=== PATIENT | male | born 1940 | race Caucasian/White ===

== ENCOUNTER → 2017-12-18 13:40 | Outpatient (CLI) | payer MEDICARE, OTHER, SELFPAY ==
[2017-12-18 14:04] LABS: Hematocrit 42.4 % (41-53); Mean Corpuscular HGB Conc 32.9 % (30-36); Mean Corpuscular Hemoglobin 27.9 PG (26-34); Mean Corpuscular Volume 84.9 fL (80-100); Platelet Count 179 X10^3/uL (150-400); Red Cell Distribution Width 17.6 % (11.6-14.8); White Blood Cell Count 7.3 X10^3/uL (4.5-11.0)
[2017-12-18 14:24] LABS: Alanine Aminotransferase 41 IU/L (21-72); Albumin 3.6 g/dL (3.5-5.0); Albumin Globulin Ratio 1.4 (1.0-2.8); Alkaline Phosphatase 75 U/L (38-126); Aspartate Aminotransferase 30 IU/L (17-59); BUN Creatinine Ratio 17.8 (6-22); Blood Urea Nitrogen 16 mg/dL (9-20); Calcium 8.8 mg/dL (8.4-10.2); Carbon Dioxide 29 mmol/L (22-32); Chloride 99 mmol/L (98-107); Estimated Glomerular Filt Rate > 60.0 mL/min (>60); Globulin 2.6 g/dL (1.7-4.1); Glucose 285 mg/dL (80-110); HEMOLYSIS 24 (0-50); Sodium 139 mmol/L (137-145); Total Protein 6.2 g/dL (6.3-8.2)
[2017-12-18 14:25] LABS: Potassium 5.6 mmol/L (3.4-5.1)
[2017-12-18 14:41] LABS: Free T4, Direct Thyroxine 1.11 ng/dL (0.78-2.19)
[2017-12-18 14:54] LABS: Thyroid Stimulating Hormone 0.83 uIU/mL (0.47-4.68)
== END ==
PROVIDERS: Psychiatry & Neurology Psychiatry; PCP Internal Medicine; Visit Provider Internal Medicine
DX: E11.9 Type 2 diabetes mellitus without complications (principal); D64.9 Anemia, unspecified; F33.9 Major depressive disorder, recurrent, unspecified
CPT/HCPCS: 36415; 80053; 83036; 84439; 84443; 85027

== ENCOUNTER → 2018-03-14 15:27 | Outpatient (CLI) | payer MEDICARE, OTHER, SELFPAY ==
[2018-03-14 17:01] LABS: Hemoglobin A1C% w Est Avg Glu 6.1 % (4.0-6.0)
[2018-03-14 17:22] LABS: BUN Creatinine Ratio 17.5 (6-22); Blood Urea Nitrogen 21 mg/dL (9-20); Calcium 8.9 mg/dL (8.4-10.2); Carbon Dioxide 31 mmol/L (22-32); Chloride 102 mmol/L (98-107); Estimated Glomerular Filt Rate 58.6 mL/min (>60); Glucose 161 mg/dL (80-110); HEMOLYSIS < 15 (0-50); Sodium 143 mmol/L (137-145)
== END ==
PROVIDERS: PCP Internal Medicine; Visit Provider Internal Medicine
DX: E11.65 Type 2 diabetes mellitus with hyperglycemia (principal)
CPT/HCPCS: 36415; 80048; 83036

== ENCOUNTER 2018-04-09 20:58 | Emergency (ER) | payer MEDICARE, OTHER, SELFPAY ==
--- NOTE | 2018-04-09 21:09 | ED_ITS ---
HPI - Abdominal Pain General Chief Complaint: Abdominal Pain Stated Complaint: abd pain Time Seen by Provider: 04/09/18 21:09 Source: patient Mode of arrival: ambulatory Limitations: no limitations History of Present Illness HPI narrative: 77-year-old male with a history of coronary artery disease and history of coronary artery bypass graft here for evaluation of epigastric or right upper quadrant abdominal pain. Patient states that it started approximately 30 min after he had ribs and ice cream for dinner. States that he has never had anything like this before. Symptoms been going on since just before arrival. The abdominal pain is associated with nausea and vomiting. No shortness of breath. Patient states that this is ?not heart pain?. Has not tried anything for this prior to arrival Related Data Home Medications Medication Instructions Recorded Confirmed aspirin 81 mg PO QDAY #0 02/27/17 03/12/18 Previous Rx's Medication Instructions Recorded insulin glargine [Lantus Solostar 40 unit SQ HS 90 Days #0 04/28/17 U-100 Insulin] furosemide 20 mg PO QAM #30 tab 05/07/17 Wiggins 5/16 Inch 0 item #100 06/13/17 Syringes: 1cc U-100 Insulin syr #200 06/13/17 Syringe 25g x 1 atorvastatin [Lipitor] 40 mg PO Q DAY #90 tab 06/25/17 fluoxetine 40 mg PO QDAY #180 cap 10/18/17 insulin aspart U-100 100 unit/mL 0 unit SUBCUT QIDACHS #9 box 03/11/18 subcutaneous pen metoprolol succinate [Toprol XL] 25 mg PO QDAY #90 tab 03/11/18 pantoprazole [Protonix] 40 mg PO QDAY #90 tab 03/11/18 Allergies Allergy/AdvReac Type Severity Reaction Status Date / Time amoxicillin [From Augmentin] AdvReac Intermediate DIARRHEA Verified 03/12/18 14: 17 cephalexin AdvReac Intermediate DIARRHEA Verified 03/12/18 14:17 clavulanic acid AdvReac Intermediate DIARRHEA Verified 03/12/18 14:17 [From Augmentin] metformin AdvReac Intermediate HEADACHE Verified 03/12/18 14:17 Review of Systems Constitutional Denies chills, Denies fever(s) and Denies malaise ENT Ears, Nose, Mouth, and Throat: Denies dizziness Cardiovascular Denies chest pain, Denies rapid heart rate, Denies radiating jaw, neck or arm pain, Denies dyspnea and Denies dyspnea on exertion Respiratory Denies dyspnea and Denies dyspnea on exertion Gastrointestinal Gastrointestinal: Reports abdominal pain, Denies change in stool character, Denies coffee ground emesis, Denies nausea and Denies vomiting Genitourinary Denies dysuria Musculoskeletal Denies myalgias and Denies arthralgias Integumentary/Breasts Denies lesions and Denies rash Neurologic Denies confusion and Denies dizziness Psychiatric Denies confusion Hematologic/Lymphatic Denies easy bleeding and Denies easy bruising Allergic/Immunologic Denies urticaria [facility] Medical History Anxiety (Chronic) Malignant neoplasm of head, 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) Anemia (Chronic) Coronary artery disease (Chronic) Diabetes mellitus (Chronic) Hyperlipidemia (Chronic) Skin cancer (Chronic) Surgical History History of radical neck surgery (Resolved ~2011) Status post coronary artery bypass graft (Inactive ~2005) Family History Father Fam hx-ischem heart disease Mother Family history of Alzheimer's disease Social History Smoking Status: Never smoker Exam Initial Vital Signs Initial Vital Signs: Vital Signs Temperature 97.9 F 04/09/18 21:14 Pulse Rate 68 04/09/18 21:14 Respiratory Rate 22 04/09/18 21:14 Blood Pressure 164/105 H 04/09/18 21:14 Pulse Oximetry 100 04/09/18 21:14 Const General: cooperative, healthy appearing, No comfortable (Uncomfortable) and well groomed Orientation: alert, awake and oriented x3 HENMT Head: normal to inspection and normocephalic Resp Effort & Inspection: normal respiratory effort Auscultation: clear to auscultation bilaterally Cardio Rate: regular rate Rhythm: regular rhythm GI Inspection: non-distended Palpation: soft, No firm and tender (Right upper quadrant, epigastric) Skin Lesions: no lesions Rashes: no rashes Neuro General: alert, awake and oriented x3 Extrem General: normal to inspection and capillary refill normal Right upper extremity: normal to inspection Left upper extremity: normal to inspection Right lower extremity: normal to inspection Left lower extremity: normal to inspection Psych Appearance: grossly normal and well kempt Course Orders Ordered: ED Orders 04/09/18 21:11 US abdomen complete Stat 04/09/18 21:15 Complete Blood Count AUTO DIFF Stat Comprehensive Metabolic Panel Stat Lipase Stat 04/09/18 21:31 EKG-12 Lead Stat Discontinued Medications Al Hydrox/Mg Hydrox/Simethicone 20 ml/ Lidocaine HCl 15 ml 0 ml PO NOW ONE Stop: 04/09/18 21:11 Last Admin: 04/10/18 00:19 Dose: Not Given Hydromorphone HCl (Dilaudid) 1 mg IV NOW ONE Stop: 04/09/18 21:32 Sodium Chloride (Normal Saline 0.9%) 1,000 mls @ 1,000 mls/hr IV BOLUS ONE Stop: 04/09/18 22:09 Last Infusion: 04/09/18 22:32 Dose: 0 mls/hr Admin: 04/09/18 21:35 Dose: 1,000 mls/hr Morphine Sulfate (Morphine) 4 mg IV NOW ONE Stop: 04/09/18 21:11 Last Admin: 04/09/18 21:25 Dose: 4 mg Morphine Sulfate (Morphine Sulfate) 4 mg IV NOW ONE Stop: 04/09/18 21:40 Last Admin: 04/09/18 21:40 Dose: 4 mg Ondansetron HCl (Zofran) 4 mg IV NOW ONE Stop: 04/09/18 21:11 Last Admin: 04/09/18 21:25 Dose: 4 mg Ondansetron HCl (Zofran Odt) 4 mg PO NOW ONE Stop: 04/10/18 00:33 Last Admin: 04/10/18 00:36 Dose: 4 mg Vital Signs - 8 hr 04/09/18 21:14 04/09/18 22:47 04/10/18 00:18 Temperature 97.9 F Pulse Rate 68 82 84 Respiratory Rate 22 16 21 Blood Pressure 164/105 H Blood Pressure [Right Arm] 167/68 H 168/64 H Pulse Oximetry 100 95 97 MDM - Abdominal Pain Lab Data Attestation: I reviewed the patient's lab results. Result diagrams: 04/09/18 21:15 04/09/18 21:15 Lab Results 04/09/18 04/09/18 Range/Units 21:15 21:15 WBC 7.9 (4.5-11.0) X10^3/uL RBC 4.99 (4.5-5.9) X10^6/uL Hgb 13.9 (13.5-17.5) g/dL Hct 42.5 (41-53) % MCV 85.1 (80-100) fL MCH 27.9 (26-34) PG MCHC 32.8 (30-36) % RDW 16.2 H (11.6-14.8) % Plt Count 287 (150-400) X10^3/uL Neut % (Auto) 55.6 (50-75) % Lymph % (Auto) 32.2 (25-40) % [place] % (Auto) 7.2 (3-14) % Eos % (Auto) 3.6 (2-4) % Baso % (Auto) 1.4 (0-2) % Neut # (Auto) 4400 (7273-5203) /uL Sodium 144 (137-145) mmol/L Potassium 3.6 (3.4-5.1) mmol/L Chloride 106 (98-107) mmol/L Carbon Dioxide 25 (22-32) mmol/L BUN 17 (9-20) mg/dL Creatinine 1.00 (0.66-1.25) mg/dL Estimated GFR > 60.0 (>60) mL/min BUN/Creatinine Ratio 17.0 (6-22) Glucose 107 (80-110) mg/dL Calcium 9.9 (8.4-10.2) mg/dL Total Bilirubin 0.8 (0.2-1.3) mg/dL AST 60 H (17-59) IU/L ALT 51 (21-72) IU/L Alkaline Phosphatase 78 (38-126) U/L Total Protein 7.4 (6.3-8.2) g/dL Albumin 4.5 (3.5-5.0) g/dL Globulin 2.9 (1.7-4.1) g/dL Albumin/Globulin Ratio 1.6 (1.0-2.8) Lipase 101 (23-300) U/L Imaging Data US - abdomen: Radiologist's impression: Cholelithiasis. No ductal dilation. No medina cholecystic fluid. Patient does demonstrate a positive sonographic Stringer sign. Study limited by bowel gas ECG Data Attestation: I personally reviewed and interpreted this ECG as follows: Prior ECG tracings: not available for review Interpretation: Atrial fibrillation Ventricular rate is 78 Left axis deviation Occasional PVC QRS 141 milliseconds Normal QTC Nonspecific ST T wave changes MDM Narrative Medical decision making narrative: Patient with almost a complete resolution of his abdominal pain after the pain medication here in the ER. Of right upper quadrant ultrasound does not show any signs of cholecystitis. He does have cholelithiasis. Given his history of the pain starting after eating a meal with ribs and ice cream and also with a positive sonographic Stringer sign I do feel that his symptoms today are most likely related to his coli lithiasis. Patient reported a improvement in nausea and vomiting with the IV nausea medicines here in the ER. Right after the patient received his discharge instructions prior to his ride arriving here in the ER patient did vomit on the floor. He reported that afterwards he again felt much better. He was given a oral Zofran. Patient states that his symptoms today were completely different than his prior cardiac pain. EKG shows just nonspecific changes. I do feel that given his history and physical exam that this is most likely gallbladder related pathology and not cardiac or small-bowel obstruction. Despite this he was given return precautions with regard to both of these issues. He was instructed he needed to contact his primary care doctor for follow-up in to discuss the indications for a referral to see General surgery. Patient expressed understanding and agreement with plan. Discharge Plan Departure Patient Disposition: Home Clinical Impression: Cholelithiasis, Nausea & vomiting, Biliary colic Discharge Date/Time: 04/10/18 00:43 Interventions: ED Discharge Assessment Last Done: 04/10/18 00:20 Instructions: Gallstones (Alternative Therapy), Gallstones, DI for Biliary Colic Activity Restrictions/Additional Instructions: Recommend that you avoid foods that contain a high amount of fats or oils. Call your primary care doctor tomorrow to discuss the indications for referral to see General surgery. Return to the emergency department for any new or worsening symptoms Prescriptions: No Action aspirin 81 MG tablet,delayed release (DR/EC) 81 mg PO QDAY Qty: 0 RF: 0 insulin glargine [Lantus Solostar U-100 Insulin] 100 UNIT/1 ML insulin pen 40 unit SQ HS 90 Days Qty: 0 RF: 3 furosemide 20 MG tablet 20 mg PO QAM Qty: 30 RF: 11 Wiggins 5/16 Inch Qty: 100 RF: PRN Syringes: 1cc U-100 Insulin Syringe 25g x 1 Qty: 200 RF: PRN atorvastatin [Lipitor] 40 MG tablet 40 mg PO Q DAY Qty: 90 RF: 3 fluoxetine 20 MG capsule 40 mg PO QDAY Qty: 180 RF: 2 pantoprazole [Protonix] 40 mg tablet,delayed release (DR/EC) 40 mg PO QDAY Qty: 90 RF: 3 metoprolol succinate [Toprol XL] 25 mg tablet extended release 24 hr 25 mg PO QDAY Qty: 90 RF: 3 insulin aspart U-100 [Novolog Flexpen U-100 Insulin] 100 unit/mL insulin pen SUBCUT QIDACHS Qty: 9 RF: 3
--- NOTE | 2018-04-09 21:11 | DI.US.S_ITS ---
PROCEDURE: US ABDOMEN COMPLETE INDICATIONS: RUQ pain TECHNIQUE: Real-time scanning was performed of the abdominal and retroperitoneal organs, with image documentation. COMPARISON: [facility], US, ABDOMEN COMPLETE, 12/16/2006, 10:32. FINDINGS: Liver: Liver is normal in size and homogeneous in echotexture. Gallbladder: 17 mm gallstone present which is not visualized with the patient in a left lateral decubitus so mobility of the stone is indeterminate. No gallbladder wall thickening Biliary ducts: Intrahepatic bile ducts are non-dilated. Extrahepatic bile duct caliber measures 5.1 mm. Normal is 6-7 mm or less in diameter, or 10 mm or less post-cholecystectomy. Pancreas: Not well-visualized. Spleen: Spleen is normal in size and homogeneous in echotexture. Kidneys: Kidneys are normal in size and echotexture. No hydronephrosis or nephrolithiasis. No solid masses. Aorta: Not well-seen. Iliacs: Not well-seen. IVC: Not well-seen. Miscellaneous: No free abdominal fluid. IMPRESSION: 17 mm gallstone present near the gallbladder neck which is not visible on the left lateral decubitus images and mobility of the stone is indeterminate. Recommend clinical correlation. Increased hepatic echogenicity noted possibly related to hepatic steatosis but other sources of hepatocellular disease cannot be excluded. Recommend clinical correlation. Dictated by: Delfino ZHAO Interpreted: Diego Elaine MD on 04/10/2018 at 8:06 Approved by: Diego Elaine M.D. on 04/10/2018 at 15:20
[2018-04-09 21:14] VITALS: BP 164/105; PULSE 68; RESP 22; TEMP 36.6; O2SAT 100; BMI 28.7
[2018-04-09 21:24] LABS: Add Manual Diff / Slide Review NO; Basophils Percent Auto 1.4 % (0-2); Eosinophils Percent Auto 3.6 % (2-4); Hematocrit 42.5 % (41-53); Hemoglobin 13.9 g/dL (13.5-17.5); Lymphocytes Percent Auto 32.2 % (25-40); Mean Corpuscular HGB Conc 32.8 % (30-36); Mean Corpuscular Hemoglobin 27.9 PG (26-34); Mean Corpuscular Volume 85.1 fL (80-100); Monocytes Percent Auto 7.2 % (3-14); Neutrophils Absolute Auto 4400 /uL (3000-5900); Neutrophils Percent Auto 55.6 % (50-75); Platelet Count 287 X10^3/uL (150-400); Red Blood Cell Count 4.99 X10^6/uL (4.5-5.9); Red Cell Distribution Width 16.2 % (11.6-14.8); White Blood Cell Count 7.9 X10^3/uL (4.5-11.0)
[2018-04-09] MEDS: MORPHINE 4 MG/ML INJ IV (21:25)
[2018-04-09] MEDS: ONDANSETRON 4 MG/2 ML INJ IV (21:25)
[2018-04-09] MEDS: SODIUM CHLORIDE 0.9% 1,000 ML 1000 ML IV (21:35)
[2018-04-09 21:36] LABS: Alanine Aminotransferase 51 IU/L (21-72); Albumin 4.5 g/dL (3.5-5.0); Albumin Globulin Ratio 1.6 (1.0-2.8); Alkaline Phosphatase 78 U/L (38-126); Aspartate Aminotransferase 60 IU/L (17-59); Bilirubin Total 0.8 mg/dL (0.2-1.3); Blood Urea Nitrogen 17 mg/dL (9-20); Calcium 9.9 mg/dL (8.4-10.2); Carbon Dioxide 25 mmol/L (22-32); Chloride 106 mmol/L (98-107); Estimated Glomerular Filt Rate > 60.0 mL/min (>60); Globulin 2.9 g/dL (1.7-4.1); Glucose 107 mg/dL (80-110); HEMOLYSIS < 15 (0-50); Lipase 101 U/L (23-300); Potassium 3.6 mmol/L (3.4-5.1); Sodium 144 mmol/L (137-145); Total Protein 7.4 g/dL (6.3-8.2)
[2018-04-09] MEDS: MORPHINE 5 MG/ML INJ 4 MG IV (21:40)
[2018-04-09 22:47] VITALS: BP 167/68; PULSE 82; RESP 16; O2SAT 95
[2018-04-10 00:18] VITALS: BP 168/64; PULSE 84; RESP 21; O2SAT 97
[2018-04-10] MEDS: ONDANSETRON 4 MG ODT PO (00:36)
--- NOTE | 2018-04-10 00:41 | PC.NURSE ---
He vomited once while waiting for his ride home.DR Hodges notified and he was give a zofran odt.He stated he felt better after,no pain and no nausea.He left ambulatory with a steady gait with Monique.He was instructed rto return with any new or worsening symptoms.
== END 2018-04-10 00:43 | disposition home or self-care (01) ==
PROVIDERS: Emergency Provider Emergency Medicine; Family Provider Internal Medicine; PCP Internal Medicine
DX: K80.20 Calculus of gallbladder without cholecystitis without obstruction (principal); R11.2 Nausea with vomiting, unspecified; K80.50 Calculus of bile duct without cholangitis or cholecystitis without obstruction
CPT/HCPCS: 76700; 80053; 83690; 85025; 93005; 96361; 96374; 96375; 99283; 99285; J2270; J2405

== ENCOUNTER → 2018-05-01 09:26 | Outpatient (CLI) | payer MEDICARE, OTHER, SELFPAY ==
--- NOTE | 2018-05-01 09:27 | DI.NM.S_ITS ---
PROCEDURE: NM HIDA WITH CCK PHARMACEUTICAL: 4.7 mCi Tc-99m mebrofenin IV; 1.6 mcg CCK IV. INDICATIONS: gallstones, biliary colic TECHNIQUE: Following intravenous administration of Tc-99m mebrofenin, sequential anterior abdominal images were obtained. To evaluate the contractile response of the gallbladder in response to Cholecystokinin (CCK), sincalide (0.02 ?g/kg) was administered by slow intravenous infusion approximately 60 minutes after the administration of the radiopharmaceutical. Sequential imaging was continued for 30 minutes after the start of CCK infusion. Gallbladder ejection fraction was calculated. COMPARISON: [facility], US ABDOMEN COMPLETE, 04/09/2018, 21:35. FINDINGS: Biliary scan: There is normal tracer uptake and excretion by the liver. There is normal visualization of the intrahepatic ducts, common bile duct, and gallbladder. There is normal tracer transit into the duodenum. CCK stimulation: There is normal contractile response of the gallbladder to CCK infusion. The calculated gallbladder ejection fraction is 92%; normal values are above 35%. It has been shown that any patient abdominal pain after CCK administration is related to the rate of CCK injection, rather than to any underlying gallbladder disease (Clinical Nuclear Medicine 2012; 37: 63-70. Journal of Nuclear Medicine 2014; 55: 1-9). IMPRESSION: Normal examination without evidence of cholecystitis. Dictated by: Angelique Nguyen MD, PhD on 05/01/2018 at 12:02 Approved by: Angelique Nguyen MD, PhD on 05/01/2018 at 12:07
== END ==
PROVIDERS: PCP Internal Medicine; Visit Provider Internal Medicine
DX: K80.20 Calculus of gallbladder without cholecystitis without obstruction (principal); K80.50 Calculus of bile duct without cholangitis or cholecystitis without obstruction
CPT/HCPCS: 78227; A9537; J2805

== ENCOUNTER → 2018-09-19 10:58 | Outpatient (CLI) | payer MEDICARE, OTHER, SELFPAY ==
[2018-09-19 12:50] LABS: Alanine Aminotransferase 27 IU/L (21-72); Albumin 4.2 g/dL (3.5-5.0); Albumin Globulin Ratio 1.4 (1.0-2.8); Alkaline Phosphatase 73 U/L (38-126); Aspartate Aminotransferase 29 IU/L (17-59); BUN Creatinine Ratio 24.4 (6-22); Bilirubin Total 0.6 mg/dL (0.2-1.3); Blood Urea Nitrogen 22 mg/dL (9-20); Carbon Dioxide 28 mmol/L (22-32); Chloride 103 mmol/L (98-107); Estimated Glomerular Filt Rate > 60.0 mL/min (>60); Globulin 2.9 g/dL (1.7-4.1); Glucose 68 mg/dL (80-110); HEMOLYSIS < 15 (0-50); Sodium 141 mmol/L (137-145); Total Protein 7.1 g/dL (6.3-8.2)
== END ==
PROVIDERS: PCP Internal Medicine; Visit Provider Internal Medicine
DX: E11.9 Type 2 diabetes mellitus without complications (principal); I10 Essential (primary) hypertension
CPT/HCPCS: 36415; 80053; 83036

== ENCOUNTER → 2019-03-05 13:52 | Outpatient (CLI) | payer MEDICARE, OTHER, SELFPAY ==
[2019-03-05 14:24] LABS: Hemoglobin A1C% w Est Avg Glu 6.3 % (4.0-6.0)
[2019-03-05 14:33] LABS: Alanine Aminotransferase 23 IU/L (21-72); Albumin 3.9 g/dL (3.5-5.0); Albumin Globulin Ratio 1.6 (1.0-2.8); Alkaline Phosphatase 52 U/L (38-126); Aspartate Aminotransferase 24 IU/L (17-59); BUN Creatinine Ratio 24.5 (6-22); Bilirubin Total 0.7 mg/dL (0.2-1.3); Blood Urea Nitrogen 27 mg/dL (9-20); Calcium 9.3 mg/dL (8.4-10.2); Carbon Dioxide 30 mmol/L (22-32); Chloride 99 mmol/L (98-107); Cholesterol 105 mg/dL (140-199); Estimated Glomerular Filt Rate > 60.0 mL/min (>60); Globulin 2.4 g/dL (1.7-4.1); Glucose 212 mg/dL (80-110); HDL Cholesterol 27 mg/dL (40-60); HEMOLYSIS < 15 (0-50); LDL Cholesterol Calculated 46 mg/dL (<100); Potassium 4.2 mmol/L (3.4-5.1); Sodium 140 mmol/L (137-145); Total Protein 6.3 g/dL (6.3-8.2); Triglycerides 160 mg/dL (35-150)
== END ==
PROVIDERS: PCP Internal Medicine; Visit Provider Internal Medicine
DX: E11.9 Type 2 diabetes mellitus without complications (principal); E78.5 Hyperlipidemia, unspecified; I10 Essential (primary) hypertension
CPT/HCPCS: 36415; 80053; 80061; 83036

== ENCOUNTER → 2019-09-04 15:58 | Outpatient (CLI) | payer MEDICARE, OTHER, SELFPAY ==
[2019-09-04 17:06] LABS: Add Manual Diff / Slide Review NO; Basophils Absolute Auto 100 /uL (0-100); Basophils Percent Auto 1.3 % (0-2); Eosinophils Absolute Auto 200 /uL (0-450); Eosinophils Percent Auto 3.6 % (2-4); Hematocrit 39.5 % (41-53); Hemoglobin 12.9 g/dL (13.5-17.5); Lymphocytes Absolute Auto 800 /uL (1100-4500); Mean Corpuscular HGB Conc 32.8 % (30-36); Mean Corpuscular Hemoglobin 29.1 PG (26-34); Mean Corpuscular Volume 88.9 fL (80-100); Monocytes Absolute Auto 400 /uL (0-900); Monocytes Percent Auto 7.6 % (3-14); Neutrophils Absolute Auto 4300 /uL (1500-7000); Neutrophils Percent Auto 73.5 % (50-75); Platelet Count 157 X10^3/uL (150-400); Red Blood Cell Count 4.45 X10^6/uL (4.5-5.9); Red Cell Distribution Width 15.1 % (11.6-14.8); White Blood Cell Count 5.8 X10^3/uL (4.5-11.0)
[2019-09-04 18:02] LABS: Alanine Aminotransferase 20 IU/L (<50); Albumin 3.4 g/dL (3.5-5.0); Albumin Globulin Ratio 1.5 (1.0-2.8); Alkaline Phosphatase 61 U/L (38-126); Aspartate Aminotransferase 24 IU/L (17-59); BUN Creatinine Ratio 13.6 (6-22); Blood Urea Nitrogen 15 mg/dL (9-20); Calcium 9.1 mg/dL (8.4-10.2); Carbon Dioxide 31 mmol/L (22-32); Chloride 100 mmol/L (98-107); Estimated Glomerular Filt Rate > 60.0 mL/min (>60); Globulin 2.3 g/dL (1.7-4.1); Glucose 356 mg/dL (80-110); HEMOLYSIS < 15 (0-50); Sodium 136 mmol/L (137-145); Total Protein 5.7 g/dL (6.3-8.2)
[2019-09-04 18:11] LABS: HEMOLYSIS < 15 (0-50); Iron 49 ug/dL (49-181)
[2019-09-04 18:13] LABS: Potassium 5.4 mmol/L (3.4-5.1)
[2019-09-04 18:18] LABS: Hemoglobin A1C% w Est Avg Glu 8.4 % (4.0-6.0)
[2019-09-04 18:23] LABS: Percent Iron Saturation 17 % (20-50); Total Iron Binding Capacity 288 ug/dL (261-462); Transferrin 220 mg/dL (206-381)
== END ==
PROVIDERS: PCP Internal Medicine; Referring Provider Internal Medicine; Visit Provider Internal Medicine
DX: D64.9 Anemia, unspecified (principal); E11.9 Type 2 diabetes mellitus without complications; I10 Essential (primary) hypertension
CPT/HCPCS: 36415; 80053; 83036; 83540; 83550; 85025

== ENCOUNTER → 2019-12-02 12:14 | Outpatient (CLI) | payer MEDICARE, OTHER, SELFPAY ==
[2019-12-02 13:40] LABS: Hemoglobin A1C% w Est Avg Glu 6.5 % (4.0-6.0)
[2019-12-02 13:48] LABS: BUN Creatinine Ratio 15.9 (6-22); Blood Urea Nitrogen 17 mg/dL (9-20); Calcium 8.9 mg/dL (8.4-10.2); Carbon Dioxide 28 mmol/L (22-32); Chloride 103 mmol/L (98-107); Estimated Glomerular Filt Rate > 60.0 mL/min (>60); Glucose 62 mg/dL (80-110); HEMOLYSIS < 15 (0-50); Potassium 3.8 mmol/L (3.4-5.1); Sodium 140 mmol/L (137-145)
== END ==
PROVIDERS: PCP Internal Medicine; Referring Provider Internal Medicine; Visit Provider Internal Medicine
DX: E11.65 Type 2 diabetes mellitus with hyperglycemia (principal); I10 Essential (primary) hypertension
CPT/HCPCS: 36415; 80048; 83036

== ENCOUNTER → 2020-06-03 09:21 | Outpatient (CLI) | payer MEDICARE, OTHER, SELFPAY ==
[2020-06-03 11:09] LABS: Hemoglobin A1C% w Est Avg Glu 6.8 % (4.0-6.0)
[2020-06-03 11:21] LABS: Blood Urea Nitrogen 16 mg/dL (9-20); Estimated Glomerular Filt Rate 56.6 mL/min (>60)
== END ==
PROVIDERS: PCP Internal Medicine; Referring Provider Internal Medicine; Visit Provider Internal Medicine
DX: E11.65 Type 2 diabetes mellitus with hyperglycemia (principal); I10 Essential (primary) hypertension; Z79.4 Long term (current) use of insulin
CPT/HCPCS: 36415; 82565; 83036; 84520

== ENCOUNTER → 2020-10-05 14:33 | Outpatient (CLI) | payer MEDICARE, OTHER, SELFPAY ==
[2020-10-05] MEDS: COVID-19 VACC #1, MRNA(MOD) 100 MCG/0.5 ML VIAL IM (14:42)
[2020-10-18 15:48] LABS: Alanine Aminotransferase 25 IU/L (<50); Albumin 3.9 g/dL (3.5-5.0); Albumin Globulin Ratio 1.1 (1.0-2.8); Alkaline Phosphatase 102 U/L (38-126); Aspartate Aminotransferase 111 IU/L (17-59); BUN Creatinine Ratio 21.3 (6-22); Bilirubin Total 0.9 mg/dL (0.2-1.3); Blood Urea Nitrogen 19 mg/dL (9-20); Calcium 9.3 mg/dL (8.4-10.2); Carbon Dioxide 31 mmol/L (22-32); Chloride 102 mmol/L (98-107); Cholesterol 92 mg/dL (140-199); Estimated Glomerular Filt Rate > 60.0 mL/min (>60); Globulin 3.4 g/dL (1.7-4.1); Glucose 98 mg/dL (80-110); HDL Cholesterol 24 mg/dL (40-60); HEMOLYSIS 24 (0-50); LDL Cholesterol Calculated 59 mg/dL (<100); Potassium 3.8 mmol/L (3.4-5.1); Sodium 140 mmol/L (137-145); Total Protein 7.3 g/dL (6.3-8.2); Triglycerides 43 mg/dL (35-150)
== END ==
PROVIDERS: PCP Internal Medicine; Visit Provider Internal Medicine
DX: Z23 Encounter for immunization (principal); E78.5 Hyperlipidemia, unspecified
CPT/HCPCS: 0011A; 36415; 80053; 80061; 91301

== ENCOUNTER → 2020-11-02 14:38 | Outpatient (CLI) | payer MEDICARE, OTHER, SELFPAY ==
[2020-11-02] MEDS: COVID-19 VACC #2, MRNA(MOD) 100 MCG/0.5 ML VIAL IM (14:50)
== END ==
PROVIDERS: PCP Internal Medicine; Visit Provider Internal Medicine
DX: Z23 Encounter for immunization (principal)
CPT/HCPCS: 0012A; 91301

== ENCOUNTER → 2020-12-08 12:32 | Outpatient (CLI) | payer MEDICARE, OTHER, SELFPAY ==
[2020-12-08 15:18] LABS: Hemoglobin A1C% w Est Avg Glu 6.8 % (4.0-6.0)
[2020-12-08 15:21] LABS: Alanine Aminotransferase 39 IU/L (<50); Albumin 3.6 g/dL (3.5-5.0); Albumin Globulin Ratio 1.4 (1.0-2.8); Alkaline Phosphatase 86 U/L (38-126); Aspartate Aminotransferase 42 IU/L (17-59); BUN Creatinine Ratio 19.7 (6-22); Bilirubin Total 0.4 mg/dL (0.2-1.3); Blood Urea Nitrogen 24 mg/dL (9-20); Calcium 8.8 mg/dL (8.4-10.2); Carbon Dioxide 29 mmol/L (22-32); Chloride 103 mmol/L (98-107); Globulin 2.5 g/dL (1.7-4.1); Glucose 220 mg/dL (80-110); HEMOLYSIS < 15 (0-50); Potassium 4.5 mmol/L (3.4-5.1); Sodium 139 mmol/L (137-145); Total Protein 6.1 g/dL (6.3-8.2)
== END ==
PROVIDERS: PCP Internal Medicine; Referring Provider Internal Medicine; Visit Provider Internal Medicine
DX: E11.9 Type 2 diabetes mellitus without complications (principal); I10 Essential (primary) hypertension; Z79.4 Long term (current) use of insulin
CPT/HCPCS: 36415; 80053; 83036

== ENCOUNTER → 2021-06-07 11:25 | Outpatient (CLI) | payer MEDICARE, OTHER, SELFPAY ==
[2021-06-07 12:59] LABS: Hemoglobin A1C% w Est Avg Glu 6.5 % (4.0-6.0)
[2021-06-07 13:14] LABS: Alanine Aminotransferase 21 IU/L (<50); Albumin 3.4 g/dL (3.5-5.0); Albumin Globulin Ratio 1.6 (1.0-2.8); Alkaline Phosphatase 50 U/L (38-126); Aspartate Aminotransferase 24 IU/L (17-59); Bilirubin Total 0.6 mg/dL (0.2-1.3); Blood Urea Nitrogen 24 mg/dL (9-20); Carbon Dioxide 29 mmol/L (22-32); Chloride 104 mmol/L (98-107); Estimated Glomerular Filt Rate > 60.0 mL/min (>60); Globulin 2.1 g/dL (1.7-4.1); Glucose 147 mg/dL (80-110); HEMOLYSIS < 15 (0-50); Potassium 4.5 mmol/L (3.4-5.1); Sodium 139 mmol/L (137-145); Total Protein 5.5 g/dL (6.3-8.2)
== END ==
PROVIDERS: PCP Internal Medicine; Referring Provider Internal Medicine; Visit Provider Internal Medicine
DX: E11.9 Type 2 diabetes mellitus without complications (principal); Z79.4 Long term (current) use of insulin; I10 Essential (primary) hypertension
CPT/HCPCS: 36415; 80053; 83036

== ENCOUNTER → 2021-06-27 15:46 | Outpatient (CLI) | payer MEDICARE, OTHER, SELFPAY ==
[2021-06-27 16:45] LABS: COVID19 -Nasal RAPID Negative (Negative)
== END ==
PROVIDERS: PCP Internal Medicine; Visit Provider Nurse Practitioner Family
DX: Z20.822 Contact with and (suspected) exposure to COVID-19 (principal)
CPT/HCPCS: 87635

== ENCOUNTER → 2021-12-12 09:04 | Outpatient (CLI) | payer MEDICARE, OTHER, SELFPAY ==
[2021-12-12 10:48] LABS: Alanine Aminotransferase 32 IU/L (<50); Albumin 3.2 g/dL (3.5-5.0); Albumin Globulin Ratio 1.5 (1.0-2.8); Alkaline Phosphatase 70 U/L (38-126); Aspartate Aminotransferase 32 IU/L (17-59); BUN Creatinine Ratio 18.3 (6-22); Bilirubin Total 0.4 mg/dL (0.2-1.3); Blood Urea Nitrogen 20 mg/dL (9-20); Calcium 8.2 mg/dL (8.4-10.2); Carbon Dioxide 29 mmol/L (22-32); Chloride 105 mmol/L (98-107); Cholesterol 115 mg/dL (140-199); Estimated Glomerular Filt Rate > 60 mL/min (>60); Globulin 2.2 g/dL (1.7-4.1); Glucose 99 mg/dL (80-110); HDL Cholesterol 32 mg/dL (40-60); HEMOLYSIS < 15 (0-50); LDL Cholesterol Calculated 63 mg/dL (<100); Sodium 140 mmol/L (137-145); Total Protein 5.4 g/dL (6.3-8.2); Triglycerides 100 mg/dL (35-150)
== END ==
PROVIDERS: PCP Internal Medicine; Referring Provider Internal Medicine; Visit Provider Internal Medicine
DX: E11.9 Type 2 diabetes mellitus without complications (principal); I10 Essential (primary) hypertension; E78.5 Hyperlipidemia, unspecified; I25.10 Atherosclerotic heart disease of native coronary artery without angina pectoris; Z79.4 Long term (current) use of insulin
CPT/HCPCS: 36415; 80053; 80061; 83036

== ENCOUNTER → 2022-06-11 11:14 | Outpatient (CLI) | payer MEDICARE, OTHER, SELFPAY ==
[2022-06-11 13:33] LABS: Alanine Aminotransferase 26 IU/L (<50); Albumin 3.4 g/dL (3.5-5.0); Albumin Globulin Ratio 1.4 (1.0-2.8); Alkaline Phosphatase 69 U/L (38-126); Aspartate Aminotransferase 26 IU/L (17-59); BUN Creatinine Ratio 15.5 (6-22); Bilirubin Total 0.4 mg/dL (0.2-1.3); Blood Urea Nitrogen 16 mg/dL (9-20); Calcium 8.3 mg/dL (8.4-10.2); Carbon Dioxide 27 mmol/L (22-32); Chloride 104 mmol/L (98-107); Cholesterol 116 mg/dL (140-199); Estimated Glomerular Filt Rate > 60 mL/min (>60); Globulin 2.5 g/dL (1.7-4.1); Glucose 131 mg/dL (80-110); HDL Cholesterol 32 mg/dL (40-60); HEMOLYSIS < 15 (0-50); LDL Cholesterol Calculated 69 mg/dL (<100); Potassium 3.7 mmol/L (3.4-5.1); Sodium 140 mmol/L (137-145); Total Protein 5.9 g/dL (6.3-8.2); Triglycerides 74 mg/dL (35-150)
[2022-06-12 15:44] LABS: Hemoglobin A1C% w Est Avg Glu 5.6 % (4.0-6.0)
== END ==
PROVIDERS: PCP Internal Medicine; Referring Provider Internal Medicine; Visit Provider Internal Medicine
DX: E11.9 Type 2 diabetes mellitus without complications (principal); I10 Essential (primary) hypertension; I25.10 Atherosclerotic heart disease of native coronary artery without angina pectoris
CPT/HCPCS: 36415; 80053; 80061; 83036

== ENCOUNTER 2022-10-18 15:50 | Inpatient (IN) | payer MEDICARE, SELFPAY ==
[2022-10-18] VITALS (15 sets, daily range): BP systolic 165–221; BP diastolic 63–99; PULSE 52–89; RESP 10–19; TEMP 36.4–36.9; O2SAT 97–99; BMI 15.1
--- NOTE | 2022-10-18 16:05 | DI.CT.S_ITS ---
PROCEDURE: CT STROKE INDICATIONS: stroke TECHNIQUE: Noncontrast 4.5 mm thick angled axial sections acquired from the foramen magnum to the vertex, with coronal reformats. For radiation dose reduction, the following was used: automated exposure control, adjustment of mA and/or kV according to patient size. COMPARISON: [facility], CT, HEAD WITHOUT CONTRAST, 08/16/2011, 15:45. FINDINGS: Image quality: Excellent. CSF spaces: Basal cisterns are patent. No extra-axial fluid collections. The ventricles are symmetric in size and shape. Brain: No intracranial bleeds or masses. There is cerebral volume loss for age, with resultant ventricular and sulcal prominence. There are periventricular and deep white matter chronic small vessel ischemic changes. There is intracranial internal carotid artery atherosclerosis. Skull and face: Calvarium and visualized facial bones appear intact, without suspicious lesions. Sinuses: There is mucosal thickening and air-fluid level in the right maxillary sinus. The mastoids are clear. IMPRESSION: 1. No acute intracranial abnormalities. 2. Cerebral volume loss and chronic microvascular ischemic changes. 3. Right maxillary sinusitis. The result was discussed with ER nurse Sarah prior to dictation. This study fulfills neurological imaging criteria for inclusion or exclusion of acute stroke therapies based on available published neurological guidelines. Dictated by: Liz Knowles M.D. on 10/18/2022 at 16:20 Approved by: Liz Knowles M.D. on 10/18/2022 at 16:25
--- NOTE | 2022-10-18 16:06 | ED_ITS ---
HPI - Neuro Symptoms/Deficit General Chief Complaint: Neuro Symptoms/Deficit Stated Complaint: It's like I can't think, Trouble concentrating Time Seen by Provider: 10/18/22 16:05 History of Present Illness HPI Narrative: 82-year-old male nonsmoker with history of hypertension and diabetes presents under his own care with a chief complaint of 30 minutes of confusion, difficulty finding words and trouble walking straight line. He states that he was in his normal state of health prior to this and denies any trauma or fever. He denies blurred vision. He denies any numbness, tingling or weakness of his extremities. He has no chest pain, shortness of breath or palpitations. He denies any abdominal pain, nausea, vomiting or diarrhea. He is had no recent trauma or injury. He is activated as a code stroke soon after arrival Related Data Home Medications Medication Instructions Recorded Confirmed cholecalciferol (vitamin D3) 50 50 mcg PO DAILY 12/01/21 07/25/22 mcg (2,000 unit) capsule ferrous sulfate 325 mg (65 mg 650 mg PO DAILY 12/01/21 07/25/22 iron) tablet (Feosol) Previous Rx's Medication Instructions Recorded [place] 5/16 Inch 0 item ##100 06/13/17 Syringes: 1cc U-100 Insulin syr ##200 06/13/17 Syringe 25g x 1 blood sugar diagnostic (Blood #250 ea 03/08/20 Glucose Test strips) atorvastatin 40 mg tablet (Lipitor) 40 mg PO Q DAY #90 tabs 09/28/21 metoprolol succinate 25 mg 25 mg PO DAILY #90 tabs 09/28/21 tablet,extended release 24 hr pantoprazole 40 mg tablet,delayed 40 mg PO QDAY #90 tabs 09/28/21 release (Protonix) fluoxetine 20 mg capsule 20 mg PO QDAY #90 caps 03/16/22 insulin aspart U-100 100 unit/mL 1 - 12 unit (0.01 - 0.12 mL) 06/15/22 (3 mL) subcutaneous pen (Novolog SUBCUT QACHS PRN hyperglycemia #30 FlexPen U-100 Insulin aspart) mL insulin glargine 100 unit/mL (3 45 unit (0.45 mL) SUBCUT DAILY #75 06/15/22 mL) subcutaneous pen (Lantus mL Solostar U-100 Insulin) Allergies Allergy/AdvReac Type Severity Reaction Status Date / Time amoxicillin [From Augmentin] AdvReac Intermediate DIARRHEA Verified 07/25/22 18:59 cephalexin AdvReac Intermediate DIARRHEA Verified 07/25/22 18:59 clavulanic acid AdvReac Intermediate DIARRHEA Verified 07/25/22 18:59 [From Augmentin] metformin AdvReac Intermediate HEADACHE Verified 07/25/22 18:59 Review of Systems Review of Systems Narrative: GENERAL: Denies chills, fatigue, malaise, fever, sweats. HEENT: Denies sinus pain, ear pain, sore throat, difficulty swallowing, dizziness. RESPIRATORY: Denies dyspnea, cough, wheezing, hemoptysis, sputum. CARDIOVASCULAR: Denies chest pain, palpitations, orthopnea, edema, GASTROINTESTINAL: Denies nausea, vomiting, abdominal pain, diarrhea, constipation, melena. : Denies dysuria, frequency, incontinence, hematuria, urinary retention. MUSCULOSKELETAL: denies weakness, joint pain, or bony pain SKIN: Denies rash, skin lesions, or other NEUROLOGIC: See HPI PSYCHIATRIC: No concerning psychosocial issues. 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) Mixed hyperlipidemia (09/22/15) Persistent depressive disorder Recurrent major depressive disorder, in partial remission Skin cancer Type 2 diabetes mellitus with hyperglycemia (09/22/15) Type 2 diabetes mellitus without complication Surgical History History of radical neck surgery (~2011) Status post coronary artery bypass graft (~2005) Family History Father Fam hx-ischem heart disease Mother Family history of Alzheimer's disease Social History marital status: number of children: 1 household members: none lives independently: Yes caregiver/support person: No housing: apartment pets and animals: No education level: college occupational status: other current occupational exposures/hazards: No 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 Well-developed patient, in mild distress. GCS 14 (confused) HEAD: Atraumatic. Normocephalic. EYES: Pupils equal round and reactive. Extraocular motions intact. No scleral icterus. No injection or drainage. ENT: Nose without bleeding, purulent drainage. Throat without erythema, tonsillar hypertrophy or exudate. Airway patent. NECK: Trachea midline. Non tender CARDIOVASCULAR: Regular rate and rhythm without murmurs, gallops, or rubs. RESPIRATORY: Clear to auscultation. Breath sounds equal bilaterally. No wheezes, rales, or rhonchi. GASTROINTESTINAL: Abdomen soft, non-tender, nondistended. EXTREMITIES: No edema or joint tenderness. BACK: Nontender without deformity or crepitance. No flank tenderness. NEURO: AOx3. SKIN: No rash or erythema of visible areas Initial Vital Signs Initial Vital Signs: Vital Signs Temperature 98.4 F 10/18/22 16:15 Pulse Rate 89 10/18/22 16:15 Respiratory Rate 18 10/18/22 16:15 Blood Pressure 186/93 H 10/18/22 16:15 Pulse Oximetry 97 10/18/22 16:15 Oxygen Delivery Method Room Air 10/18/22 16:15 Scores NIH Stroke Scale Level of Conciousness: Alert, keenly responsive Ask month/age: Answers both questions correctly. Open/close eyes, close hand: Performs both tasks correctly Best gaze horizontal: Normal Visual jack: No visual loss Facial palsy: Partial paralysis, total or near total paralysis of lower face (Patient states this is normal for him due to prior surgery) Left arm drift: No drift for full 10 sec Right arm drift: No drift for full 10 sec Left leg drift: No drift for full 5 sec Right leg drift: No drift for full 5 sec Limb ataxia: Absent Sensory on face/arms/legs: Normal, no sensory loss Best language: No aphasia, normal Dysarthria: Mild to mod,some slurring Extinction or inattention: No abnormality Total NIH Stroke scale score: 3 Course Orders Ordered: ED Orders 10/18/22 14:05 COVID19 -Nasal RAPID Stat 10/18/22 16:05 CT Stroke Stat Urinalysis and Microscopic Stat Urine Drug Screen, Rapid Stat EKG-12 Lead Stat 10/18/22 16:06 CT angio head and neck Stat 10/18/22 16:10 Complete Blood Count AUTO DIFF Stat Comprehensive Metabolic Panel Stat Ethanol (ETOH) Stat PTT Partial Thromboplastin Julian Stat Prothrombin Time INR Stat Troponin & CK Cardiac Panel Stat Reevaluation(s) Reevaluation #1: Patient has significant improvement in his NIH stroke scale upon return from imaging. He is now articulating at what he states is his baseline. He has no measurable weakness or ataxia. He states he had a surgery years ago in the left side of his face and typically his son as the only person that can understand him as a consequence of the slurring of words associated with this Time: 16:37 Vital Signs Vital signs: Vital Signs - 8 hr 10/18/22 16:15 10/18/22 16:22 10/18/22 16:25 Temperature 98.4 F Pulse Rate 89 63 56 L Respiratory Rate 18 13 Blood Pressure 186/93 H Pulse Oximetry 97 97 98 Oxygen Delivery Method Room Air 10/18/22 16:25 10/18/22 16:30 10/18/22 17:00 Temperature Pulse Rate 53 L 59 L Respiratory Rate 12 11 L Blood Pressure 221/99 H Pulse Oximetry 97 99 Oxygen Delivery Method 10/18/22 17:01 10/18/22 17:01 Temperature Pulse Rate 52 L Respiratory Rate 12 Blood Pressure 180/79 H Pulse Oximetry 98 Oxygen Delivery Method MDM - Neuro Symptoms/Deficit Lab Data 10/18/22 16:10 10/18/22 16:10 Labs: Lab Results 10/18/22 10/18/22 10/18/22 Range/Units 14:05 16:10 16:10 WBC 7.1 (4.5-11.0) X10^3/uL RBC 5.17 (4.5-5.9) X10^6/uL Hgb 12.3 L (13.5-17.5) g/dL Hct 39.1 L (41-53) % MCV 75.6 L (80-100) fL MCH 23.9 L (26-34) PG MCHC 31.5 (30-36) % RDW 15.3 H (11.6-14.8) % Plt Count 294 (150-400) X10^3/uL Neut % (Auto) 71.1 (50-75) % Lymph % (Auto) 14.8 L (25-40) % [place] % (Auto) 8.8 (3-14) % Eos % (Auto) 4.0 (2-4) % Baso % (Auto) 1.3 (0-2) % Neut # (Auto) 5000 (8828-5508) /uL Lymph # (Auto) 1100 (6483-4021) /uL [place] # (Auto) 600 (0-900) /uL Eos # (Auto) 300 (0-450) /uL Baso # (Auto) 100 (0-100) /uL PT 12.3 (10.1-12.7) SECONDS INR 1.1 (0.9-1.3) APTT 32 (26-36) SECONDS Sodium (137-145) mmol/L Potassium (3.4-5.1) mmol/L Chloride (98-107) mmol/L Carbon Dioxide (22-32) mmol/L BUN (9-20) mg/dL Creatinine (0.66-1.25) mg/dL Estimated GFR (>60) mL/min BUN/Creatinine Ratio (6-22) Glucose (80-110) mg/dL Calcium (8.4-10.2) mg/dL Total Bilirubin (0.2-1.3) mg/dL AST (17-59) IU/L ALT (<50) IU/L Alkaline Phosphatase (38-126) U/L Total Creatine Kinase (55-170) U/L CK-MB (CK-2) CK-MB (CK-2) Rel Index Troponin I (0.01-0.034) ng/mL Total Protein (6.3-8.2) g/dL Albumin (3.5-5.0) g/dL Globulin (1.7-4.1) g/dL Albumin/Globulin Ratio (1.0-2.8) Ethyl Alcohol ( - 10) mg/dL SARS-CoV-2 (PCR) Negative (Negative) 10/18/22 Range/Units 16:10 WBC (4.5-11.0) X10^3/uL RBC (4.5-5.9) X10^6/uL Hgb (13.5-17.5) g/dL Hct (41-53) % MCV (80-100) fL MCH (26-34) PG MCHC (30-36) % RDW (11.6-14.8) % Plt Count (150-400) X10^3/uL Neut % (Auto) (50-75) % Lymph % (Auto) (25-40) % [place] % (Auto) (3-14) % Eos % (Auto) (2-4) % Baso % (Auto) (0-2) % Neut # (Auto) (6593-3139) /uL Lymph # (Auto) (0219-2765) /uL [place] # (Auto) (0-900) /uL Eos # (Auto) (0-450) /uL Baso # (Auto) (0-100) /uL PT (10.1-12.7) SECONDS INR (0.9-1.3) APTT (26-36) SECONDS Sodium 139 (137-145) mmol/L Potassium 4.3 (3.4-5.1) mmol/L Chloride 100 (98-107) mmol/L Carbon Dioxide 33 H (22-32) mmol/L BUN 16 (9-20) mg/dL Creatinine 0.96 (0.66-1.25) mg/dL Estimated GFR > 60 (>60) mL/min BUN/Creatinine Ratio 16.7 (6-22) Glucose 166 H (80-110) mg/dL Calcium 8.7 (8.4-10.2) mg/dL Total Bilirubin 0.7 (0.2-1.3) mg/dL AST 33 (17-59) IU/L ALT 20 (<50) IU/L Alkaline Phosphatase 90 (38-126) U/L Total Creatine Kinase 57 (55-170) U/L CK-MB (CK-2) TNP CK-MB (CK-2) Rel Index TNP Troponin I 0.015 (0.01-0.034) ng/mL Total Protein 6.8 (6.3-8.2) g/dL Albumin 3.6 (3.5-5.0) g/dL Globulin 3.2 (1.7-4.1) g/dL Albumin/Globulin Ratio 1.1 (1.0-2.8) Ethyl Alcohol < 10 ( - 10) mg/dL SARS-CoV-2 (PCR) (Negative) MDM Narrative Medical decision making narrative: 82-year-old male presents with relatively sudden onset of confusion, difficulty finding words, increased left-sided facial weakness (he had surgery many years ago to the left side of his face which affects his speech but states today his symptoms were much worse) and difficulty walking a straight line, his symptoms lasted less than 1 hour and had returned to baseline soon after obtaining imaging. He does not meet tPA criteria as his symptoms improved. He will require hospitalization for further workup and evaluation Dr. Coelho happy to accept on his service Discharge Plan Departure Patient Disposition: Admitted as Observation Clinical Impression: Transient cerebral ischemia Admit Date/Time: 10/18/22 17:35 Admit Provider: Jadon Coelho
--- NOTE | 2022-10-18 16:06 | DI.CT.S_ITS ---
PROCEDURE: CT ANGIO HEAD AND NECK INDICATIONS: stroke TECHNIQUE: After the administration of intravenous contrast, 1 mm thick sections acquired from the aortic arch through the [place]. Post-contrast 4.5 mm thick sections then re-acquired from the foramen magnum to the vertex. 3-dimensional imzfwok-zqnpowckw-rlhlsknceg (MIP) and/or volume rendering reformats were acquired of the central intracranial vasculature and neck separately. For radiation dose reduction, the following was used: automated exposure control, adjustment of mA and/or kV according to patient size. COMPARISON: [facility], CT, CT STROKE, 10/18/2022, 16:09. FINDINGS: Image quality: Excellent. BRAIN: CSF spaces: Ventricles are normal in size and shape. Basal cisterns are patent. No extra-axial fluid collections. Brain: No midline shift. No intracranial bleeds or masses. [place]-white matter interface appears intact. No suspicious enhancement. Skull and face: Calvarium and facial bones appear intact, without suspicious lesions. Orbits appear normal. Sinuses: Mucosal thickening in the right maxillary sinus. Other sinuses and mastoids are normally aerated. HEAD CT ANGIOGRAPHY: Anterior circulation: Intracranial internal carotid arteries are normal in size and flow. The flow within the paired anterior cerebral arteries is normal and symmetric. The flow within the middle cerebral arteries is normal and symmetric. The anterior communicating artery is seen. No aneurysms are seen. Posterior circulation: Visualized portions of the vertebral arteries demonstrate normal caliber, and join to form a normal appearing basilar artery. Flow within the posterior cerebral arteries is normal and symmetric. No aneurysms are seen. NECK CT ANGIOGRAPHY: Carotid system: The great vessels demonstrate a conventional anatomy as they arise from the aortic arch. The origins of the common carotid arteries appear patent. The common carotid arteries demonstrate normal caliber and courses. The bifurcation regions demonstrate moderate to heavy right and moderate left carotid bulb calcification. The internal carotid arteries demonstrate normal calibers and courses. Posterior circulation: The origins of the vertebral arteries both appear widely patent. The more superior extracranial portions of both vertebral arteries also demonstrate normal courses and calibers. They join to form a normal appearing basilar artery. Soft tissues: Dependently layering moderate right pleural effusion. Partially imaged heavy coronary artery calcification. Mild calcification of the aortic arch. Heterogeneous thyroid gland. There are surgical changes of left hemiglossectomy and left neck dissection. No suspicious soft tissue masses. Bones: Several sclerotic vertebral bodies from C2 through C5 with degenerative endplate changes. No fractures. IMPRESSION: 1. No CT evidence of suspicious enhancing process postcontrast. 2. No acute intracranial arterial occlusion seen. 3. Moderate to heavy bilateral carotid bulb calcification, right worse than left. 4. Incidental note of right pleural effusion and left neck surgical changes. Correlate with status of prior malignancy to determine clinical significance. Any quantitative measurements of stenosis were performed using NASCET criteria. Dictated by: Elissa Yates M.D. on 10/18/2022 at 17:06 Approved by: Elissa Yates M.D. on 10/18/2022 at 17:22
[2022-10-18 16:18] LABS: Add Manual Diff / Slide Review NO; Basophils Absolute Auto 100 /uL (0-100); Basophils Percent Auto 1.3 % (0-2); Eosinophils Absolute Auto 300 /uL (0-450); Hematocrit 39.1 % (41-53); Hemoglobin 12.3 g/dL (13.5-17.5); Lymphocytes Absolute Auto 1100 /uL (1100-4500); Lymphocytes Percent Auto 14.8 % (25-40); Mean Corpuscular HGB Conc 31.5 % (30-36); Mean Corpuscular Hemoglobin 23.9 PG (26-34); Mean Corpuscular Volume 75.6 fL (80-100); Monocytes Absolute Auto 600 /uL (0-900); Monocytes Percent Auto 8.8 % (3-14); Neutrophils Absolute Auto 5000 /uL (1500-7000); Neutrophils Percent Auto 71.1 % (50-75); Platelet Count 294 X10^3/uL (150-400); Red Blood Cell Count 5.17 X10^6/uL (4.5-5.9); Red Cell Distribution Width 15.3 % (11.6-14.8); White Blood Cell Count 7.1 X10^3/uL (4.5-11.0)
[2022-10-18 16:26] LABS: INR 1.1 (0.9-1.3); Prothrombin Time 12.3 SECONDS (10.1-12.7)
[2022-10-18 16:29] LABS: PTT Partial Thromboplastin Tim 32 SECONDS (26-36)
[2022-10-18 16:35] LABS: Alanine Aminotransferase 20 IU/L (<50); Albumin 3.6 g/dL (3.5-5.0); Albumin Globulin Ratio 1.1 (1.0-2.8); Alkaline Phosphatase 90 U/L (38-126); Aspartate Aminotransferase 33 IU/L (17-59); BUN Creatinine Ratio 16.7 (6-22); Bilirubin Total 0.7 mg/dL (0.2-1.3); Blood Urea Nitrogen 16 mg/dL (9-20); Calcium 8.7 mg/dL (8.4-10.2); Carbon Dioxide 33 mmol/L (22-32); Chloride 100 mmol/L (98-107); Creatine Kinase 57 U/L (55-170); Estimated Glomerular Filt Rate > 60 mL/min (>60); Ethanol (ETOH) < 10 mg/dL; Globulin 3.2 g/dL (1.7-4.1); Glucose 166 mg/dL (80-110); HEMOLYSIS < 15 (0-50); Potassium 4.3 mmol/L (3.4-5.1); Sodium 139 mmol/L (137-145); Total Protein 6.8 g/dL (6.3-8.2)
[2022-10-18 16:47] LABS: Troponin I 0.015 ng/mL (0.01-0.034)
[2022-10-18 16:48] LABS: COVID19 -Nasal RAPID Negative (Negative)
--- NOTE | 2022-10-18 17:33 | DI.MRI.S_ITS ---
PROCEDURE: MR HEAD/BRAIN WO CON INDICATIONS: stroke TECHNIQUE: Non-contrast axial T1 spin echo, axial T2 fast spin echo, sagittal and axial FLAIR, coronal T2 fast spin echo, axial gradient echo, axial diffusion and ADC through the brain. COMPARISON: [facility], CT, CT ANGIO HEAD AND NECK, 10/18/2022, 16:09. FINDINGS: Image quality: Excellent. CSF spaces: Ventricles appear symmetric in size and shape. Basal cisterns are patent. No extra-axial fluid collections. Brain: No intracranial bleeds or mass effects. There is cerebral volume loss for age. There are mild periventricular and deep white matter chronic small vessel ischemic changes. Brainstem appears normal. Diffusion-weighted images show a ribbon of acute infarct involving the left post central gyrus and superior parietal lobule, extending to involve deep white matter as well, with very subtle cytotoxic edema noted on the FLAIR images. On the diffusion-weighted sequence, image 67/11, the area of infarcted brain measures approximately 3.9 x 1.4 cm. No additional foci of acute infarct. No chronic ischemic insults. Normal intravascular flow voids are present. Skull and face: Calvarial bone marrow is normal in signal. Orbits are normal. Sinuses: Sinuses and mastoids are clear. IMPRESSION: 1. 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 Dictated by: Clifton Enrique M.D. on 10/19/2022 at 10:52 Approved by: Clifton Enrique M.D. on 10/19/2022 at 11:02
--- NOTE | 2022-10-18 19:08 | PC.NURSE ---
Pt arrives from ED at 1845, settled into room. SBP elevated 195/83, he reports he hasn't taken medications today. He states at home he has difficulty swallowing things he tries and has to spit in the sink. He usually uses applesauce to swallow medications. He refuses to take aspirin upon arriving to unit. He is able to perform neuro assessment with some ataxia. At baseline facial assymetry to L side of face due to surgery. He is oriented to room, call light in reach, telemetry placed on patient (afib rhythm) and he expresses agreement to wait for nursing staff before getting out of bed.
[2022-10-18 20:55] LABS: Appearance Urine UA CLEAR; Bilirubin Urine UA NEGATIVE (NEGATIVE); Color Urine UA YELLOW; Glucose Urine UA NEGATIVE (Negative); Ketones Urine UA NEGATIVE (NEGATIVE); Leukocyte Esterase Urine UA NEGATIVE (NEGATIVE); Nitrite Urine UA NEGATIVE (Negative); Occult Blood Urine UA NEGATIVE (Negative); Protein Urine UA 1+ (Negative); Urobilinogen Urine UA 0.2 E.U./dL (0.2)
[2022-10-18 20:57] LABS: UR Morphine/Opiate cutoff 300 Negative (Negative); Ur Creatinine Normal (Normal); Ur Specific Gravity Normal (Normal); Urine Amphetamines Negative (Negative); Urine Barbiturates Negative (Negative); Urine Benzodiazepines Negative (Negative); Urine Cocaine Negative (Negative); Urine MDMA Negative (Negative); Urine Methadone Negative (Negative); Urine Methamphetamines Negative (Negative); Urine Oxycodone Negative (Negative); Urine Phencyclidine Negative (Negative); Urine Tetrahydrocannabinol Negative (Negative); Urine Tricyclic Antidepressant Negative (Negative); Urine pH Normal (Normal)
[2022-10-18 21:05] LABS: Bacteria Urine None Seen; Culture Indicated Urine Cult Not Indicated; RBC Urine None Seen (0-5/HPF); WBC Urine None Seen (0-5/HPF)
[2022-10-18] MEDS: HYDRALAZINE 20 MG/ML VIAL 5 MG IV (21:18)
[2022-10-19 05:19] VITALS: BP 142/68; PULSE 78; RESP 16; TEMP 36.6; O2SAT 98
[2022-10-19 08:00] VITALS: BP 153/65; PULSE 79; RESP 16; TEMP 38.1; O2SAT 98
[2022-10-19 08:30] VITALS: TEMP 36.5
--- NOTE | 2022-10-19 08:30 | DI.US.S_ITS ---
PROCEDURE: US CAROTID DOPPLER BI INDICATIONS: TIA/CVA TECHNIQUE: Color and pulse Doppler interrogation was performed of both carotid systems, with image documentation and velocity measurements. COMPARISON: None. FINDINGS: Stenosis calculations are based on SRU (Society of Radiologists in Ultrasound) criteria. Right side: Brachial blood pressure: 139/62 mm Hg. Common carotid artery peak systolic velocity: 111.1 cm/sec. Internal carotid artery peak systolic velocity: 101.8 cm/sec. Internal carotid artery end diastolic velocity: 23.7 cm/sec. External carotid artery peak systolic velocity: 158.4 cm/sec. ICA/CCA peak systolic ratio: 0.9 . [place] scale imaging description: Mild atheromatous plaque is present at the carotid bifurcation. Percent internal carotid artery stenosis: Less than 50% stenosis. Vertebral artery: Flow direction is antegrade. Left side: Brachial blood pressure: 150/66 mm Hg. Common carotid artery peak systolic velocity: 78.2 cm/sec. Internal carotid artery peak systolic velocity: 93.0 cm/sec. Internal carotid artery end diastolic velocity: 21.3 cm/sec. External carotid artery peak systolic velocity: Occluded ICA/CCA peak systolic ratio: 1.2 . [place] scale imaging description: Atheromatous plaque is present at the carotid bifurcation. Percent internal carotid artery stenosis: Less than 50% stenosis. Vertebral artery: Flow direction is antegrade. IMPRESSION: 1. Less than 50% stenosis of the bilateral internal carotid arteries. 2. Occluded left ECA. Dictated by: Magnolia Rodríguez M.D. on 10/19/2022 at 10:09 Approved by: Magnolia Rodrígeuz M.D. on 10/19/2022 at 10:19
--- NOTE | 2022-10-19 09:43 | DI.ECHO.S_ITS ---
[facility] +---------+ [facility] +---------+ : : [address] : : : : [id number] : : : : Phone: [phone] Echocardiogram Report + + :Name: ESTEBAN HARDEN Study Date: 10/20/2022 Height: 70.5 in: :[facility] ReadingLocation: Weight: 170 lb : : Gender: Male BSA: 2.0 m2 : :: 1940 Age: 82 yrs BP: 168/68 mmHg: :Reason For Study: CEREBROVASCULAR ACCIDENT : :Ordering Physician: ANAND, : :DAVID Performed By: JOJO LARIOS : :Referring: DAVID MICHEL : + + Interpretation Summary 1) Normal left ventricular size and thickness with mildly reduced systolic function (EF 45-50%). 2) Basal to mid inferolateral wall and basal inferior wall are akinetic. Basal to mid anterolateral are hypokinetic. 3) Normal right venricular size and function. 4) Injection of contrast documented no interatrial shunt. 5) No prior Echo available for comparison. Procedure: A two-dimensional transthoracic echocardiogram with color flow and Doppler was performed. The study quality was technically adequate. There is no prior echocardiogram noted for this patient. A saline contrast injection was performed to assess for cardiac shunting. The patient was in a bradycardic rhythm during the exam. The heart rate ranged between 34-61 bpm during the study. Left Ventricle: The left ventricle is normal in size. There is normal left ventricular wall thickness. Left ventricular systolic function is mildly reduced. The ejection fraction is estimated to be 45-50%. Basal to mid inferolateral wall and basal inferior wall are akinetic. Basal to mid anterolateral are hypokinetic. Right Ventricle: The right ventricle is normal in size and function. Atria: The left atrium is moderately dilated. The right atrium is mildly dilated. Injection of contrast documented no interatrial shunt. Mitral Valve: The mitral valve leaflets appear mildly thickened, but open well. There is mild mitral annular calcification. There is mild mitral regurgitation. Aortic Valve: The aortic valve is trileaflet. The aortic valve is moderately calcified. There is no aortic valve stenosis. No aortic regurgitation is present. Tricuspid Valve: The tricuspid valve is normal in structure and function. There is mild tricuspid regurgitation. The right ventricular systolic pressure is estimated to be at least 30 mmHg based on an estimated right atrial pressure of 3 mm Hg. Pulmonic Valve: The pulmonic valve leaflets are thin and pliable; valve motion is normal. There is no pulmonic valvular regurgitation. Great Vessels: The aortic root is normal size. The ascending aorta is normal in size. The IVC is of normal diameter and collapses greater than 50% with a sniff. This suggests a low right atrial pressure of 3 mm Hg. MMode/2D Measurements & Calculations LVIDd: 5.3 cm LVOT diam: 2.0 cm LVIDs: 4.4 cm Ao root diam: 3.4 cm FS: 17.4 % asc Aorta Diam: 2.7 cm IVSd: 1.0 cm LVPWd: 0.91 cm LV del castillo. diameter/BSA (cm/m^2): 2.7 LV sys. diameter/BSA (cm/m^2): 2.2 LA A2 area: 19.5 cm2 RA long axis: 5.9 cm LA A4 area: 23.8 cm2 RA area: 19.1 cm2 LA length (vol): 6.0 cm RA vol: 52.9 ml LA vol: 65.3 ml RA : 27.0 ml/m2 LA vol index: 33.4 ml/m2 TAPSE: 1.3 cm Doppler Measurements & Calculations Ao V2 max: 168.4 cm/sec LVOT Max Michel: 73.8 cm/sec Ao V2 mean: 115.9 cm/sec LV V1 max P.2 mmHg Ao max P.3 mmHg LV V1 VTI: 18.1 cm Ao mean P.8 mmHg TOSHA(I,D): 1.3 cm2 Ao V2 VTI: 42.8 cm TOSHA(V,D): 1.3 cm2 sev ratio: 0.42 TOSHA indexed to BSA (cm^2/m^2): 0.66 MV E max michel: 124.9 cm/sec TR max michel: 258.6 cm/sec MV A max michel: 67.9 cm/sec TR max P.8 mmHg MV E/A: 1.8 PA V2 max: 91.5 cm/sec Med Peak E' Michel: 5.4 cm/sec PA V2 mean: 60.2 cm/sec E/E' med: 23.3 PA mean P.6 mmHg Lat Peak E' Michel: 8.5 cm/sec PA pr(Accel): 22.5 mmHg E/E' lat: 14.7 E/e' average: 19.0 MV dec time: 0.16 sec SV(LVOT): 55.0 ml Reading Physician:04:48 PM
--- NOTE | 2022-10-19 09:43 | P.HP_ITS ---
History of Present Illness History of Present Illness Date Patient Seen: 10/19/22 Chief complaint: It's like I can't think, Trouble concentrating Narrative: Pt is an 82yo man with depression, HTN, CAD, Type 2 DM, anemia, and hx of oral cancer who presented with confusion, upper extremity weakness, and difficulty speaking. The pt reports that yesterday around 4pm he was at [employer] attempting to purchase some lottery tickets, and had a difficult time communicating his desires. He also felt more confused than usual. He couldn't find his words, and was slurring them. He then went to drive home, and it took him much longer to buckle his seatbelt than usual due to weakness in his hands. He then came to the ED for evaluation. The ED physician reports near resolution of his symp toms, however the pt this morning states that he normally speaks much more clearly than he is, and does not have this hard a time finding words. It is indeed quite challenging to communicate with the patient. He states that the arm weakness has resolved. He denies any associated chest pain, SOB, LE weakness, or facial droop. His facial asymmetry is baseline after removal of a tumor more than 10 years ago. [facility] Medical History (Updated 10/18/22 @ 17:14 by Lemuel Nava DO) Anemia Anxiety Cholelithiasis Coronary artery disease Essential hypertension Hyperlipidemia Malignant neoplasm of head, 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) Mixed hyperlipidemia (09/22/15) Persistent depressive disorder Recurrent major depressive disorder, in partial remission Skin cancer Type 2 diabetes mellitus with hyperglycemia (09/22/15) Type 2 diabetes mellitus without complication Surgical History History of radical neck surgery (~2011) Status post coronary artery bypass graft (~2005) Family History Father Fam hx-ischem heart disease Mother Family history of Alzheimer's disease Social History marital status: number of children: 1 household members: none lives independently: Yes caregiver/support person: No housing: apartment pets and animals: No education level: college occupational status: other current occupational exposures/hazards: No 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: [employer] travel history: over 6 months ago leisure activities: reading and other Smoking Status: Never smoker Tobacco: How many years used: 0 quit status: quit date established second hand exposure: Yes alcohol intake: current substance use type: does not use Meds Home Medications and Allergies Home Medications Medication Instructions Recorded Confirmed Type [place] 5/16 Inch 0 item ##100 06/13/17 07/25/22 Rx Syringes: 1cc U-100 Insulin syr ##200 06/13/17 07/25/22 Rx Syringe 25g x 1 blood sugar diagnostic (Blood #250 ea 03/08/20 07/25/22 Rx Glucose Test strips) atorvastatin 40 mg tablet (Lipitor) 40 mg PO Q DAY #90 tabs 09/28/21 07/25/22 Rx metoprolol succinate 25 mg 25 mg PO DAILY #90 tabs 09/28/21 07/25/22 Rx tablet,extended release 24 hr pantoprazole 40 mg tablet,delayed 40 mg PO QDAY #90 tabs 09/28/21 07/25/22 Rx release (Protonix) cholecalciferol (vitamin D3) 50 50 mcg PO DAILY 12/01/21 07/25/22 History mcg (2,000 unit) capsule ferrous sulfate 325 mg (65 mg 650 mg PO DAILY 12/01/21 07/25/22 History iron) tablet (Feosol) fluoxetine 20 mg capsule 20 mg PO QDAY #90 caps 03/16/22 07/25/22 Rx insulin aspart U-100 100 unit/mL 1 - 12 unit (0.01 - 0.12 mL) 06/15/22 07/25/22 Rx (3 mL) subcutaneous pen (Novolog SUBCUT QACHS PRN hyperglycemia #30 FlexPen U-100 Insulin aspart) mL insulin glargine 100 unit/mL (3 45 unit (0.45 mL) SUBCUT DAILY #75 06/15/22 07/25/22 Rx mL) subcutaneous pen (Lantus mL Solostar U-100 Insulin) Allergies Allergy/AdvReac Type Severity Reaction Status Date / Time amoxicillin [From Augmentin] AdvReac Intermediate DIARRHEA Verified 07/25/22 18:59 cephalexin AdvReac Intermediate DIARRHEA Verified 07/25/22 18:59 clavulanic acid AdvReac Intermediate DIARRHEA Verified 07/25/22 18:59 [From Augmentin] metformin AdvReac Intermediate HEADACHE Verified 07/25/22 18:59 Exam Vital Signs (past 8 hours): - 10/19/22 05:19 10/19/22 08:00 Temperature 97.9 F 100.6 F H Pulse Rate 78 79 Respiratory Rate 16 16 Blood Pressure 142/68 H 153/65 H Pulse Oximetry 98 98 Oxygen Flow Rate 0 Oxygen Delivery Method Room Air Oxygen Flow Rate 0 Narrative Exam Narrative: GEN - alert, cooperative and no distress HEENT - normocephalic and atraumatic, sclera white, moist mucus membranes NECK - FROM, no adenopathy, no JVD HEART - RRR, S1, S2 normal, no S3 or S4, grade 3/6 systolic murmur LUNGS - symmetric chest rise, no accessory muscles, clear to auscultation bilaterally ABD - flat, nondistended, normal bowel sounds, soft, nontender and no hepatomegaly, splenomegaly or masses EXT - no cyanosis, clubbing or edema SKIN - no rashes or suspicious lesions NEURO - alert and and oriented to person, place and situation, Muscle strength is 5/5 UE and LE, sensation intact UE and LE, CN II-XII intact, difficulty with understanding a majority of speech with slurring of words and significant word finding, did not understand all directions Objective Labs 10/18/22 16:10 10/18/22 16:10 Labs: Laboratory Results - last 24 hr 10/18/22 10/18/22 10/18/22 14:05 16:10 16:10 WBC 7.1 RBC 5.17 Hgb 12.3 L Hct 39.1 L MCV 75.6 L MCH 23.9 L MCHC 31.5 RDW 15.3 H Plt Count 294 Neut % (Auto) 71.1 Lymph % (Auto) 14.8 L Dukes % (Auto) 8.8 Eos % (Auto) 4.0 Baso % (Auto) 1.3 Neut # (Auto) 5000 Lymph # (Auto) 1100 Dukes # (Auto) 600 Eos # (Auto) 300 Baso # (Auto) 100 PT 12.3 INR 1.1 APTT 32 Sodium Potassium Chloride Carbon Dioxide BUN Creatinine Estimated GFR BUN/Creatinine Ratio Glucose Calcium Total Bilirubin AST ALT Alkaline Phosphatase Total Creatine Kinase CK-MB (CK-2) CK-MB (CK-2) Rel Index Troponin I Total Protein Albumin Globulin Albumin/Globulin Ratio Urine Color Urine Appearance Urine pH Ur Specific [place] Urine Protein Urine Glucose (UA) Urine Ketones Urine Occult Blood Urine Nitrate Urine Bilirubin Urine Urobilinogen Ur Leukocyte Esterase Urine RBC Urine WBC Urine Bacteria Ur Culture Indicated? U Opiates 300ng/mL cut Ur Oxycodone Screen Urine Methadone Screen Ur Barbiturates Screen U Tricyclic Antidepress Ur Phencyclidine Scrn Ur Amphetamines Screen U Methamphetamines Scrn Ur MDMA Scrn (Ecstasy) U Benzodiazepines Scrn Urine Cocaine Screen U Marijuana (THC) Screen Ethyl Alcohol SARS-CoV-2 (PCR) Negative 10/18/22 10/18/22 10/18/22 16:10 20:20 20:20 WBC RBC Hgb Hct MCV MCH MCHC RDW Plt Count Neut % (Auto) Lymph % (Auto) Dukes % (Auto) Eos % (Auto) Baso % (Auto) Neut # (Auto) Lymph # (Auto) Dukes # (Auto) Eos # (Auto) Baso # (Auto) PT INR APTT Sodium 139 Potassium 4.3 Chloride 100 Carbon Dioxide 33 H BUN 16 Creatinine 0.96 Estimated GFR > 60 BUN/Creatinine Ratio 16.7 Glucose 166 H Calcium 8.7 Total Bilirubin 0.7 AST 33 ALT 20 Alkaline Phosphatase 90 Total Creatine Kinase 57 CK-MB (CK-2) TNP CK-MB (CK-2) Rel Index TNP Troponin I 0.015 Total Protein 6.8 Albumin 3.6 Globulin 3.2 Albumin/Globulin Ratio 1.1 Urine Color Yellow Urine Appearance Clear Urine pH 6.0 Ur Specific [place] 1.010 Urine Protein 1+ H Urine Glucose (UA) Negative Urine Ketones Negative Urine Occult Blood Negative Urine Nitrate Negative Urine Bilirubin Negative Urine Urobilinogen 0.2 Ur Leukocyte Esterase Negative Urine RBC None seen Urine WBC None seen Urine Bacteria None seen Ur Culture Indicated? Cult not indicated U Opiates 300ng/mL cut Negative Ur Oxycodone Screen Negative Urine Methadone Screen Negative Ur Barbiturates Screen Negative U Tricyclic Antidepress Negative Ur Phencyclidine Scrn Negative Ur Amphetamines Screen Negative U Methamphetamines Scrn Negative Ur MDMA Scrn (Ecstasy) Negative U Benzodiazepines Scrn Negative Urine Cocaine Screen Negative U Marijuana (THC) Screen Negative Ethyl Alcohol < 10 SARS-CoV-2 (PCR) Assessment & Plan Assessment & Plan narrative: Pt is an 82yo man with depression, HTN, CAD, Type 2 DM, anemia, and hx of oral cancer who presented with confusion, upper extremity weakness, and difficulty speaking. Pt with significant receptive and expressive aphasia that is persistent, most consistent with CVA. 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 - MRI brain today - Echo ordered - Carotid dopplers ordered due to narrowing noted on CT - Speech therapy consulted. Pt NPO until evaluation. - Start full dose Aspirin - On statin - PT/OT consulted 2) DM Type 2: Normally with excellent control. Last A1C - Hold Lantus until on diet, then can restart at 45 units daily - Sliding scale coverage 3) Chronic anemia: Stable - Continue daily iron supplement 4) HTN and CAD: BP in acceptable range. Allow for permissive hypertension. - Continue home Metoprolol, Statin 5) Malnutrition: Significant drop in weight recently with BMI 15 - Nutrition consulted 6) Depression: - Continue home Fluoxetine FEN: NPO until speech eval DVT ppx: Lovenox Code: Full for now as pt was unable to communicate this well, and no DPOA assigned Dispo: Pending above work-up, stability. Pt would likely benefit from SNF rehab, however unlikely to be agreeable to this. Will continue to work with him on d/c options.
--- NOTE | 2022-10-19 10:54 | CM.DANOTE ---
Addendum entered by ALIVIA Zapata 10/19/22 13:06: ADD: Per Portable Track Line Marker, ST spent about an hour with pt and very concerned with his swallow and recommending pureed and NPO for meds and recommend barium swallow. Pt's BMI higher than initially thought but still some malnutrition. Pt wanting to d/c and MD trying to determine if Barium Swallow could happen outpt quickly or if pt should remain at the hospital for ongoing workup. BF Original Note: Patient is an 82 yo male who was admitted on 10/18/22 for CVA vs TIA r/o. Pt has [facility] for insurance and his PCP is Dr. Ryan Rodriguez. EMR was reviewed. Per MD, pt to have MRI and ST eval and automotive center manager towards determining any medical needs and r/o CVA. Pt with hx of facial surgery for cancer which typically affects his speech at baseline. ST ordered and pending. SW met bedside with pt and explained role and pt confirms he lives in [place] alone in the apartments across from the hospital and pt drives and is independent with ADL's at baseline. Pt denies any formal DPOA and states he has no local family and not really any local close friends. Pt difficult to understand at times and pt frustrated when he cannot communicate how he wants, but pleasant and cooperative. Pt does not anticipate any needs at d/c and preference is home when stable. Pt's vehicle is in the parking lot. Plan: SW to follow for automotive center manager and ST eval and recommendations towards determining if pt safe for home and r/o HH and any further identified discharge planning needs pending MRI results. ALIVIA Zapata Discharge Planning/Care Management CM Discharge Assessment Start: 10/19/22 10:52 Freq: Status: Active Protocol: Document 10/19/22 10:53 BF (Rec: 10/19/22 10:54 [id number]) Discharge Planning Assessment Assigned Operating Room Coordinator ALIVIA Parekh DPOA/Assigned Designee Name none Advance Directives? No Advance Directives on File No History Provided By Patient,Medical Record Has Patient been admitted in last 30 No days? Prior Living Arrangements Apartment/Condo Household Members none Type of transporation used prior to Drives own vehicle admit Independent with ADL's Yes Is patient alert and oriented? Yes Caregiver for Another No DME Already Rented / Owned Cane Comment Pending ST conyal and recommendations, r/o HH Barriers to Discharge No Discharge Plan Home with Home Health Transportation Arrangement Pt has own vehicle in the parking lot Additional Comment Pending ST ramila and recommendations Whiteboard Updated in Patient Room with Yes name and ext. # of Operating Room Coordinator Review Status In Process Please Provide Date Initial DC 10/19/22 Assessment Was Performed Next Review Type Continued Stay Review
[2022-10-19] MEDS: FERROUS SULFATE 325 MG TABLET 650 MG PO (11:35)
[2022-10-19] MEDS: FLUoxetine 20 MG CAPSULE PO (11:35)
[2022-10-19] MEDS: METOPROLOL ER 25 MG TABLET PO (11:36)
[2022-10-19] MEDS: PANTOPRAZOLE DR 40 MG TABLET PO (11:36)
[2022-10-19] MEDS: ENOXAPARIN 40 MG/0.4 ML SYRINGE SUBCUT (11:37)
[2022-10-19] MEDS: ATORVASTATIN 20 MG TABLET 40 MG PO (11:38)
[2022-10-19] MEDS: INSULIN GLARGINE 100 UNIT/ML 3ML PEN 45 UNIT SUBCUT (11:40)
[2022-10-19 12:15] VITALS: BP 154/76; PULSE 83; RESP 16; TEMP 37.3; O2SAT 100
[2022-10-19 12:17] VITALS: BMI 22.6
--- NOTE | 2022-10-19 13:04 | ST.IPIE ---
Visit Care Team Role Provider Type Lemuel Nava DO Emergency Provider Physician Referring Provider Specialty: Emergency Medicine Address: [address] [place] [address], [id number] Email: [email or web address] Ryan Rodriguez MD Attending Provider Physician Primary Care Provider Specialty: Internal Medicine Address: [address] [place] [address], [address], [place], [address] Email: 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) Mixed hyperlipidemia (Medical 09/22/15) Persistent depressive disorder (Medical) Recurrent major depressive disorder, in partial remission (Medical) Skin cancer (Medical) Squamous neck, S/P radical neck dissection Type 2 diabetes mellitus with hyperglycemia (Medical 09/22/15) Type 2 diabetes mellitus without complication (Medical) ST IP Initial Evaluation Report [employer] Adult Cognitive Linguistic Eval Start: 10/19/22 12:44 Freq: Status: Active Protocol: Document 10/19/22 12:44 CG (Rec: 10/19/22 12:49 CG [id number]) Adult Cognitive Linguistic Evaluation Session Time Visit Start Time 01:03 Visit Stop Time 12:15 Total Visit Minutes [address] Coelho Reason for Referral dysphagia, aphasia Setting Assessment Location Acute Care Visit Type Note Type Initial evaluation Patient Information Identification Type Name Patient History Per ER documentation: 82-year -old male nonsmoker with history of hypertension and diabetes presents under his own care with a chief complaint of 30 minutes of confusion, difficulty finding words and trouble walking straight line. He states that he was in his normal state of health prior to this and denies any trauma or fever. He denies blurred vision. He denies any numbness, tingling or weakness of his extremities . He has no chest pain, shortness of breath or palpitations. He denies any abdominal pain, nausea, vomiting or diarrhea. He is had no recent trauma or injury . He is activated as a code stroke soon after arrival. Since admission, his symptoms have mostly resolved. 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 Pt stated to nurse that he usually uses applesauce to take his medications. He has a history of difficulty with swallowing foods and says he sometimes has to spit them out in the sink. 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 MRI shows left MCA infarct. Hearing Hearing Level Impaired Auditory History Unknown Previous Therapy Previous Speech-Language Therapy No: Pt states previous dysphagia therapy History of Therapy Pt states he was previously evaluated by [employer] for dysphagia . Unable to obtain detailed history due to severe expressive aphasia. Assessment Oral Motor Examination Completed Yes Results Severe motor planning deficits on DDK task. Lingual weakness bilaterally, predominantly L sided. Informal Assessment Receptive Language Normal No Receptive Language Impairment(s) Comprehension of simple yes/no questions,Comprehension of complex yes/no questions, Following 1-step commands, Following 2-step commands, Following 3-step commands, Comprehension of conversation Expressive Language Normal No Expressive Language Impairment(s) Imitation,Confrontation naming ,Expression of basic wants/ needs,Expression of complex thoughts/ideas Pragmatic Language Normal Yes Speech Normal No Speech Impairment(s) Imprecise articulation Cognition Normal No: Unclear due to linguistic deficits Cognitive Impairment(s) Orientation,Problem solving, Reasoning Findings/Results Language Function Moderately-severely impaired Cognitive Function Moderately impaired Findings Pt presents with severe expressive aphasia characterized by phonemic paraphasias and neologisms. Receptive language also appears impaired, with pt understanding one-step directions in approximately 50 % of opportunities and answering yes/no questions appropriately in approximately 70% of opportunities. Language abilities are improved by offering binary choices and closed questions. Cognitive Communication Deficits Self-awareness of Cognitive- Situational awareness ( Communication Deficits recognition of problem in context;in real time) Impact on Functioning Activity Limits/Particip.Rest. Mod: General Tasks and Demands Household Tasks Sev: Interpersonal Interactions Education Employment Community Safety Risks Sev: Being Left Alone at Home Reacting to Emergency Managing Medication Traveling Alone in Community Prognosis Prognosis Guarded Based on Cognitive status,Duration of symptoms/severity Plan of Care Speech-Language Treatment Yes Patient/Caregiver Education Described results of evaluation,Patient requires further education/training Short Term Goals Pt will answer yes/no questions with 90% accuracy in order to communicate basic wants and needs. Pt will utilize communication board in order to communicate needs in the hospital setting. Prison Goals Pt will communicate simple and complex wants/needs/thoughts/ ideas with minimal to no impairment. Discharge Recommendations intermediate facility [employer] Clinical Swallow Evaluation Start: 10/19/22 10:49 Freq: Status: Active Protocol: Document 10/19/22 12:44 CG (Rec: 10/19/22 12:49 CG [id number]) Clinical Swallow Evaluation Session Time Visit Start Time 01:03 Visit Stop Time 12:15 Total Visit Minutes [address] Coelho Reason for Referral dysphagia, aphasia Setting Assessment Location Acute Care Visit Type Note Type Initial evaluation Next Note Type Next Note Type Treatment Note Patient Information Identification Type Name History Per ER documentation: 82-year -old male nonsmoker with history of hypertension and diabetes presents under his own care with a chief complaint of 30 minutes of confusion, difficulty finding words and trouble walking straight line. He states that he was in his normal state of health prior to this and denies any trauma or fever. He denies blurred vision. He denies any numbness, tingling or weakness of his extremities . He has no chest pain, shortness of breath or palpitations. He denies any abdominal pain, nausea, vomiting or diarrhea. He is had no recent trauma or injury . He is activated as a code stroke soon after arrival. Since admission, his symptoms have mostly resolved. 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 Pt stated to nurse that he usually uses applesauce to take his medications. He has a history of difficulty with swallowing foods and says he sometimes has to spit them out in the sink. 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 MRI shows left MCA infarct. Subjective Observations Pt was seated partially reclined in bed upon ST entry to the room. He presented with severe expressive and moderate receptive aphasia throughout conversation, characterized by frequent neologisms. Aphasia currently has a severe impact on his ability to be understood and a moderate impact on his ability to understand language . Reported by Patient Other Symptoms Choking,Coughing,Difficulty swallowing liquids,Difficulty swallowing pills,Difficulty swallowing solids,Weight loss Comment Pt has recently experienced severe weight loss. He reports that he frequently chews his food but then has to spit it into the sink. He stated that he usually eats whatever he feels like eating even though he has trouble swallowing, but usually ends up spitting most of it out. Additionally, he endorses frequent choking on liquids, particularly boluses larger than a teaspoon. However, he reports no recent history of pneumonia. Current Diet Nothing by mouth Baseline Feeding Method Independent in self-feeding Patient Questionnaire No Objective Assessment Mental Status Alert,Responsive,Confused Oral Integrity Thrush Dentition Missing teeth Lip Function Moderate impairment Pucker Reduced range of motion, Reduced strength Tongue Function Moderate impairment Observations of Tongue at Rest Deviates to the right Tongue Protrusion Within normal limits Tongue Lateralization Reduced range of motion, Reduced strength Observations of Jaw at Rest Reduced range of motion Jaw Opening Reduced range of motion Food and Liquid Trials Position During Assessment Slightly reclined Liquids Trialed Ice chips,Thin,Spicer,Honey Solids Trialed Puree Administration Type Tea spoon Oral Impairment Moderately impaired Oral Phase Comments Trials ice chip: Trials ice chip resulted in prolongued mastication time and difficulty with A-P transit. Suspect some premature spillage to the vallecula and/ or pyriforms due to poor lingual coordination. Lip pucker WFL for receiving bolus from teaspooon. Trials thin, nectar, and honey via teaspoon: Suspect some premature spillage to the vallecula and/or pyriforms due to poor lingual coordination. Limited lingual motion. Lip pucker WFL for receiving bolus from teaspooon. Trials puree (applesauce): Prolongued A-P transit. Pharyngeal Impairment Severely impaired Pharyngeal Phase Comments Trials ice chip: Suspect premature spillage. Delayed throat clear after trial. Trials thin via teaspoon: Suspect premature spillage. Immediate throat clear and delayed cough. Wet vocal quality. Highly suspect aspiration/penetration . Trials nectar and honey via teaspoon: Suspect premature spillage. Immediate throat clear and delayed cough. Wet/ gurgly vocal quality. Highly suspect aspiration/penetration . Hiccupping/esophageal sounds following trials. Trials puree (applesauce): Wet /gurgly vocal quality. Hiccuping/esophageal sounds following trials. Suspect pharyngeal residue, though no overt s/sx aspiration. Fatigue/Endurance Endurance WNL Comment Recommend MBS. Strategies Attempted Chin tuck,Head rotation Response/Comments No difference in symptoms with head turn L or head turn R. [place] Swallow Protocol No Findings Swallowing Function Dysphagia unspecified Swallowing Function Comments Severe. Severity of Swallow Impairment Severely impaired Contributing Factors to Swallow Difficulty following Impairment directions,Impaired oral- pharyngeal transport,Delayed swallow initiation,Impaired airway protection,Excessive pharyngeal residue Prognosis Guarded Based on Cognitive status,Duration of symptoms/severity Comment Pt demonstrates limited insights into functional deficits. He states that he wants to go home today, despite [employer] education that he is unsafe to go home independently due to communication deficits and swallowing deficits. Impact on Safety and Functioning Risk for aspiration,Risk for inadequate nutrition/hydration Comments Already has experienced severe weight loss. Recommendations Instrumental Assessment Yes Swallowing Treatment Yes Recommended Solids Puree Recommended Liquids Ice Chips Only Other Recommendations [employer] recommends pt not take medications by mouth, and IV meds were recommended for safety. Pt stated he did not want IV medications and he wanted to go home. [employer] provided education that PO medications are unsafe and put the pt at high risk of choking/aspiration. Pt expressed understanding but stated that he still wanted to take his pills by mouth with applesauce the way he does at home. Discussed recommendations with MD and explained pt refusal of IV medications. Safety Precautions/Swallowing Supervision needed for all Recommendations meals,1 to 1 close supervision ,Feed only when alert,Remain upright (90 degrees) during all oral intake,Upright position at least 30 minutes after meals,Small bites and sips when eating,Check for pocketing Medication Recommendations Not Recommended by Mouth Discharge Recommendations intermediate facility Referrals Recommended Referrals Occupational Therapy,Physical Therapy Education Patient/Caregiver Education Described results of evaluation,Patient requires further education/training Goals Short-term Goals Pt will complete MBSS for objective assessment of swallow function. Diet will be progressed as tolerated based on safety with intake. Long-term Goals Pt will consume least restrictive diet in order to meet nutrition and hydration needs.
--- NOTE | 2022-10-19 13:30 | DIET.CONS ---
Addendum entered by Miguelina Price 10/19/22 14:47: RD agrees with mba intern note below. Original Note: Dietary Consultation Note Admission Date: 10/19/2022 11:00 Assessment: 82 y/o M with history of hypertension and diabetes presents with a chief complaint of confusion, difficulty finding words and trouble walking straight line. RD consulted for weight loss and malnutrition screening.? Reweighed pt using scale. Pt currently weighs 71.4 kg, making his BMI 22.6 (low for age).? Per 07/25/22 EMR weight, pt has 10% of weight in 3 months.? Per notes, pt has difficulty swallowing and has had a moderate decrease in PO intake.? Ht: 177.8 cm Wt: 71.4 kg BMI: 22.6 Last BM: 10/17/22 (10/18/22 18:04) MNA: 8 Aleksandr Score: 19 Diet: 10/19/22 09:43 NPO Diet Diet Modifications: NPO Type: Strict 10/19/22 Dinner Carbohydrate Consistent Diet Diet Modifications: NO LIQUIDS, ICE CHIPS ONLY Carbohydrate level: Medium (3 CHO) Reflex DM orders: No Dysphagia Diet Diet Modifications: ICE CHIPS ONLY. (order will not let me list this) Liquid consistency: Pudding Consistency Food texture: Dysphagia Pureed Labs: RBC 5.17 X10^6/uL (4.5-5.9) 10/18/22 16:10 Hgb 12.3 g/dL (13.5-17.5) L 10/18/22 16:10 Hct 39.1 % (41-53) L 10/18/22 16:10 Creatinine 0.96 mg/dL (0.66-1.25) 10/18/22 16:10 Nutrition Diagnosis: acute severe protein calorie malnutrition r/t difficulty swallowing aeb 10% wt loss in 3 months, BMI 22.6 (low for age), MNA 8 (malnourished) and a moderate decrease in PO intake.? Interventions: awaiting further assessment from speech therapy. EER: 90-110 g protein (1.3-1.5 g/kg per PCM), 2607-6462 kcal (25-30 kcal/kg per BMI) Electronically Signed by: Shanta Churchill 10/19/22 13:30 Clinical Dietitian [address] [place] [address]
[2022-10-19] MEDS: ASPIRIN EC 325 MG TABLET PO (13:49)
--- NOTE | 2022-10-19 14:38 | PT.IIE ---
Surgical History (Last Reviewed 10/18/22 @ 16:08 by Lemuel Nava DO) History of radical neck surgery (~2011) Status post coronary artery bypass graft (~2005) Medical History (Last Reviewed 10/18/22 @ 16:08 by Lemuel Nava DO) Anemia Anxiety Cholelithiasis Coronary artery disease Essential hypertension Hyperlipidemia Malignant neoplasm of head, 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) Mixed hyperlipidemia (09/22/15) Persistent depressive disorder Recurrent major depressive disorder, in partial remission Skin cancer Type 2 diabetes mellitus with hyperglycemia (09/22/15) Type 2 diabetes mellitus without complication Physical Therapy Inpatient Evaluation/Re-Eval M1 PT/OT-IP Prior Functional Status Start: 10/19/22 14:18 Freq: NEEDED Status: Active Protocol: Document 10/19/22 14:15 DCW (Rec: 10/19/22 14:59 DC [id number]) Medical Review Prior Functional Status Medical History Reviewed Yes Communication Communication PLOF appears to have been WNL, pt difficult historian due to receptive/ expressive aphasia Social History Household Members none Living Arrangements Apartment/Condo Number of Stairs To Enter/Railing? Pt reports yes that there are stairs to enter, unable to provide more information that this. Additional Social History Comment Does not appear to have been using any assistive device previously M2 PT-IP Current Condition Start: 10/19/22 14:18 Freq: NEEDED Status: Active Protocol: Document 10/19/22 14:15 DCW (Rec: 10/19/22 14:59 DCW [id number]) Physical Therapy Current Condition Current Condition Evaluation Date 10/19/22 Treatment Diagnosis CVA Onset Date 10/19/22 M3 PT-IP Subjective Start: 10/19/22 14:18 Freq: NEEDED Status: Active Protocol: Document 10/19/22 14:15 DCW (Rec: 10/19/22 14:59 DCW [id number]) Subjective Physical Therapy Visit Type Visit Start Time 14:15 Visit Stop Time 14:38 Total Visit Minutes 23 Notes Pt sitting in recliner eating lunch when PT entered room, just finished up with Occupational Therapy evaluation. After getting pt to understand therapist wanted to get him up and walk, pt was very agreeable to therapy. Number of [employer]ELOPER Visits 0 Physical Therapy Visit Comments Patient Comments Pt both hard of hearing and has receptive/expressive aphasia. Difficult to get more than occasional yes/no answers to questions. Therapy Pain Assessment Pain Present Pain Present Denied Pain M4 PT-IP Mobility and Gait Start: 10/19/22 14:18 Freq: NEEDED Status: Active Protocol: Document 10/19/22 14:15 DCW (Rec: 10/19/22 14:59 DCW [id number]) PT-Transfer Assessment Sit to and From Stand Sit to and from Stand Independent Equipment Transfer Assistive Device Gait Belt Comments Mobility Comments Pt able to stand from recliner , pull up gown, attempted to tighten belt on his pants, as it had come undone. Poor R UE coordination cause pt to require assistance to tighten belt, but was able to maintain static balance throughout ordeal without an assistive device Gait Assessment Gait Gait Assistance Required: Contact Guard Assist Distance (Feet) 180 Assistive Devices Assistive Device Gait Belt Factors Limiting Gait Function Factors Limiting Gait Function Difficulty Following Directions,Poor Balance,Poor Safety Awareness Comments Gait Comments Pt able to ambulate 180' without an assistive device SBA, however decreased to CGA when pt attempts to turn his head or gets distracted by people talking, significant path deviation, lateral LOB Stair Climbing Assessment Evaluation Level of Assist On Stairs Contact Guard Assistance, Minimal Assistance Devices Stair Climbing Assistive Devices Left Railing,Right Railing Technique/Endurance Stair Climbing Direction Ascend and Descend Stair Climbing Technique Step to Step Number of Steps Climbed 3 Query Text: Comments Stair Climbing Comments Pt initially reached for R railing with UE, but completely missed railing with R UE and suffered LOB laterally to the right, required Min Ax1 to maintain balance. After recalibrating how close he was to railing and slowing down movement, pt able to grab B railing and ascended/descended stairs step -to. PT-Balance Assessment Standing Balance and Reactions Static Standing Balance Ability Good Dynamic Standing Balance Ability Fair Device Used None M5 PT-IP Objective Assessments Start: 10/19/22 14:18 Freq: NEEDED Status: Active Protocol: Document 10/19/22 14:15 DCW (Rec: 10/19/22 14:59 DCW [id number]) Orientation Orientation/Cognition Level of Alertness Alert Language Function Ability Expressive Aphasia,Receptive Aphasia Safety Awareness Decreased Safety Awareness Gross Range of Motion Lower Extremity ROM Assessment Within Functional Limits Strength Lower Extremity Strength Assessment Within Functional Limits M7 PT-IP Assessment and Plan Start: 10/19/22 14:18 Freq: NEEDED Status: Active Protocol: Document 10/19/22 14:15 DCW (Rec: 10/19/22 14:59 DCW [id number]) PT Summary Assessment and Plan Potential Rehabilitation Potential Good Status of Condition at Evaluation Unstable Summary Impairments Balance,Coordination,Cognition ,Gait Assessment Summary Pt is fairly independent with straight-forward functional mobility, however more complex tasks almost immediately cause decreased stability and LOB. Pt demonstrates difficulty understanding safety concerns. PLOF difficult to determine due to receptive/expressive aphasia, but pt appears to be relatively impulsive with most activities, LOB when ambulating with head turns or when distracted, also stumbled when reaching for rail with R UE. Unlikely to be safe with AD, or even receptive to use of one due to prior independence and impulsiveness . Pt lives along, and would be unlikely to be safe with return home, would likely greatly benefit from discharge to rehab. Goals Gait Goal Standby Assistance Gait Distance 300 Other Goals No loss of balance with head turns Days to Meet Goals 3 Frequency of Treatment Frequency Of Treatment Once a Day Treatment Plan Physical Therapy Treatment Plan Balance Retraining,Discharge Planning,Neuromuscular Re-ed, Coordination Retraining Recommendations To Nursing Amount of Assist Needed Standby Assistance Discharge Recommendations PT Discharge Recommendations Acute Rehab Transportation Needs at Discharge Private Vehicle
[2022-10-19] MEDS: SODIUM CHLORIDE 0.9% 1,000 ML 75 ML IV (16:00)
--- NOTE | 2022-10-19 16:02 | SLP.IPNOTE ---
Attempted MBS with patient at 15:00 today. Pt was unable to follow directions to safely participate in MBS at this time. Recommend waiting until Saturday to re-attempt MBS to allow time for expressive/receptive aphasia, confusion, and swallowing to improve.
[2022-10-19 17:46] VITALS: BP 127/58; PULSE 79; RESP 16; TEMP 36.6; O2SAT 97
[2022-10-19 22:26] VITALS: BP 137/53; PULSE 61; RESP 15; TEMP 37.2; O2SAT 100
[2022-10-20] VITALS (7 sets, daily range): BP systolic 146–187; BP diastolic 53–69; PULSE 56–69; RESP 15–18; TEMP 35.9–36.9; O2SAT 93–100
[2022-10-20] MEDS: DEXTROSE 50 % IN WATER 25 GM/50 ML SYRINGE IV ×2 (00:56→05:25)
--- NOTE | 2022-10-20 02:16 | PC.NURSE ---
Addendum entered by Reid Marroquin R.N. 10/20/22 05:38: 0500 BG 66, administered D5 per SEP and hung D5 NS at 75 mls/hr per MD. orders. will recheck at one hour. Addendum entered by Reid Marroquin R.N. 10/20/22 03:22: 0300 BG 122, RN notified ribbon cleaner MD Dr Gene Damon of Pt's BG. Dr gave verbal orders for D5 NS @ 75mls/hr if BG below 80 at 0400 BG check, and to continue Q1HR BG checks, if BG >200 to stop IV D5 NS. Original Note: NightShift Pt was upset at start of shift, Pt was very frustrated with the difficulty of speech and communication. Pt was able to communicate with RN that he was scared and angry with his recent medical situation and difficulty with speech. Pt does not believe the doctor came to visit him 10/19/2022 and stated that he wants the Dr to introduce themselves tomorrow 10/20/2022 and take the time to talk with him so he can voice his opinions on his care plan. RN asked if Pt could share information to communicate to the Dr. But Pt refused (paraphrase) no, they need to come talk to me and see me. Pt calmed down and became very cooperative and calm after voicing his frustrations. RN noted the at the 1999 BG check 88 and gave honey for correction BG was rechecked 15 minutes later and BG141. Rechecked again 1 hour later and BG 99 another oral 6 packets of honey was given and tolerated very well by Pt. Pt communicated that he was happy to be able to swallow and taste the honey. BG was checked at 0035 and was found to be 77, RN administered D5 per SEP and rechecked BG 15 minutes after 199 BG. and 1 hour after 198. RN will continue to recheck Q1hour BG starting at 0300. Pt denied any N/V or lightheadedness or feelings of hunger or anxiousness. FIT MODEL notified RN that Pt's HR has been upper 40's low 60's while sleeping.
[2022-10-20] MEDS: DEXTROSE 5%-0.9% NS 1,000 ML 75 ML IV ×2 (05:20→19:46)
--- NOTE | 2022-10-20 09:20 | PT.IPTN ---
Current Diagnoses Cerebral infarction, unspecified (10/19/22) Physical Therapy Treatment Note M2 PT-IP Current Condition Start: 10/19/22 14:18 Freq: NEEDED Status: Active Protocol: Document 10/19/22 14:15 DCW (Rec: 10/19/22 14:59 DCW [id number]) Physical Therapy Current Condition Current Condition Evaluation Date 10/19/22 Treatment Diagnosis CVA Onset Date 10/19/22 M3 PT-IP Subjective Start: 10/19/22 14:18 Freq: NEEDED Status: Active Protocol: Document 10/20/22 09:38 TS (Rec: 10/20/22 09:57 TS [id number]) Subjective Physical Therapy Visit Type Type Treatment Note Visit Start Time 09:20 Visit Stop Time 09:36 Total Visit Minutes 16 Physical Therapy Visit Comments Patient Comments Pt found resting in bed, reports needing to use toilet, agreeable to PT session. M4 PT-IP Mobility and Gait Start: 10/19/22 14:18 Freq: NEEDED Status: Active Protocol: Document 10/20/22 09:38 TS (Rec: 10/20/22 09:57 TS [id number]) PT-Bed Mobility Assessment Supine to Sit Supine to Sit Independent Scooting Scooting to Edge of Bed Independent PT-Transfer Assessment Sit to and From Stand Sit to and from Stand Independent Equipment Transfer Assistive Device Gait Belt Comments Mobility Comments Supine to Ind with use of BUE for uprighting trunk. Sit to stand Ind with no AD, some swaying in stadning. Pt ambulated to toilet SBA ~10' with no AD. He ambulated in hallway ~350' CGA with IV pole , step thru gait with narrow DUNIA, pt requires occasional wall support for balance. Pt performed stairs x6 SBA with BUE handrail assist, no signs of buckling or LOB. Pt was left in bed with call light nearby, bed alarm on. Gait Assessment Gait Gait Assistance Required: Contact Guard Assist Distance (Feet) 350 Assistive Devices Assistive Device Gait Belt Factors Limiting Gait Function Factors Limiting Gait Function Difficulty Following Directions,Poor Balance,Poor Safety Awareness Comments Gait Comments Pt ambulated in hallway ~350' with no AD CGA step thru gait with narrow DUNIA. He requires occasional wall support for balance furniture surfing. Stair Climbing Assessment Evaluation Level of Assist On Stairs Standby Assistance Devices Stair Climbing Assistive Devices Left Railing,Right Railing Technique/Endurance Stair Climbing Direction Ascend and Descend Stair Climbing Technique Step Over Step Number of Steps Climbed 6 Comments Stair Climbing Comments Pt peformed stairs x6 SBA with BUE handrail assist step over step, no LOB. PT-Balance Assessment Sitting Balance and Reactions Static Sitting Balance Ability Normal Dynamic Sitting Balance Ability Good Standing Balance and Reactions Static Standing Balance Ability Good Dynamic Standing Balance Ability Fair Device Used None Comments Other Balance Tests/Deviations/Treatment Pt required occasional wall : assist for balance in hallway. M5 PT-IP Objective Assessments Start: 10/19/22 14:18 Freq: NEEDED Status: Active Protocol: Document 10/19/22 14:15 DCW (Rec: 10/19/22 14:59 DCW [id number]) Orientation Orientation/Cognition Level of Alertness Alert Language Function Ability Expressive Aphasia,Receptive Aphasia Safety Awareness Decreased Safety Awareness Gross Range of Motion Lower Extremity ROM Assessment Within Functional Limits Strength Lower Extremity Strength Assessment Within Functional Limits M7 PT-IP Assessment and Plan Start: 10/19/22 14:18 Freq: NEEDED Status: Active Protocol: Document 10/20/22 09:38 TS (Rec: 10/20/22 09:57 TS [id number]) PT Summary Assessment and Plan Potential Rehabilitation Potential Good Status of Condition at Evaluation Evolving Summary Impairments Balance,Coordination,Cognition ,Gait Assessment Summary Pt continues demonstrate difficulty understanding safety concerns, is slightly impulsive to move when therapist is not ready but does follow single step instructions ~90% of the time. Pt performed bed mobility Ind and sit to stands Ind with no AD. He ambulated to toilet with no AD SBA, washed hands in sink no AD SBA. He ambulated in hallway ~350' CGA with no AD, pt requires occasional wall support with UEs for balance, no LOB. He performed stairs x6 SBA with BUE handrail assist, again no noted buckling or LOB. Pt does live alone and would be unsafe on own at this time. PT would recommend acute rehab for balance and gait training. Therapist spoke with pt about this and stated he would like to return home and does not want rehab. Goals Gait Goal Standby Assistance Gait Distance 300 Other Goals No loss of balance with head turns Days to Meet Goals 3 Frequency of Treatment Frequency Of Treatment Once a Day Treatment Plan Physical Therapy Treatment Plan Balance Retraining,Discharge Planning,Neuromuscular Re-ed, Coordination Retraining Recommendations To Nursing Amount of Assist Needed 1 Person Assist Discharge Recommendations PT Discharge Recommendations Acute Rehab Transportation Needs at Discharge Private Vehicle
[2022-10-20] MEDS: ATORVASTATIN 20 MG TABLET 40 MG PO (09:26)
[2022-10-20] MEDS: FERROUS SULFATE 325 MG TABLET 650 MG PO (09:26)
[2022-10-20] MEDS: FLUoxetine 20 MG CAPSULE PO (09:26)
[2022-10-20] MEDS: PANTOPRAZOLE DR 40 MG TABLET PO (09:30)
[2022-10-20] MEDS: ENOXAPARIN 40 MG/0.4 ML SYRINGE SUBCUT (09:32)
[2022-10-20] MEDS: ASPIRIN EC 325 MG TABLET PO (09:32)
--- NOTE | 2022-10-20 11:22 | ST.IPTN ---
Visit Care Team Role Provider Type Lemuel Nava DO Emergency Provider Physician Referring Provider Address: [address] [place] [address], [id number] Ryan Rodriguez MD Attending Provider Physician Primary Care Provider Address: [address] [place] [address], [address], [place], [address] Jadon Coelho MD Admit Provider Physician Other Providers Address: [address], [place], [address] CONTRACT CLERK Treatment Note CONTRACT CLERK Treatment Note Start: 10/20/22 11:12 Freq: Status: Active Protocol: Document 10/20/22 11:13 MG (Rec: 10/20/22 11:21 MG [id number]) Speech Pathology Treatment Note Session Time Visit Start Time 10:00 Visit Stop Time 10:45 Total Visit Minutes 45 Setting Treatment Setting Acute Care Visit Type Note Type Treatment Note General Information Patient History Per ER documentation: 82-year -old male nonsmoker with history of hypertension and diabetes presents under his own care with a chief complaint of 30 minutes of confusion, difficulty finding words and trouble walking straight line. He states that he was in his normal state of health prior to this and denies any trauma or fever. He denies blurred vision. He denies any numbness, tingling or weakness of his extremities . He has no chest pain, shortness of breath or palpitations. He denies any abdominal pain, nausea, vomiting or diarrhea. He is had no recent trauma or injury . He is activated as a code stroke soon after arrival. Since admission, his symptoms have mostly resolved. 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 Pt stated to nurse that he usually uses applesauce to take his medications. He has a history of difficulty with swallowing foods and says he sometimes has to spit them out in the sink. 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 MRI shows left MCA infarct. Subjective Observations/Patient Presentation Pt found resting in bed. Agreeable for ST to enter and provide therapy. Pt was snacking on applesauce. No overt s/sx of aspiration noted during self-feeding. Of note, the pt adamantly reported he wanted to go home today and wanted to speak with the doctor. While pt did participate in treatment, he reported he would not continue to work if he had to stay inpatient. Objective Short Term Goals Pt will answer yes/no questions with 90% accuracy in order to communicate basic wants and needs. Pt will utilize communication board in order to communicate needs in the hospital setting. Counseling Services Director Goals Pt will communicate simple and complex wants/needs/thoughts/ ideas with minimal to no impairment. Treatment Activities Pt participated in oral motor exercises to increase lip strength and range of motion as well as expressive word finding strategies, communication board use. Confrontation naming 9/10 correct. Yes/No questions 10/ 10 correct. During yes/no activity, the words were presented to the pt and he reported it helped him verbalize them. Pt required ample wait time to communicate and utilizes strategies such as resting and rewording his sentence in order to get his point across to the listener. Per EXPERIMENTAL ROCKETSLED MECHANIC, the pt completed breakfast and did not appear to have difficulties with it. Assessment Patient Response to Treatment Good Rehab Potential Good Impairments Identified Expressive language,Receptive language,Cognitive communication,Speech,Swallow Progress Towards Goals Good Progress Assessment of Overall Progress Improving Assessment of Improvement Pt is very insistent on leaving and perseverated on needing to go home. Would not specify why the clayton to get home and reported, my private life is my private life and yours is yours. Pt reported to this CONTRACT CLERK that he believes staff do not have his best interest in mind. Pt reported he knew he may hurt himself again by going home too soon, but he doesn't care. Pt appears to want to participate in treatment, is motivated to do so, and has shown some progress in skills, but only if he is allowed to leave the hospital. Reviewed with Patient Goals,Progress Being Made,Home Exercise Program Patient/Caregiver Understanding Fair Plan Therapy Recommendations Continue with Current Program
[2022-10-20 12:20] LABS: Add Manual Diff / Slide Review NO; Basophils Absolute Auto 100 /uL (0-100); Basophils Percent Auto 1.4 % (0-2); Eosinophils Absolute Auto 200 /uL (0-450); Eosinophils Percent Auto 3.4 % (2-4); Hematocrit 35.2 % (41-53); Hemoglobin 11.3 g/dL (13.5-17.5); Lymphocytes Absolute Auto 1100 /uL (1100-4500); Lymphocytes Percent Auto 18.4 % (25-40); Mean Corpuscular HGB Conc 32.1 % (30-36); Mean Corpuscular Hemoglobin 24.2 PG (26-34); Mean Corpuscular Volume 75.2 fL (80-100); Monocytes Absolute Auto 600 /uL (0-900); Monocytes Percent Auto 10.6 % (3-14); Neutrophils Absolute Auto 3900 /uL (1500-7000); Neutrophils Percent Auto 66.2 % (50-75); Platelet Count 221 X10^3/uL (150-400); Red Blood Cell Count 4.68 X10^6/uL (4.5-5.9); Red Cell Distribution Width 15.3 % (11.6-14.8); White Blood Cell Count 5.9 X10^3/uL (4.5-11.0)
--- NOTE | 2022-10-20 12:27 | CM.DPC ---
Addendum entered by ALIVIA Zapata 10/20/22 12:57: ADD: ROOSEVELT spoke to MD who feels pt not yet medically stable to discharge today but aware pt is strongly wanting to d/c home and may leave this evening AMA. MD aware pt refusing SNF or Acute Rehab but agreeable to HH. MD recommending pt not safe to drive himself home and his vehicle is in the parking lot and may need taxi home across the street. ROOSEVELT made [facility] referral based on Vendor Calendar and faxed clinicals to review and faxed F2F and HH orders and they will confirm they can accept [employer] insurance and [facility] did confirm they have ST for [facility]. BF Original Note: DCP Cont: Per ST, worked with pt again and he was willing to do some swallow exercises and strengthening but still recommending modified barium swallow which cannot happen this weekend but on Mon and pt currently refusing to stay until Mon. Per PT, feel pt could benefit from Acute Inpt Rehab. SW met bedside with pt and explained role again and discussed recommendation of Acute Inpt Rehab and discussed the benefits and services and shorter length of stay. Pt adamantly refusing anything other than discharge home. SW discussed HH and pt very agreeable to HH RN/PT/ST and reviewed HH Choice list and no preference. Pt stating he plans to discharge back to his apartment across the street by this evening. MD to round on pt soon to discuss pt's medical status and recommendations. Plan: SW to make HH referral for pt's adamant plan of d/c to home with HH and declining any SNF or Acute Inpt Rehab. ALIVIA Zapata
[2022-10-20 12:30] LABS: BUN Creatinine Ratio 16.3 (6-22); Blood Urea Nitrogen 15 mg/dL (9-20); Carbon Dioxide 30 mmol/L (22-32); Chloride 103 mmol/L (98-107); Estimated Glomerular Filt Rate > 60 mL/min (>60); Glucose 150 mg/dL (80-110); HEMOLYSIS < 15 (0-50); Potassium 3.9 mmol/L (3.4-5.1); Sodium 138 mmol/L (137-145)
--- NOTE | 2022-10-20 12:47 | P.PN_ITS ---
Subjective Subjective Date Patient Seen: 10/20/22 Time Patient Seen: 12:00 Interval history: This is a new patient to me and is seen in cross cover for Dr. Rodriguez who is patient's primary care provider. Reviewed clinic chart notes as well as ER evaluation and H and P from yesterday. Patient had a left MCA, ischemic he had a CT CTA that was fairly normal without acute abnormalities an MRI showed an acute left middle cerebral artery infarct. Echo is pending as well as a barium swallow modified which is not able to be done until Saturday. To my knowledge echo has not been done yet. Patient is insistent on going home today. He was not open to hearing my concer ns for his health and that I did not feel that he was safe for discharge. He has had multiple conversations with every provider who is entered his room stating that he will go home today regardless. He is however open to home health. He lives across the street from the hospital. He has no emergency contacts and he has no DPOA but states that he does have people who look in after him but was not willing to share that information with me nor have me discuss his condition with them. Patient is doing markedly better today he did walk with physical therapy and did have some difficulty having to touch the side of the wall at times but overall really did well without significant deficits. Speech therapy has seen an improvement. And Dr. Sanchez felt that she could interpret about 20% of what he says and I was able to interpret 90% of what he said. He does have some word- finding difficulties. 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 He continues to have a left-sided droop but again unsure if this is related to previous surgery. Patient had difficulty with his sugars overnight he was given his regular Lantus but had had poor p.o. intake yesterday and had low blood sugars and was started on D5. Blood sugars have been stable since then. Patient also had bradycardia into the 30s overnight and therefore his metoprolol was held. Otherwise 12 point review of systems is negative. Patient is eating and swallowing without aspiration. Or choking. Patient is having normal urination and normal p.o. intake. He denies any abdominal pain or chest pain or shortness of breath or PND orthopnea Exam Vital Signs (past 8 hours): - 10/20/22 08:00 10/20/22 11:15 Temperature 97.5 F L Pulse Rate 66 Respiratory Rate 16 Blood Pressure 166/68 H Pulse Oximetry 93 Oxygen Delivery Method Room Air Oxygen Delivery Method Room Air Oxygen Flow Rate 0 Narrative Exam Narrative: Patient is alert and oriented x3. He is lying in the hospital bed and has a left facial droop with as well as previous surgical intervention Eyes pupils equal round and reactive to light, extraocular movements intact, no deviation of the tongue. Normal gag Neck: Supple without adenopathy or thyromegaly no bruits Chest: Clear to auscultation without wheezes rhonchi or crackles Cor: Regular rate and rhythm with distant S1-S2. Telemetry shows no evidence of arrhythmia. Abdomen: Positive bowel sounds, soft, nontender, no hepatosplenomegaly Extremities: No edema, pulses intact Neurologic exam shows bilateral upper and lower extremities neurovascularly intact. I did not check for Romberg. Patient has a left facial droop has some word-finding difficulty otherwise cranial nerves 2-12 intact Objective Labs 10/20/22 12:10 10/20/22 12:10 Labs: Laboratory Results - last 24 hr 10/20/22 10/20/22 12:10 12:10 WBC 5.9 RBC 4.68 Hgb 11.3 L Hct 35.2 L MCV 75.2 L MCH 24.2 L MCHC 32.1 RDW 15.3 H Plt Count 221 Neut % (Auto) 66.2 Lymph % (Auto) 18.4 L [place] % (Auto) 10.6 Eos % (Auto) 3.4 Baso % (Auto) 1.4 Neut # (Auto) 3900 Lymph # (Auto) 1100 [place] # (Auto) 600 Eos # (Auto) 200 Baso # (Auto) 100 Sodium 138 Potassium 3.9 Chloride 103 Carbon Dioxide 30 BUN 15 Creatinine 0.92 Estimated GFR > 60 BUN/Creatinine Ratio 16.3 Glucose 150 H Calcium 8.0 L [facility] Medical History (Updated 10/18/22 @ 17:14 by Lemuel Nava DO) Anemia Anxiety Cholelithiasis Coronary artery disease Essential hypertension Hyperlipidemia Malignant neoplasm of head, 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) Mixed hyperlipidemia (09/22/15) Persistent depressive disorder Recurrent major depressive disorder, in partial remission Skin cancer Type 2 diabetes mellitus with hyperglycemia (09/22/15) Type 2 diabetes mellitus without complication Surgical History History of radical neck surgery (~2011) Status post coronary artery bypass graft (~2005) Family History Father Fam hx-ischem heart disease Mother Family history of Alzheimer's disease Social History marital status: number of children: 1 household members: none lives independently: Yes caregiver/support person: No housing: apartment pets and animals: No education level: college occupational status: other current occupational exposures/hazards: No Previous occupational history: [employer] in [place] carlene/judaism: [facility] travel history: over 6 months ago leisure activities: reading and other Smoking Status: Never smoker Tobacco: How many years used: 0 quit status: quit date established second hand exposure: Yes alcohol intake: current substance use type: does not use Assessment & Plan Assessment & Plan narrative: 82-year-old male who is under the primary care of Dr. Rodriguez with a history of a oropharyngeal cancer which has caused asymmetry of the mouth and baseline difficult speech, hypertension, type 2 diabetes on insulin alone and history of depression with personality disorder as well who has now undergone a left MCA ischemic CVA. Patient has had marked improvement from reading of the notes and discussing with physical therapy today. Assessment 1. CVA Plan: Patient is insistent and perseverating on leaving today. He is alert and oriented and capable of making this decision on his own. He did not want to hear my concerns about his health and risk when we have CVA the potential etiology which we have not found and the possibility having another CVA as well as concerns about his swallowing ability and his risk for aspiration and progression which could lead to . I did discuss this with him but he is adamant that he would like to leave today. He understands that this would be ag ainst my medical advice as well as against the advice of nursing, physical therapy, speech therapy. I feel that he is mentally at his baseline and that we can not hold him here against his wishes. We will attempt to encourage him to stay and if he insists on leaving he will need to sign out against medical advice and we will arrange for home health as well as for transportation home. He lives 1 [address] from the hospital. His echo is not done yet. His telemetry did not show any arrhythmia. He has refused any blood thinner but I did encourage that he stay on the full aspirin that he was placed on yesterday. He will continue on his metoprolol but at half the dose due to bradycardia overnight and we will continue on the statin which he is on as an outpatient. Will continue speech therapy, physical therapy and both recommend as I do skilled care facility. Carotid Doppler was performed that showed no significant stenosis in the internal carotid arteries in the left external carotid artery is excluded. Patient will continue on his statin Assessment 2. Type 2 diabetes on insulin with poor p.o. intake yesterday and then hypoglycemia. Unclear if he was symptomatic. He has received D5 and blood sugars have come up and Lantus will be held today. Discussed the risk of hypoglycemia and hyperglycemia and potential problems associated with this and that I encouraged him to continue with inpatient hospitalization so we could continue to monitor and stabilize his diabetes. Assessment 3. Hyperlipidemia Plan: Continue on outpatient medication Assessment 4. Depression with no acute exacerbation Plan: Continue on his outpatient fluoxetine Assessment 5. History of chronic anemia stable Plan: Workup as outpatient Assessment 6. Malnutrition Plan: Dietary consulted Assessment 7. 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
--- NOTE | 2022-10-20 15:30 | PC.NURSE ---
Pt reporting he is going to leave the facility, even if it means leaving AMA. When asked why pt reported he wanted to use his own nail clippers, which were given to him, and he needed tonic water for muscle cramps. Asked if there was something else he could take or offered to call for meds. Pt reported he doesn't like to use medications and tonic water is natural and effective for his leg cramps. Obtained tonic water for patient and he agreed to stay, until Saturday, since he had some now. MD called and she will allow him to have his tonic water unthickened per his request. Cont with poc.
[2022-10-20] MEDS: INSULIN LISPRO 100 UNIT/ML 3ML VIAL SUBCUT (17:07)
[2022-10-21 03:13] VITALS: BP 160/66; PULSE 15; RESP 15; TEMP 36; O2SAT 100
--- NOTE | 2022-10-21 05:24 | PC.NURSE ---
Patient sleeping most of shift, ER at bedside to start ultrasound IV in rt. forearm. IV fluids of D5NS infusing. heart rate varying, but no episodes of hypotension or hypoglycemia.
[2022-10-21 06:43] LABS: Add Manual Diff / Slide Review NO; Basophils Absolute Auto 100 /uL (0-100); Basophils Percent Auto 1.1 % (0-2); Eosinophils Absolute Auto 200 /uL (0-450); Eosinophils Percent Auto 4.3 % (2-4); Hematocrit 33.9 % (41-53); Lymphocytes Absolute Auto 800 /uL (1100-4500); Lymphocytes Percent Auto 18.7 % (25-40); Mean Corpuscular HGB Conc 32.4 % (30-36); Mean Corpuscular Hemoglobin 24.1 PG (26-34); Mean Corpuscular Volume 74.4 fL (80-100); Monocytes Absolute Auto 400 /uL (0-900); Monocytes Percent Auto 8.8 % (3-14); Neutrophils Absolute Auto 3100 /uL (1500-7000); Neutrophils Percent Auto 67.1 % (50-75); Platelet Count 203 X10^3/uL (150-400); Red Blood Cell Count 4.55 X10^6/uL (4.5-5.9); Red Cell Distribution Width 15.2 % (11.6-14.8); White Blood Cell Count 4.6 X10^3/uL (4.5-11.0)
[2022-10-21 06:55] LABS: Alanine Aminotransferase 16 IU/L (<50); Albumin 2.7 g/dL (3.5-5.0); Alkaline Phosphatase 70 U/L (38-126); Aspartate Aminotransferase 22 IU/L (17-59); BUN Creatinine Ratio 13.6 (6-22); Bilirubin Total 0.3 mg/dL (0.2-1.3); Blood Urea Nitrogen 11 mg/dL (9-20); Calcium 7.8 mg/dL (8.4-10.2); Carbon Dioxide 30 mmol/L (22-32); Chloride 106 mmol/L (98-107); Estimated Glomerular Filt Rate > 60 mL/min (>60); Globulin 2.7 g/dL (1.7-4.1); Glucose 160 mg/dL (80-110); HEMOLYSIS < 15 (0-50); Potassium 3.8 mmol/L (3.4-5.1); Sodium 138 mmol/L (137-145); Total Protein 5.4 g/dL (6.3-8.2)
[2022-10-21] MEDS: ATORVASTATIN 20 MG TABLET 40 MG PO (08:21)
[2022-10-21] MEDS: ENOXAPARIN 40 MG/0.4 ML SYRINGE SUBCUT (08:21)
[2022-10-21] MEDS: FLUoxetine 20 MG CAPSULE PO (08:22)
[2022-10-21] MEDS: FERROUS SULFATE 325 MG TABLET 650 MG PO (08:22)
[2022-10-21] MEDS: ASPIRIN EC 325 MG TABLET PO (08:22)
[2022-10-21] MEDS: PANTOPRAZOLE DR 40 MG TABLET PO (08:22)
--- NOTE | 2022-10-21 09:55 | PT-IP ANOTE ---
Attempted to see pt at 9:45 AM, pt adamantly refused, requesting to continue sleeping. RN present during visit.
--- NOTE | 2022-10-21 10:53 | PT-IP ANOTE ---
Attempted to see pt again at 10:45, pt remains adamant to not participate w/ PT. Pt choking while talking, states that he throws up daily due to choking on non-pureed food. States he will be walking home w/o AD as he lives across the street. Refuses FWW and other safer transport options, such as suggested ride from a friend or taxi. Per previous notes, pt does have balance deficits therefore walking home is not recommended due to high fall risk. Pt states there is a friend/neighbor who could walk with him but does not offer name or contact information. Yells at this LAMP CLEANER to leave and never come back. Discussed w/ nurse and case management team and they are aware of this conversation.
[2022-10-21] MEDS: METOPROLOL ER 25 MG TABLET 12.5 MG PO (10:56)
[2022-10-21 11:31] VITALS: BP 155/63; PULSE 80; RESP 18; TEMP 36.6; O2SAT 99
--- NOTE | 2022-10-21 11:32 | CM.DPNOTE ---
DCP Continued: CM met with patient at the chair side. Patient was A&O x4 . CM started talking with Patient about DC planning and who could help patient get home? patient was very upset and stated that he will walk himself across the street and doesn't need any help. CM explained that he is still weak from his CVA and it would be safer if he had someone to help him get home or maybe a FWW to stabilize himself when going to his apartment even if it is just across the street. Patient became angry and said he is fine and will get himself home and does not want a FWW then told CM to leave his room. Saima East RNbaker second
--- NOTE | 2022-10-21 11:53 | PM.PN.1 ---
Subjective Subjective Date Patient Seen: 10/21/22 Time Patient Seen: 11:53 Interval history: Patient was given tonic water at his request to help with his leg cramps and therefore he agreed to stay in the hospital until Saturday when he would have the barium swallow completed. Patient continues to improve he still has some word-finding difficulty and still some aphasia. However this is much improved from yesterday and per charting appears that much improved from the day before. Nursing staff who is here on Saturday feels that he is able to follow commands much better and will be able to follow the barium swallow if he is agreeable to having it done. Patient had hypoglycemia on the 1st night of admission likely due to no p.o. intake and previous Lantus which is what is used to treat his diabetes. He has been on D5W and this was discontinued this morning. Patient denies any pain. Denies any shortness of breath PND or orthopnea. He denies any abdominal pain. He denies any headaches. Twelve point review of systems is negative other than subjective. Exam Vital Signs (past 8 hours): - 10/21/22 11:31 Temperature 97.8 F Pulse Rate 80 Respiratory Rate 18 Blood Pressure 155/63 H Pulse Oximetry 99 Oxygen Flow Rate 0 Oxygen Delivery Method Room Air Oxygen Flow Rate 0 Narrative Exam Narrative: Blood sugars have been in the 150s to 160s. Patient did not receive insulin yesterday and was on low dose D5. Blood pressures have been 140s to 160s. Metoprolol was held and then decreased from 25-12.5 due to bradycardia. Heart rate has come up. Patient is alert and oriented x3 and is more agreeable to talking. When I entered the room he was standing up brushing his teeth at bedside. HEENT: Patient with left lower lip facial droop. This has continued during hospitalization in his new this hospitalization related to his left MCA CVA. Patient has no deviation of the tongue. No other neurologic defect face and neck. Neck: Supple Chest: Patient with rhonchi right upper and lower lobe but no wheezing or crackles and O2 sats continued to be normal on room air in the upper 90s Cor: Regular rate and rhythm with distant S1-S2 Abdomen: Positive bowel sounds, soft, nontender, nondistended Extremities: No edema pulses intact Neurologic exam: Strength is 5/5 in all large muscle groups of the bilateral upper and lower extremities patient is still with balance problems. Patient refused to work with physical therapy this morning. Speech therapy has not seen him yet today. Objective Labs 10/21/22 06:00 10/21/22 06:00 Labs: Laboratory Results - last 24 hr 10/20/22 10/20/22 10/21/22 12:10 12:10 06:00 WBC 5.9 4.6 RBC 4.68 4.55 Hgb 11.3 L 11.0 L Hct 35.2 L 33.9 L MCV 75.2 L 74.4 L MCH 24.2 L 24.1 L MCHC 32.1 32.4 RDW 15.3 H 15.2 H Plt Count 221 203 Neut % (Auto) 66.2 67.1 Lymph % (Auto) 18.[address] [place] % (Auto) 10.6 8.8 Eos % (Auto) 3.4 4.3 H Baso % (Auto) 1.4 1.1 Neut # (Auto) 3900 3100 Lymph # (Auto) [address] [place] # (Auto) 600 400 Eos # (Auto) 200 200 Baso # (Auto) 100 100 Sodium 138 Potassium 3.9 Chloride 103 Carbon Dioxide 30 BUN 15 Creatinine 0.92 Estimated GFR > 60 BUN/Creatinine Ratio 16.3 Glucose 150 H Calcium 8.0 L Total Bilirubin AST ALT Alkaline Phosphatase Total Protein Albumin Globulin Albumin/Globulin Ratio 10/21/22 06:00 WBC RBC Hgb Hct MCV MCH MCHC RDW Plt Count Neut % (Auto) Lymph % (Auto) [place] % (Auto) Eos % (Auto) Baso % (Auto) Neut # (Auto) Lymph # (Auto) 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, in partial remission Skin cancer Type 2 diabetes mellitus with hyperglycemia (09/22/15) Type 2 diabetes mellitus without complication Surgical History History of radical neck surgery (~2011) Status post coronary artery bypass graft (~2005) Family History Father Fam hx-ischem heart disease Mother Family history of Alzheimer's disease Social History marital status: number of children: 1 household members: none lives independently: Yes caregiver/support person: No housing: apartment pets and animals: No education level: college occupational status: other current occupational exposures/hazards: No 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 Patient has had marked improvement from reading of the notes and discussing with physical therapy today. Assessment 1.? CVA Plan:? Patient continues to improve. I encouraged him to work with physical therapy and speech therapy. He agrees to hospitalization tomorrow until he has the barium swallow. There is concern for aspiration but at this point I am seeing no evidence of aspiration pneumonia but we will continue to monitor. Echo has been done but has not been red or documentation of this is not available. His telemetry did not show any arrhythmia.? Patient has not shown any arrhythmia. There was some evidence of possible nonsustained ventricular tachycardia but this was felt to be related to him moving and adjusting the telemetry pads and trying to go home. Telemetry is discontinued today. Will continue speech therapy, physical therapy and both recommend as I do skilled care facility. But patient is not agreeable this but he is agreeable to home health. I encouraged patient to do physical therapy and occupational therapy today. He refused to do physical therapy. We discussed the rationale. Carotid Doppler was performed that showed no significant stenosis in the internal carotid arteries in the left external carotid artery is excluded.? Patient will continue on his statin and will continue on metoprolol at 12.5 mg daily. Will also continue with aspirin daily. Patient was not on aspirin prior to CVA. Assessment 2.? Type 2 diabetes on insulin with poor p.o. intake yesterday and then hypoglycemia.? Unclear if he was symptomatic.? He has received D5 and blood sugars have come up and Lantus will be held today and D5 will be discontinued, we will work to get his blood sugars under better control. Assessment 3. Hyperlipidemia Plan: Continue on outpatient medication Assessment 4. Depression with no acute exacerbation Plan: Continue on his outpatient fluoxetine Assessment 5. History of chronic anemia stable, microcytic, slightly worsened likely dilutional due to IV fluids Plan: Will guaiac stools. This has been a chronic condition will need workup as outpatient Assessment 6.? Malnutrition Plan: Dietary consulted Assessment 7. 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 He would like a DNR code status. 65 minutes spent with patient in reviewing chart meeting with patient formulating a plan limitation
[2022-10-21] MEDS: INSULIN LISPRO 100 UNIT/ML 3ML VIAL SUBCUT ×2 (12:18→16:57)
[2022-10-21 16:00] VITALS: BP 142/59; PULSE 47; RESP 47; TEMP 36.2; O2SAT 98
[2022-10-21 19:45] VITALS: BP 152/41; PULSE 55; RESP 14; TEMP 36.7; O2SAT 100
[2022-10-22] VITALS: BP 198/78; PULSE 70; RESP 17; TEMP 36.4; O2SAT 98
[2022-10-22 03:40] VITALS: BP 196/66; PULSE 73; RESP 14; TEMP 36.3; O2SAT 97
[2022-10-22 05:55] LABS: Add Manual Diff / Slide Review NO; Basophils Absolute Auto 100 /uL (0-100); Eosinophils Absolute Auto 200 /uL (0-450); Eosinophils Percent Auto 3.5 % (2-4); Hematocrit 34.2 % (41-53); Hemoglobin 11.1 g/dL (13.5-17.5); Lymphocytes Absolute Auto 1000 /uL (1100-4500); Lymphocytes Percent Auto 15.3 % (25-40); Mean Corpuscular HGB Conc 32.4 % (30-36); Mean Corpuscular Hemoglobin 24.1 PG (26-34); Mean Corpuscular Volume 74.3 fL (80-100); Monocytes Absolute Auto 500 /uL (0-900); Monocytes Percent Auto 8.4 % (3-14); Neutrophils Absolute Auto 4500 /uL (1500-7000); Neutrophils Percent Auto 71.8 % (50-75); Platelet Count 211 X10^3/uL (150-400); White Blood Cell Count 6.2 X10^3/uL (4.5-11.0)
[2022-10-22 06:05] LABS: HEMOLYSIS < 15 (0-50); Potassium 3.9 mmol/L (3.4-5.1)
[2022-10-22 06:06] LABS: BUN Creatinine Ratio 12.5 (6-22); Blood Urea Nitrogen 11 mg/dL (9-20); Calcium 7.8 mg/dL (8.4-10.2); Carbon Dioxide 29 mmol/L (22-32); Chloride 105 mmol/L (98-107); Estimated Glomerular Filt Rate > 60 mL/min (>60); Glucose 129 mg/dL (80-110); Sodium 137 mmol/L (137-145)
[2022-10-22 08:00] VITALS: BP 168/66; PULSE 76; RESP 18; TEMP 36.1; O2SAT 99
[2022-10-22] MEDS: PANTOPRAZOLE DR 40 MG TABLET PO (08:46)
[2022-10-22] MEDS: FLUoxetine 20 MG CAPSULE PO (08:46)
[2022-10-22] MEDS: ATORVASTATIN 20 MG TABLET 40 MG PO (08:46)
[2022-10-22] MEDS: ASPIRIN EC 325 MG TABLET PO (08:46)
[2022-10-22] MEDS: FERROUS SULFATE 325 MG TABLET 650 MG PO (08:46)
[2022-10-22] MEDS: METOPROLOL ER 25 MG TABLET 12.5 MG PO (08:47)
[2022-10-22] MEDS: lisinopriL 5 MG TABLET PO (08:47)
[2022-10-22] MEDS: INSULIN GLARGINE 100 UNIT/ML 3ML PEN 45 UNIT SUBCUT (08:54)
[2022-10-22] MEDS: ENOXAPARIN 40 MG/0.4 ML SYRINGE SUBCUT (08:55)
--- NOTE | 2022-10-22 09:38 | P.DS_ITS ---
History of Present Illness History of Present Illness Date Patient Seen: 10/22/22 Chief complaint: It's like I can't think, Trouble concentrating Narrative: Pt is an 82yo man with depression, HTN, CAD, Type 2 DM, anemia, and hx of oral cancer who presented with confusion, upper extremity weakness, and difficulty speaking. The pt reports that yesterday around 4pm he was at [employer] attempting to purchase some lottery tickets, and had a difficult time communicating his desires. He also felt more confused than usual. He couldn't find his words, and was slurring them. He then went to drive home, and it took him much longer to buckle his seatbelt than usual due to weakness in his hands. He then came to the ED for evaluation. The ED physician reports near resolution of his symp toms, however the pt this morning states that he normally speaks much more clearly than he is, and does not have this hard a time finding words. It is indeed quite challenging to communicate with the patient. He states that the arm weakness has resolved. He denies any associated chest pain, SOB, LE weakness, or facial droop. His facial asymmetry is baseline after removal of a tumor more than 10 years ago. Discharge Providers Provider Date of admission: 10/19/22 11:00 Discharge Date: 10/22/22 Primary care physician: Ryan Rodriguez MD Consults: 10/18/22 20:24 Consult to Speech Therapy Evaluate & Treat Comment: Physician Instructions: Evaluate and treat 10/19/22 10:14 Consult to Dietitian, Adult Routine Comment: Reason For Exam: eval for weight loss, malnutrition 10/19/22 12:35 Consult to Occupational Therapy Evaluate & Treat Comment: Physician Instructions: Evaluate and treat Consult to Physical Therapy Evaluate & Treat Comment: Physician Instructions: Evaluate and Treat 10/20/22 12:48 Consult to Home Health Routine Comment: expressive and receptive aphagia, weakness, modifi Reason For Exam: RN/PT/ST for discharge to home Discharge provider: Nery Goel MD Summary Hospital Course Discharge Diagnosis: 1.?CVA 2.?Type 2 diabetes on insulin 3. Hyperlipidemia 4. Depression with no acute exacerbation 5. History of chronic anemia stable 6.?Malnutrition 7. Pharyngeal cancer without acute issues, history of 8. Systolic congestive heart failure without exacerbation 9. Severe dysphagia with aspiration 10. Severe acute protein calorie malnutrition Hospital Course: The pt presented with symptoms consistent with CVA including expressive and receptive aphasia, in addition to upper extremity weakness. The weakness in his upper extremities resolved relatively quickly, however aphasia remained. Head/Neck CT/CTA showed heavy bilateral carotid bulb calcifications but otherwise no significant changes. Carotid u/s showed < 50% stenosis bilaterally and occluded left ECA. Brain MRI showed acute MCA embolic infarct, confirming the pts CVA. The pts aphasia did improve significantly while he was in the hospital, although not completely back to baseline. Speech was consulted due to the pts presenting symptoms, and was quite concerned with the pts difficulty swallowing. Pureed solids and ice chips only for l iquids were recommended. It was recommended that the pt not take any medications orally, however the pt declined IV medications and wanted to take his medications in applesauce like he does at home. At thorough discussion of risks, his medications were continued orally in applesauce while he was in the hospital. Nutrition was also consulted due to the pts severe malnutrition. The pt was not very interested in working with them. Barium swallow evaluation was completed the day of discharge, with significant tracheal aspiration present. They recommended NPO diet and referral to GI. The pt declined NPO diet, aware of the risks, and desired discharge home. He was not interested in a PEG tube during this admission. The pt was continued on his insulin while in the hospital. The night of 10/19 he had a hypoglycemic episode. He then increased PO intake the next day, and the remainder of his blood sugars were in good range. Echocardiogram completed showed an EF of 45-50% with inferior wall hypokinesis. He did not exhibit and signs/symptoms of CHF while in the hospital. His BP was quite elevated, and he was initiated on 5mg of PO Lisinopril prior to discharge. PT evaluation was completed the first 2 days in the hospital. They recommended discharge to SNF, due to the high needs of the patient with ambulation. He then declined PT the additional 3 days in the hospital. The pt adamantly declined discharge to rehab, and ultimately discharged home with home health, aware of t he safety concerns. Status at Discharge Cognitive/behavioral status at discharge: oriented Functional status at discharge: uses cane/walker Overall status at discharge: patient is not back to baseline Exam Vital Signs (past 8 hours): - 10/22/22 03:40 10/22/22 08:00 Temperature 97.4 F L 97.0 F L Pulse Rate 73 76 Respiratory Rate 14 18 Blood Pressure 196/66 H 168/66 H Pulse Oximetry 97 99 Oxygen Flow Rate 0 0 Oxygen Delivery Method Room Air Oxygen Flow Rate 0 Narrative Exam Narrative: Gen: NAD, sitting comfortably in chair CV: RRR, grade 3/6 systolic murmur Resp: clear to auscultation bilaterally Abd: soft, nontender, nondistended, normoactive bowel sounds Ext: no edema Neuro: left sided facial droop still present however pt reports is from prior surgery, otherwise CN intact; expressive aphasia significantly improved from prior; balance not tested today however reportedly still with issues - declined PT, is gurgling with eating food Objective Labs 10/22/22 05:10 10/22/22 05:10 Labs: Laboratory Results - last 24 hr 10/22/22 10/22/22 05:10 05:10 WBC 6.2 RBC 4.60 Hgb 11.1 L Hct 34.2 L MCV 74.3 L MCH 24.1 L MCHC 32.4 RDW 15.0 H Plt Count 211 Neut % (Auto) 71.8 Lymph % (Auto) 15.3 L [place] % (Auto) 8.4 Eos % (Auto) 3.5 Baso % (Auto) 1.0 Neut # (Auto) 4500 Lymph # (Auto) 1000 L [place] # (Auto) 500 Eos # (Auto) 200 Baso # (Auto) 100 Sodium 137 Potassium 3.9 Chloride 105 Carbon Dioxide 29 BUN 11 Creatinine 0.88 Estimated GFR > 60 BUN/Creatinine Ratio 12.5 Glucose 129 H Calcium 7.8 L PFSH Medical History (Updated 10/18/22 @ 17:14 by Lemuel Nava DO) Anemia Anxiety Cholelithiasis Coronary artery disease Essential hypertension Hyperlipidemia Malignant neoplasm of head, 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) Mixed hyperlipidemia (09/22/15) Persistent depressive disorder Recurrent major depressive disorder, in partial remission Skin cancer Type 2 diabetes mellitus with hyperglycemia (09/22/15) Type 2 diabetes mellitus without complication Surgical History History of radical neck surgery (~2011) Status post coronary artery bypass graft (~2005) Family History Father Fam hx-ischem heart disease Mother Family history of Alzheimer's disease Social History marital status: number of children: 1 household members: none lives independently: Yes caregiver/support person: No housing: apartment pets and animals: No education level: college occupational status: other current occupational exposures/hazards: No 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[place] 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/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 orthodox: [facility] travel history: over 6 months ago leisure activities: reading and other Smoking Status: Never smoker Tobacco: How many years used: 0 quit status: quit date established second hand exposure: Yes alcohol intake: current substance use type: does not use Discharge Plan Discharge Plan Patient Disposition: Home Health Service Discharge orders & Medications Prescriptions: New aspirin 325 mg Tablet,Delayed Release (Dr/Ec) 325 mg PO DAILY Qty: 30 0RF lisinopril 5 mg Tablet 5 mg PO DAILY Qty: 30 0RF Continued ferrous sulfate [Feosol] 325 mg (65 mg iron) tablet 650 mg PO DAILY fluoxetine 20 mg capsule 20 mg PO QDAY Qty: 90 1RF cholecalciferol (vitamin D3) 50 mcg (2,000 unit) capsule 50 mcg PO DAILY [place] 5/16 Inch 0 item Qty: 100 PRNRF Syringes: 1cc U-100 Insulin Syringe 25g x 1 Qty: 200 PRNRF atorvastatin [Lipitor] 40 mg tablet 40 mg PO Q DAY Qty: 90 3RF pantoprazole [Protonix] 40 mg tablet,delayed release (DR/EC) 40 mg PO QDAY Qty: 90 3RF metoprolol succinate 25 mg tablet extended release 24 hr 25 mg PO DAILY Qty: 90 3RF (DME) blood sugar diagnostic [Blood Glucose Test] Strip See Rx Instructions .ROUTE .MEDSUPPLY Qty: 250 6RF Rx Instructions: for Lifestyle LIte meter, use to check sugar up to 6 times a day Lantus Solostar U-100 Insulin 100 unit/mL (3 mL) insulin pen 45 unit subcut DAILY Qty: 75 11RF Novolog FlexPen U-100 Insulin 100 unit/mL (3 mL) insulin pen 1 - 12 unit SUBCUT QACHS PRN (Reason: hyperglycemia) Qty: 30 3RF Follow up/Referrals: Ryan Rodriguez MD [Primary Care Provider] - 1 Week Diet/Activity/Treatments Diet: Diet as Tolerated Visit Report/Discharge Packet Instructions: DI for Stroke-Ischemic, DI for Malnutrition - Older Adults Stand Alone Forms: Patient Portal/API, Stroke Signs & Symptoms Discharge Data Primary Care Provider: Ryan Rodriguez Discharges patient from system. Discharge Date/Time: 10/22/22 15:30
--- NOTE | 2022-10-22 09:48 | PC.NURSE ---
Addendum entered by Karla Currie R.N. 10/22/22 13:43: They are recommending that patient be npo. Called and left a message with and she will call back and then we can figure out if patient is going to go home today, he lives across the street. Original Note: Patients blood sugar this morning 129. He is eating breakfast and 30u of insulin given. Patient had a procedure where he had his tonsils, and part of his tongue removed due to squamous cell cancer. He does have some aphagia but he is understandable with speech. He does not have any other deficits noted. He states that almost every meal he does spit up. Given oral meds in apple sauce and he is sittin in chair.
--- NOTE | 2022-10-22 10:41 | DIET.CONS2 ---
Dietary Inpatient Consultation Note Admission Date: 10/19/2022 11:00 RD contacted by Unit Host over weekend. Pt very upset with pureed diet. Does not want oatmeal or bananas pureed. Pt educated on safety of current diet texture and pts spitting up non-pureed consistencies. Pureed diet continued at this time per MD and MAINTENA[employer] order. Diet: 10/19/22 Dinner Carbohydrate Consistent Diet Diet Modifications: NO LIQUIDS, ICE CHIPS ONLY Carbohydrate level: Medium (3 CHO) Reflex DM orders: No Dysphagia Diet Diet Modifications: ICE CHIPS ONLY. (order will not let me list this) Liquid consistency: Pudding Consistency Food texture: Dysphagia Pureed Nutrition Percent Meal Consumed 100% 10/21/22 18:41 Percent Meal Consumed 50% 10/21/22 13:32 Percent Meal Consumed 75% 10/21/22 11:32 General Nutrition Dietary Nutrition Intervention Start: 10/19/22 12:17 Freq: Status: Active Protocol: Document 10/19/22 12:17 AP (Rec: 10/19/22 12:17 AP [id number]) Nutritional Calculations Patient Data Protocol: NUTR.AMPUT Height 177.8 cm Weight 71.4 kg Weight Calculations Protocol: NUTR.WC [place] Body Weight (lbs) 166.00 [place] Body Weight (kgs) 75.30 Percent of [place] Body Weight (%) 95 Adjusted Body Weight (lbs) 163.85 Adjusted Body Weight (kgs) 74.32 BMI Protocol: NUTR.BMI Body Mass Index (BMI) 22.6 Body Mass Index (BMI) Classification Normal BEE - [place] Equation Protocol: NUTR.BEE Basal Energy Expenditure (BEE) (kcal) 1375.46 RMR - [place] Equation Protocol: NUTR.RMR Resting Metabolic Rate (kcal) 1421.18 Estimated Protein Requirements Based on Age and Weight Protocol: NUTR.EPR1 Estimated Protein Needs (grams/day) 57.1 Fluid Requirements - Method 2 Fluid Requirements (Method 2) (mL/day) 2271.00 Fluid Requirements - Method 4 Fluid Requirements (Method 4) (mL/day) 2271.00 Fluid Requirements - Method 5 Fluid Requirements (Method 5) (mL/day) 2075.00 Electronically Signed by: Miguelina Price 10/22/22 10:41 Clinical Dietitian [address] [address]
--- NOTE | 2022-10-22 11:15 | PT.IPTN ---
Current Diagnoses Cerebral infarction, unspecified (10/19/22) Physical Therapy Treatment Note M2 PT-IP Current Condition Start: 10/19/22 14:18 Freq: NEEDED Status: Active Protocol: Document 10/19/22 14:15 DCW (Rec: 10/19/22 14:59 DCW [id number]) Physical Therapy Current Condition Current Condition Evaluation Date 10/19/22 Treatment Diagnosis CVA Onset Date 10/19/22 M3 PT-IP Subjective Start: 10/19/22 14:18 Freq: NEEDED Status: Active Protocol: Document 10/22/22 11:25 TS (Rec: 10/22/22 11:45 TS [id number]) Subjective Physical Therapy Visit Type Type Treatment Note Visit Start Time 11:15 Visit Stop Time 11:26 Total Visit Minutes 11 Physical Therapy Visit Comments Patient Comments Pt found resting in bed, wants to go home, agreeable to PT. M4 PT-IP Mobility and Gait Start: 10/19/22 14:18 Freq: NEEDED Status: Active Protocol: Document 10/22/22 11:25 TS (Rec: 10/22/22 11:45 TS [id number]) PT-Transfer Assessment Sit to and From Stand Sit to and from Stand Independent Equipment Transfer Assistive Device Gait Belt Comments Mobility Comments Pt found resting in bed, agreeable to PT session. Pt performed sit to stand x1 Ind with no AD. Pt ambualted in hallway ~300' no AD, some swaying with one instance of using rail for support. Pt performed stairs x3 with BUE handrail assist, no buckling or LOB. In room ambulated ~10' with cane for extra support, pt does not like it and does not want to use an AD. Pt was left in bedside chair, is waiting on swallow test, wants to go home. Gait Assessment Gait Gait Assistance Required: Standby Assistance Distance (Feet) 300 Assistive Devices Assistive Device Gait Belt Factors Limiting Gait Function Factors Limiting Gait Function Difficulty Following Directions,Poor Balance,Poor Safety Awareness Comments Gait Comments Pt ambulated ~300' SBA with no AD, some swaying, x1 rail assist for balance. Stair Climbing Assessment Evaluation Level of Assist On Stairs Standby Assistance Devices Stair Climbing Assistive Devices Left Railing,Right Railing Technique/Endurance Stair Climbing Direction Ascend and Descend Stair Climbing Technique Step Over Step Number of Steps Climbed 3 Comments Stair Climbing Comments See mobility comments PT-Balance Assessment Sitting Balance and Reactions Static Sitting Balance Ability Normal Dynamic Sitting Balance Ability Good Standing Balance and Reactions Static Standing Balance Ability Good Dynamic Standing Balance Ability Fair Device Used None Comments Other Balance Tests/Deviations/Treatment Pt sways with ambulation, x1 : requiring handrail assist for balance. M5 PT-IP Objective Assessments Start: 10/19/22 14:18 Freq: NEEDED Status: Active Protocol: Document 10/19/22 14:15 DCW (Rec: 10/19/22 14:59 DCW [id number]) Orientation Orientation/Cognition Level of Alertness Alert Language Function Ability Expressive Aphasia,Receptive Aphasia Safety Awareness Decreased Safety Awareness Gross Range of Motion Lower Extremity ROM Assessment Within Functional Limits Strength Lower Extremity Strength Assessment Within Functional Limits M7 PT-IP Assessment and Plan Start: 10/19/22 14:18 Freq: NEEDED Status: Active Protocol: Document 10/22/22 11:25 TS (Rec: 10/22/22 11:45 TS [id number]) PT Summary Assessment and Plan Potential Rehabilitation Potential Good Status of Condition at Evaluation Evolving Summary Impairments Balance,Coordination,Cognition ,Gait Assessment Summary Pt continues to be Ind with bed mobility and ambulated 300 ' SBA with no AD, x1 requiring handrail assist for balance. He performed stairs SBA x3 with BUE handrail assist. PT continues to recommend Acute rehab to improve balance with gait, pt wants to go home and therapy would recommend outpatient PT for balance improvements. Pt is unsteady on feet, with some swaying and difficulty maintaining a straight line, pt declined assistive device, feels he does not need. Goals Gait Goal Standby Assistance Gait Distance 300 Other Goals No loss of balance with head turns Days to Meet Goals 3 Frequency of Treatment Frequency Of Treatment Once a Day Treatment Plan Physical Therapy Treatment Plan Balance Retraining,Discharge Planning,Neuromuscular Re-ed, Coordination Retraining Recommendations To Nursing Amount of Assist Needed Standby Assistance Discharge Recommendations PT Discharge Recommendations Acute Rehab Transportation Needs at Discharge Private Vehicle
--- NOTE | 2022-10-22 11:21 | DI.RAD.S_ITS ---
PROCEDURE: FL BARIUM SWALLOW W SPEECH INDICATIONS: dysphagia COMPARISON: TECHNIQUE: Examination was conducted in conjunction with speech pathology per standard protocol. In the lateral projection, filming was performed of the patient swallowing. AP projection filming may also be performed with patient swallowing. COMPARISON: [facility], , BARIUM SWALLOW WITH SPEECH, 09/03/2013, 11:46. FINDINGS: Pronounced vallecular and piriform sinus residue. Epiglottic inversion appears decreased or absent. Aspiration was observed with at least thin barium, likely multiple different consistencies. IMPRESSION: 1. Tracheal aspiration occurred during the exam. 2. Please see the speech pathologist report for additional details. Dictated by: Alverto Feldman M.D. on 10/22/2022 at 14:15 Approved by: Alverto Feldman M.D. on 10/22/2022 at 14:16
[2022-10-22] MEDS: INSULIN LISPRO 100 UNIT/ML 3ML VIAL SUBCUT (11:58)
[2022-10-22 12:00] VITALS: BP 148/60; PULSE 47; RESP 16; TEMP 36.3; O2SAT 99
--- NOTE | 2022-10-22 12:50 | OT.IPNOTE ---
Attempted to see pt for OT services. Pt declined all activity with this card writer hand. Pt states he just wants to know when he can go home. Check with nursing for d/c plan. Pt was notified of d/c plan by nursing.
--- NOTE | 2022-10-22 13:16 | CM.DPC ---
Addendum entered by Christy Zavaleta R.N. 10/22/22 15:17: Patient has discharging today. Called over to [facility], spoke to Maya, she is aware. Will fax over DC Summary, have orders and face to face as well. Original Note: DCP Cont: Patient may discharge home after barium swallow. Procedure is scheduled for 1330. [facility] has been initiated, would need to update them upon discharge. Dr. Goel came by and stated that patient may be discharged, but is not safe to drive. Patient lives across the [address] at [facility], and does not want patient to drive, he is not safe. She is requesting that patient is escorted downstairs by senior cyber security analyst, to ensure that patient does not attempt to drive. If patient is adamant about driving, then the police department are to be called. Have updated charge professor of nursing, Loc, who will also update nurse, Karla. P: DCP to continue to follow. Plan is home, possibly today, with [facility]. Christy Zavaleta RN/Gaming Worker
--- NOTE | 2022-10-22 15:58 | ST.SWALLOW ---
Visit Care Team Role Provider Type Lemuel Nava DO Emergency Provider Physician Referring Provider Specialty: Emergency Medicine Address: [address] [place] [address], [id number] Email: [email or web address] Ryan Rodriguez MD Attending Provider Physician Primary Care Provider Specialty: Internal Medicine Address: [address] [place] [address], [address], [place], [address] Email: [email or web address] Jadon Coelho MD Admit Provider Physician Other Providers Specialty: Family Practice Address: [facility] [address], [place], [address] Email: [email or web address] Modified Barium Swallow Study ROGUER Modified Barium Swallow Study Start: 10/22/22 15:02 Freq: Status: Discharge Protocol: Document 10/22/22 15:31 ZS (Rec: 10/22/22 15:41 ZS [id number]) Modified Barium Swallow Study Total Time Visit Start Time 13:10 Visit Stop Time 13:35 Total Visit Minutes 25 Setting Setting Acute Care Patient Information Identification Type Name Patient History Per ER documentation: 82-year -old male nonsmoker with history of hypertension and diabetes presents under his own care with a chief complaint of 30 minutes of confusion, difficulty finding words and trouble walking straight line. He states that he was in his normal state of health prior to this and denies any trauma or fever. He denies blurred vision. He denies any numbness, tingling or weakness of his extremities . He has no chest pain, shortness of breath or palpitations. He denies any abdominal pain, nausea, vomiting or diarrhea. He is had no recent trauma or injury . He is activated as a code stroke soon after arrival. Since admission, his symptoms have mostly resolved. 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 Pt stated to nurse that he usually uses applesauce to take his medications. He has a history of difficulty with swallowing foods and says he sometimes has to spit them out in the sink. 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 MRI shows left MCA infarct. Subjective Observations Pt was seated in exam chair when ROGUER and ROGUER student arrived. Pt expressed he is ready to go home and this is the last thing he is doing before he gets outta here. Provided education regarding process and procedure and pt expressed understanding and agreed to participate. Patient Positioning Position View Lat-A/P Imaging Lateral View Textures Administered Trials Presented Thin Liquid via Cup (IDDSI 0), Moderately Thick Liquid via Spoon (IDDSI 3),Extremely Thick Liquid via Spoon (IDDSI 4),Puree (IDDSI 4) Barium Tablet No The IDDSI Framework Protocol: IDDSI.1 Oral Impairment Source: The Modified Barium Swallow Impairment Profile (MBSImP??) Lip Closure Interlabial escape; no progression to anterior lip Tongue Control During Bolus Hold Posterior escape of less than half of bolus Bolus Transport/Lingual Motion Slowed tongue motion Oral Residue Residue collection on oral structures Location Tongue Initiation of Pharyngeal Swallow Bolus head in valleculae Additional Oral Impairment Observations Posterior loss of bolus during tongue hold, with bolus resting in vallecula. Noted difficulty with a/p propulsion of bolus across all textures. Tongue pumping observed with thin liquids to propel bolus posteriorly. Difficult to assess initiation of pharyngeal swallow after initial PO trial due to volume of pharyngeal residue. Pharyngeal Impairment Source: The Modified Barium Swallow Impairment Profile (MBSImP??) Soft Palate Elevation No bolus between soft palate & pharyngeal wall Laryngeal Elevation Min.sup.move. thyroid cart. w/ min.approx.arytenoids to epiglot.petiole Anterior Hyoid Excursion Partial anterior movement Epiglottic Movement No inversion Laryngeal Vestibular Closure None; wide column air/contrast in laryngeal vestibule Pharyngeal Stripping Wave Absent Pharyngoesophageal Segment Opening Minimal distension/minimal duration; marked obstruction of flow Tongue Base Retraction Wide column of contrast/air between tongue base & post. pharyngeal wall Pharyngeal Residue Minimal to no pharyngeal clearance Location Diffuse (>3 areas) Additional Pharyngeal Impairment Delayed initiation of Observations pharyngeal swallow with head of bolus in vallecula. Significantly diminished to no pharyngeal stripping wave observed. Minimal clearance of bolus through upper esophageal sphincter (UES) across all trials. Additionally, epiglottic inversion was significantly reduced and absent on several trials. Partial epiglottic inversion noted on thin liquids with initial swallow, though absent for most subsequent swallows. Pt took several swallows to clear thin liquids through UES with limited success. Limited UES clearance and limited epiglottic inversion negatively contribute to swallow safety. Aspiration noted on several swallows, including 5 instances with thin liquids (PAS 5 x1, PAS 8 x4) despite single PO trial of this consistency. Honey Thick Liquid (HTL) trialed to aid in UES clearance with no success. Aspiration noted with HTL x1 (PAS 8). Additional instances of aspiration may have occurred between video captures due to high volume of residue and severely impaired airway protection. Pt exhibited throat clearing and re-swallow repeatedly following initial PO trial to help clear bolus with limited success. Pudding thick liquid trialed to aid in UES clearance, which was not successful. Attempted chin tuck and verbal cues for effortful swallow with no impact on clearance or swallow safety. Residue remained in vallecula and pyriforms with limited clearance through UES at the end of the session. A/P View The IDDSI Framework Protocol: IDDSI.1 A/P View Observations Additional A-P Observations Transitioned to A/P view to see if portion of bolus that cleared UES moved through esophagus. Esophagus was clear upon initial inspection and observed small bolus completely clear esophagus when pt swallowed more of residue from pyriforms. Did not complete any additional trials in A/P view due to aspiration/occlusion risk. Clinical Impressions Dysphagia Type Oral,Pharyngeal Findings The pt presented with severe oropharyngeal phase dysphagia characterized by severely impaired airway protection and severely limited UES opening. Additionally, pt exhibited posterior loss of bolus with thin liquids. Did not assess mastication due to risk for aspiration/occlusion. Pt presents with limited hyolaryngeal elevation and excursion, which limits epiglottic inversion. Epiglottic inversion was not observed on several swallows and when it was present, it was significantly diminished. Pt also exhibited high volume of pharyngeal residue in vallecula and pyriforms as a result of severely impaired UES opening. Combination of limited epiglottic inversion and high volume of pharyngeal residue places pt at very high risk for aspiration/ penetration/occlusion. Aspiration noted x5 with thin liquids (Pas 5 x1, PAS 8 x4) and x1 with HTL (PAS 8). Additional aspiration may have occurred between video captures that was not recorded by ROGUER. Recommend NPO diet with ice chips only. Recommend referral to GI to further assess and recommend treatment for UES opening. Pt would benefit from speech therapy to aid in strengthening of swallow musculature for improved swallow safety. Patient Appropriate for Therapy Yes Recommendations Diet Medication Recommendation Not Recommended by Mouth Comments NPO diet recommended Aspiration Precautions Additional Precautions NPO diet recommended Treatment Plan Therapy Recommendations Outpatient Speech Therapy Recommended Referrals GI Consult Short Term Goals 1. The pt will perform exercises to increase strength , coordination, and ROM of swallow musculature independently to reduce risk of aspiration. 2. The pt will participate in education regarding swallow structures and swallow safety. Fdc Goals The pt will safely tolerate least restrictive diet to meet his nutrition and hydration needs.
== END 2022-10-22 15:30 | disposition home health service (06) | DRG 64 ==
LOC: ED 17:14 → AC 17:35
PROVIDERS: Family Medicine; Admitting Provider Family Medicine; Emergency Provider Emergency Medicine; PCP Internal Medicine; Referring Provider Emergency Medicine; Visit Provider Internal Medicine
DX: I63.9 Cerebral infarction, unspecified (principal); E43 Unspecified severe protein-calorie malnutrition; I50.20 Unspecified systolic (congestive) heart failure; R47.01 Aphasia; D64.9 Anemia, unspecified; I25.10 Atherosclerotic heart disease of native coronary artery without angina pectoris; F32.A Depression, unspecified; I11.0 Hypertensive heart disease with heart failure; E78.5 Hyperlipidemia, unspecified; R29.703 NIHSS score 3; R29.706 NIHSS score 6; E11.649 Type 2 diabetes mellitus with hypoglycemia without coma; Z66 Do not resuscitate; Z68.22 Body mass index [BMI] 22.0-22.9, adult; Z79.4 Long term (current) use of insulin; Z20.822 Contact with and (suspected) exposure to COVID-19
CPT/HCPCS: 36415; 70450; 70496; 70498; 70551; 74230; 80048; 80053; 80305; 80320; 81001; 82550; 82962; 84484; 85025; 85610; 85730; 87635; 92507; 92523; 92610; 92611; 93005; 93010; 93306; 93880; 97116; 97162; 97167; 97535; 99223; 99238; 99284; C9803; G0378; J0360; J1650; J1815

== ENCOUNTER → 2022-12-10 11:14 | Outpatient (CLI) | payer MEDICARE, SELFPAY ==
[2022-10-18 18:04] VITALS: BMI 15.1
[2022-12-10 13:30] LABS: Alanine Aminotransferase 24 IU/L (<50); Albumin 3.4 g/dL (3.5-5.0); Albumin Globulin Ratio 1.4 (1.0-2.8); Alkaline Phosphatase 67 U/L (38-126); Aspartate Aminotransferase 28 IU/L (17-59); BUN Creatinine Ratio 17.6 (6-22); Bilirubin Total 0.6 mg/dL (0.2-1.3); Blood Urea Nitrogen 19 mg/dL (9-20); Calcium 8.4 mg/dL (8.4-10.2); Carbon Dioxide 31 mmol/L (22-32); Chloride 102 mmol/L (98-107); Estimated Glomerular Filt Rate > 60 mL/min (>60); Globulin 2.4 g/dL (1.7-4.1); Glucose 148 mg/dL (80-110); HEMOLYSIS < 15 (0-50); Potassium 4.5 mmol/L (3.4-5.1); Sodium 138 mmol/L (137-145); Total Protein 5.8 g/dL (6.3-8.2)
[2022-12-11 07:43] LABS: x Labcorp Estim. Avg Glu (eAG) 177 mg/dL (.); x Labcorp Hemoglobin A1c 7.8 % (4.8-5.6)
== END ==
PROVIDERS: PCP Internal Medicine; Referring Provider Internal Medicine; Visit Provider Internal Medicine
DX: E78.2 Mixed hyperlipidemia (principal); Z79.4 Long term (current) use of insulin; E11.9 Type 2 diabetes mellitus without complications
CPT/HCPCS: 36415; 80053; 83036

== ENCOUNTER → 2023-03-12 13:33 | Outpatient (CLI) | payer MEDICARE, SELFPAY ==
[2022-10-18 18:04] VITALS: BMI 15.1
[2023-03-12 14:42] LABS: Hemoglobin A1C% w Est Avg Glu 7.7 % (4.0-6.0)
[2023-03-12 15:01] LABS: BUN Creatinine Ratio 27.7 (6-22); Blood Urea Nitrogen 28 mg/dL (9-20); Calcium 8.9 mg/dL (8.4-10.2); Carbon Dioxide 30 mmol/L (22-32); Chloride 103 mmol/L (98-107); Estimated Glomerular Filt Rate > 60 mL/min (>60); Glucose 110 mg/dL (80-110); HEMOLYSIS < 15 (0-50); Potassium 4.9 mmol/L (3.4-5.1); Sodium 139 mmol/L (137-145)
== END ==
PROVIDERS: PCP Internal Medicine; Referring Provider Internal Medicine; Visit Provider Internal Medicine
DX: E11.9 Type 2 diabetes mellitus without complications (principal); I10 Essential (primary) hypertension
CPT/HCPCS: 36415; 80048; 83036

== ENCOUNTER → 2023-04-16 08:15 | Outpatient (CLI) | payer MEDICARE, SELFPAY ==
[2022-10-18 18:04] VITALS: BMI 15.1
== END ==
PROVIDERS: PCP Internal Medicine; Referring Provider Podiatrist; Visit Provider Surgery
DX: E11.621 Type 2 diabetes mellitus with foot ulcer (principal); L97.512 Non-pressure chronic ulcer of other part of right foot with fat layer exposed; L97.522 Non-pressure chronic ulcer of other part of left foot with fat layer exposed; L53.9 Erythematous condition, unspecified; M79.671 Pain in right foot
CPT/HCPCS: 11042; 73630; 87070; 87075; 87147; 87186; 87205; 99203; 99214

== ENCOUNTER → 2023-04-16 10:25 | Outpatient (CLI) | payer MEDICARE, SELFPAY ==
[2022-10-18 18:04] VITALS: BMI 15.1
--- NOTE | 2023-04-16 10:29 | DI.RAD.S_ITS ---
PROCEDURE: XR FOOT RT MIN 3V INDICATIONS: wound to right foot, hallux and mid foot medial TECHNIQUE: 3 views of the foot were acquired. COMPARISON: None. FINDINGS: Bones: No fractures or dislocations. No visible periostitis or cortical erosion. No suspicious bony lesions. Soft tissues: No tibiotalar joint effusion. Achilles tendon appears normal. Heavy peripheral vascular calcification. No visible soft tissue gas. IMPRESSION: No radiographic evidence of osteomyelitis, however radiographs are insensitive in the early phase, and if there is further concern for osteomyelitis, MR imaging is recommended. Dictated by: Elissa Yates M.D. on 04/16/2023 at 13:19 Approved by: Elissa Yates M.D. on 04/16/2023 at 13:21
== END ==
PROVIDERS: PCP Internal Medicine; Referring Provider Surgery; Visit Provider Surgery
DX: E11.621 Type 2 diabetes mellitus with foot ulcer (principal)
CPT/HCPCS: 73630

== ENCOUNTER → 2023-04-17 14:58 | Outpatient (CLI) | payer MEDICARE, SELFPAY ==
[2022-10-18 18:04] VITALS: BMI 15.1
--- NOTE | 2023-04-17 14:58 | DI.US.S_ITS ---
PROCEDURE: US ARTERIAL DUPLEX LE RT INDICATIONS: CHRONIC WOUND RIGHT FOOT TECHNIQUE: Color and pulse Doppler interrogation was performed of the right lower extremity arterial system, with image documentation. COMPARISON: None. FINDINGS: Common femoral artery: 118.9 cm/sec, with biphasic flow. Deep femoral artery: 94.5 cm/sec, with biphasic flow. Proximal superficial femoral artery: 61.8 cm/sec, with triphasic flow. Mid superficial femoral artery: 82.8 cm/sec, with triphasic flow. Distal superficial femoral artery: 20.0 cm/sec, with biphasic flow. Popliteal artery: 41.6 cm/sec, with monophasic flow. Posterior tibial artery: 19.3 cm/sec, with monophasic flow. Anterior tibial artery/dorsalis pedis: 39.9 cm/sec, with monophasic flow. Loredo-scale imaging description: Focal hemodynamically significant stenosis is present within the distal right superficial femoral artery. Monophasic, dampened waveforms are present below this stenosis. IMPRESSION: 1. Sonographic findings suggesting a focally hemodynamically significant stenosis within the distal right SFA. This finding is likely amenable to percutaneous transluminal angioplasty which may restore blood flow and promote wound healing of the right foot. Please consider consultation with interventional radiology at [facility] to discuss possible therapeutic options (ambulatory referral to interventional radiology). Additionally, CTA with bilateral lower extremity runoff could be used to further characterize findings and plan for therapeutic interventions. Dictated by: Magnolia Rodríguez M.D. on 04/18/2023 at 9:33 Approved by: Magnolia Rodríguez M.D. on 04/18/2023 at 9:36
== END ==
PROVIDERS: PCP Internal Medicine; Referring Provider Podiatrist; Visit Provider Podiatrist
DX: L97.511 Non-pressure chronic ulcer of other part of right foot limited to breakdown of skin (principal); E11.621 Type 2 diabetes mellitus with foot ulcer
CPT/HCPCS: 93926

== ENCOUNTER → 2023-04-24 12:10 | Outpatient (CLI) | payer MEDICARE, SELFPAY ==
[2022-10-18 18:04] VITALS: BMI 15.1
== END ==
PROVIDERS: PCP Internal Medicine; Referring Provider Podiatrist; Visit Provider Surgery
DX: E11.621 Type 2 diabetes mellitus with foot ulcer (principal); L97.512 Non-pressure chronic ulcer of other part of right foot with fat layer exposed; L53.9 Erythematous condition, unspecified; M79.671 Pain in right foot
CPT/HCPCS: 11042; 99213

== ENCOUNTER → 2023-04-26 11:11 | Outpatient (CLI) | payer MEDICARE, SELFPAY ==
[2022-10-18 18:04] VITALS: BMI 15.1
== END ==
PROVIDERS: PCP Internal Medicine; Referring Provider Podiatrist; Visit Provider Surgery
DX: E11.621 Type 2 diabetes mellitus with foot ulcer (principal); L97.512 Non-pressure chronic ulcer of other part of right foot with fat layer exposed; M79.674 Pain in right toe(s); L53.9 Erythematous condition, unspecified
CPT/HCPCS: 99213

== ENCOUNTER → 2023-05-03 14:18 | Outpatient (CLI) | payer MEDICARE, SELFPAY ==
[2022-10-18 18:04] VITALS: BMI 15.1
== END ==
PROVIDERS: PCP Internal Medicine; Referring Provider Podiatrist; Visit Provider Physician Assistant
DX: E11.621 Type 2 diabetes mellitus with foot ulcer (principal); L97.512 Non-pressure chronic ulcer of other part of right foot with fat layer exposed; L53.9 Erythematous condition, unspecified; M79.671 Pain in right foot
CPT/HCPCS: 99213

== ENCOUNTER → 2023-05-07 09:26 | Outpatient (CLI) | payer MEDICARE, SELFPAY ==
[2022-10-18 18:04] VITALS: BMI 15.1
== END ==
PROVIDERS: PCP Internal Medicine; Referring Provider Podiatrist; Visit Provider Surgery
DX: E11.621 Type 2 diabetes mellitus with foot ulcer (principal); L97.512 Non-pressure chronic ulcer of other part of right foot with fat layer exposed; L53.9 Erythematous condition, unspecified; M79.671 Pain in right foot; E11.51 Type 2 diabetes mellitus with diabetic peripheral angiopathy without gangrene
CPT/HCPCS: 11042

== ENCOUNTER → 2023-05-10 10:53 | Outpatient (CLI) | payer MEDICARE, SELFPAY ==
[2022-10-18 18:04] VITALS: BMI 15.1
== END ==
PROVIDERS: PCP Internal Medicine; Referring Provider Podiatrist; Visit Provider Physician Assistant
DX: E11.621 Type 2 diabetes mellitus with foot ulcer (principal); L97.512 Non-pressure chronic ulcer of other part of right foot with fat layer exposed; L53.9 Erythematous condition, unspecified
CPT/HCPCS: 99213

== ENCOUNTER → 2023-05-14 15:13 | Outpatient (CLI) | payer MEDICARE, SELFPAY ==
[2022-10-18 18:04] VITALS: BMI 15.1
== END ==
PROVIDERS: Family Provider Internal Medicine; PCP Internal Medicine; Referring Provider Podiatrist; Visit Provider Surgery
DX: E11.621 Type 2 diabetes mellitus with foot ulcer (principal); L97.412 Non-pressure chronic ulcer of right heel and midfoot with fat layer exposed; L97.518 Non-pressure chronic ulcer of other part of right foot with other specified severity; L73.9 Follicular disorder, unspecified; L89.153 Pressure ulcer of sacral region, stage 3
CPT/HCPCS: 11042; 99213; 99214

== ENCOUNTER → 2023-05-16 10:18 | Outpatient (CLI) | payer MEDICARE, SELFPAY ==
[2022-10-18 18:04] VITALS: BMI 15.1
[2023-05-16 11:53] LABS: BUN Creatinine Ratio 27.3 (6-22); Blood Urea Nitrogen 30 mg/dL (9-20); Calcium 9.6 mg/dL (8.4-10.2); Carbon Dioxide 30 mmol/L (22-32); Chloride 99 mmol/L (98-107); Estimated Glomerular Filt Rate > 60 mL/min (>60); Glucose 152 mg/dL (80-110); HEMOLYSIS < 15 (0-50); Potassium 4.4 mmol/L (3.4-5.1); Sodium 137 mmol/L (137-145)
== END ==
PROVIDERS: Family Provider Internal Medicine; PCP Internal Medicine; Referring Provider Surgery; Visit Provider Surgery
DX: E11.621 Type 2 diabetes mellitus with foot ulcer (principal)
CPT/HCPCS: 36415; 80048

== ENCOUNTER → 2023-05-17 10:12 | Outpatient (CLI) | payer MEDICARE, SELFPAY ==
[2022-10-18 18:04] VITALS: BMI 15.1
--- NOTE | 2023-05-17 10:14 | DI.CT.S_ITS ---
PROCEDURE: CT ANGIO ABD AORTA RUNOFF INDICATIONS: non-healing ulcers of right lower extremity TECHNIQUE: After the administration of intravenous contrast, 2.5 mm sections acquired from T12 to the feet, with optional delayed image acquisition from the knees to the feet. 3-dimensional maximum intensity projection (MIP) coronal and sagittal reformats, and/or 3-dimensional volume rendering reformatting was then performed. For radiation dose reduction, the following was used: automated exposure control. COMPARISON: [facility], CT, THORAX WITH CONTRAST, 04/02/2012, 12:41. [facility], RG, CT THORAX WITH CONTRAST, 05/03/2006, 13:41. FINDINGS: Image quality: Excellent. Extravascular tissues: Left lower lobe patchy consolidation with punctate scattered hyperdense material. Trace bilateral pleural effusions. Interlobular septal thickening. Mild cardiomegaly. Arterial phase imaging limits evaluation of the visceral organs. Liver is normal in size and enhancement. Gallbladder unremarkable . Biliary system is non dilated. Pancreas enhances normally. Spleen is normal in size and enhancement. No adrenal nodules. Kidneys are normal in size and enhancement, without hydronephrosis. Non opacified bowel loops demonstrate normal wall thickness and enhancement. Duodenal diverticulum. No free fluid or air. No retroperitoneal or mesenteric adenopathy. No ventral hernias. Bladder wall thickness is normal. Small bilateral fat containing inguinal hernias. Skin thickening with subcutaneous inflammation and possible small fluid collection in the left lower quadrant measuring 4.9 x 2.3 cm (). Mild prostatomegaly. No acute fractures. No aggressive appearing lytic or blastic osseous lesions. Marked multilevel degenerative changes of the spine with partial osseous fusion of L3-L4. Abdominal aorta: Moderate to marked atherosclerotic calcification of the abdominal aorta without aneurysm. Celiac artery and SMA are patent with moderate to marked atherosclerotic calcification. 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 Right lower extremity: Iliac vessels: Patent with no high-grade stenosis. Moderate to marked atherosclerotic calcification. ECOLOGICAL TECHNICAL OFFICER: Patent with no high-grade stenosis. Moderate calcification. Profunda: Patent with no high-grade stenosis. Moderate to marked atherosclerotic calcification. SFA: Patent with high-grade stenosis/occlusion at the distal SFA-popliteal artery junction. Mild multifocal stenosis. Moderate to marked atherosclerotic calcification. Popliteal: Near complete/complete occlusion with trickle flow in the distal segment, likely reconstituted via geniculate collaterals (4/159-165). Kgdoq-ipj-mikg vasculature: Evaluation for patency is limited due to lack of delayed phase imaging and heavily calcified vessels. TP trunk is occluded versus non-opacified secondary to contrast bolus timing. Left lower extremity: Iliac vessels: Patent with no high-grade stenosis. Moderate to marked atherosclerotic calcification. ECOLOGICAL TECHNICAL OFFICER: Patent with no high-grade stenosis. Mild stenosis secondary to eccentric calcified plaque (4/78). Moderate to marked calcification. Profunda: Patent with no high-grade stenosis. Moderate to marked atherosclerotic calcification. SFA: Patent with no high-grade stenosis. Mild multifocal stenosis. Moderate to marked atherosclerotic calcification. Popliteal: Multifocal moderate to severe stenosis in the proximal segment (4/161 -164). Complete occlusion of the distal segment (4/172) TP trunk: Lxdnb-wee-ptmo vasculature: Evaluation for patency is limited due to lack of delayed phase imaging and heavily calcified vessels. TP trunk appears patent via reconstitution from collaterals. IMPRESSION: 1. Right lower extremity: -high-grade stenosis/occlusion at the distal SFA-popliteal artery junction. -popliteal artery demonstrates near complete/complete occlusion with trickle flow in the distal segment, likely reconstituted via geniculate collaterals. -below the knee vasculature patency is limited due to contrast bolus timing and heavily calcified vessels. 2. Left lower extremity: - moderate to high-grade multifocal stenoses in the proximal popliteal artery. Distal popliteal artery demonstrates complete occlusion. -udhuz-cka-cede vasculature patency is limited due to contrast bolus timing and heavily calcified vessels with reconstitution of the TP trunk. 3. Moderate to marked calcification of the abdominal aorta without aneurysm. Celiac artery and SMA are patent. 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 4. Left lower lobe patchy consolidation with punctate scattered hyperdense material which is new compared to prior CT from March 2012. Findings may represent sequela of chronic aspiration/infection. Malignancy is not excluded. Recommend a dedicated contrast enhanced CT of the chest. These findings were discussed with the patient via the telephone. Dictated by: Susy Arguello M.D. on 05/17/2023 at 11:15 Approved by: Susy Arguello M.D. on 05/17/2023 at 12:10
== END ==
PROVIDERS: Family Provider Internal Medicine; PCP Internal Medicine; Referring Provider Surgery; Visit Provider Surgery
DX: E11.621 Type 2 diabetes mellitus with foot ulcer (principal); L97.412 Non-pressure chronic ulcer of right heel and midfoot with fat layer exposed; L97.518 Non-pressure chronic ulcer of other part of right foot with other specified severity; I70.201 Unspecified atherosclerosis of native arteries of extremities, right leg; I70.202 Unspecified atherosclerosis of native arteries of extremities, left leg; I70.92 Chronic total occlusion of artery of the extremities; I70.0 Atherosclerosis of aorta; I51.7 Cardiomegaly; K57.10 Diverticulosis of small intestine without perforation or abscess without bleeding; N40.0 Benign prostatic hyperplasia without lower urinary tract symptoms; K40.20 Bilateral inguinal hernia, without obstruction or gangrene, not specified as recurrent; Z98.1 Arthrodesis status
CPT/HCPCS: 75635

== ENCOUNTER → 2023-05-17 14:22 | Outpatient (CLI) | payer MEDICARE, SELFPAY ==
[2022-10-18 18:04] VITALS: BMI 15.1
== END ==
PROVIDERS: Family Provider Internal Medicine; PCP Internal Medicine; Referring Provider Podiatrist; Visit Provider Physician Assistant
DX: E11.621 Type 2 diabetes mellitus with foot ulcer (principal); L97.412 Non-pressure chronic ulcer of right heel and midfoot with fat layer exposed; L97.518 Non-pressure chronic ulcer of other part of right foot with other specified severity; I70.201 Unspecified atherosclerosis of native arteries of extremities, right leg; I70.202 Unspecified atherosclerosis of native arteries of extremities, left leg; I70.92 Chronic total occlusion of artery of the extremities; I70.0 Atherosclerosis of aorta; I51.7 Cardiomegaly; K57.10 Diverticulosis of small intestine without perforation or abscess without bleeding; N40.0 Benign prostatic hyperplasia without lower urinary tract symptoms; K40.20 Bilateral inguinal hernia, without obstruction or gangrene, not specified as recurrent; Z98.1 Arthrodesis status; L97.516 Non-pressure chronic ulcer of other part of right foot with bone involvement without evidence of necrosis; L89.150 Pressure ulcer of sacral region, unstageable
CPT/HCPCS: 75635; 99213

== ENCOUNTER → 2023-05-20 10:26 | Outpatient (CLI) | payer MEDICARE, SELFPAY ==
[2022-10-18 18:04] VITALS: BMI 15.1
== END ==
PROVIDERS: Family Provider Internal Medicine; PCP Internal Medicine; Referring Provider Podiatrist; Visit Provider Surgery
DX: E11.621 Type 2 diabetes mellitus with foot ulcer (principal); L97.412 Non-pressure chronic ulcer of right heel and midfoot with fat layer exposed; L89.153 Pressure ulcer of sacral region, stage 3; L97.514 Non-pressure chronic ulcer of other part of right foot with necrosis of bone; I10 Essential (primary) hypertension
CPT/HCPCS: 11042; 11044; 87070; 87077; 87147; 87186; 87205; 99212; 99214

== ENCOUNTER → 2023-05-23 11:09 | Outpatient (CLI) | payer MEDICARE, SELFPAY ==
[2022-10-18 18:04] VITALS: BMI 15.1
== END ==
PROVIDERS: PCP Internal Medicine; Referring Provider Podiatrist; Visit Provider Surgery
DX: E11.621 Type 2 diabetes mellitus with foot ulcer (principal); L97.516 Non-pressure chronic ulcer of other part of right foot with bone involvement without evidence of necrosis; L97.412 Non-pressure chronic ulcer of right heel and midfoot with fat layer exposed; L53.9 Erythematous condition, unspecified; L89.150 Pressure ulcer of sacral region, unstageable; R60.0 Localized edema; L97.512 Non-pressure chronic ulcer of other part of right foot with fat layer exposed; I10 Essential (primary) hypertension
CPT/HCPCS: 11042; 11044; 99212; 99213

== ENCOUNTER → 2023-05-24 10:16 | Outpatient (CLI) | payer MEDICARE, SELFPAY ==
[2022-10-18 18:04] VITALS: BMI 15.1
--- NOTE | 2023-05-24 10:17 | DI.MRI.S_ITS ---
PROCEDURE: MR FOOT RT WO/W CON INDICATIONS: right great toe ulcer with bone exposed TECHNIQUE: Noncontrast sagittal T1 spin echo and T2 fast spin echo with fat saturation, long-axis T1 spin echo and T2 fast spin echo with fat saturation; short-axis T1 spin echo, proton density fast spin echo, and T2 fast spin echo with fat saturation through the forefoot. Post-contrast short axis, long axis, and sagittal T1 spin echo with fat saturation through the forefoot. COMPARISON: [facility], CR, XR FOOT RT MIN 3V, 04/16/2023, 10:33. FINDINGS: Image quality: Excellent. Bones and joints: There is mild ill-defined STIR signal elevation and enhancement within the distal phalanx of the 1st digit as well as the middle, proximal, and distal phalanxes of the 2nd digit. Soft tissues: There is moderate diffuse subcutaneous T2 signal elevation within the 1st and 2nd digits, as well as the midfoot and forefoot, predominantly dorsally, consistent with cellulitis. No focal fluid collection is present. IMPRESSION: 1. Osteomyelitis of the distal phalanx of the 1st digit. 2. Possible 2nd digit osteomyelitis. 3. Diffuse soft tissue cellulitis without focal abscess. Dictated by: Pancho Urias M.D. on 05/24/2023 at 12:00 Approved by: Pancho Urias M.D. on 05/24/2023 at 12:04
== END ==
PROVIDERS: PCP Internal Medicine; Referring Provider Surgery; Visit Provider Surgery
DX: E11.621 Type 2 diabetes mellitus with foot ulcer (principal); L97.516 Non-pressure chronic ulcer of other part of right foot with bone involvement without evidence of necrosis; E11.69 Type 2 diabetes mellitus with other specified complication; M86.9 Osteomyelitis, unspecified; L03.031 Cellulitis of right toe
CPT/HCPCS: 73720; A9579

== ENCOUNTER → 2023-05-27 14:10 | Outpatient (CLI) | payer MEDICARE, SELFPAY ==
[2022-10-18 18:04] VITALS: BMI 15.1
== END ==
PROVIDERS: PCP Internal Medicine; Referring Provider Podiatrist; Visit Provider Surgery
DX: E11.621 Type 2 diabetes mellitus with foot ulcer (principal); L97.412 Non-pressure chronic ulcer of right heel and midfoot with fat layer exposed; I10 Essential (primary) hypertension; E78.5 Hyperlipidemia, unspecified; L53.9 Erythematous condition, unspecified; L97.516 Non-pressure chronic ulcer of other part of right foot with bone involvement without evidence of necrosis; L89.150 Pressure ulcer of sacral region, unstageable; L97.512 Non-pressure chronic ulcer of other part of right foot with fat layer exposed
CPT/HCPCS: 11042; 99215

== ENCOUNTER → 2023-05-29 14:20 | Outpatient (CLI) | payer MEDICARE, SELFPAY ==
[2022-10-18 18:04] VITALS: BMI 15.1
== END ==
PROVIDERS: PCP Internal Medicine; Referring Provider Podiatrist; Visit Provider Surgery
DX: E11.621 Type 2 diabetes mellitus with foot ulcer (principal); L97.516 Non-pressure chronic ulcer of other part of right foot with bone involvement without evidence of necrosis; L97.512 Non-pressure chronic ulcer of other part of right foot with fat layer exposed; L89.150 Pressure ulcer of sacral region, unstageable; R60.0 Localized edema; L53.9 Erythematous condition, unspecified
CPT/HCPCS: 99213

== ENCOUNTER → 2023-06-03 14:28 | Outpatient (CLI) | payer MEDICARE, SELFPAY ==
[2022-10-18 18:04] VITALS: BMI 15.1
== END ==
PROVIDERS: PCP Internal Medicine; Referring Provider Podiatrist; Visit Provider Physician Assistant
DX: E11.621 Type 2 diabetes mellitus with foot ulcer (principal); L97.516 Non-pressure chronic ulcer of other part of right foot with bone involvement without evidence of necrosis; L97.412 Non-pressure chronic ulcer of right heel and midfoot with fat layer exposed; L53.9 Erythematous condition, unspecified; L89.150 Pressure ulcer of sacral region, unstageable; R60.0 Localized edema
CPT/HCPCS: 99213

== ENCOUNTER → 2023-06-06 13:05 | Outpatient (CLI) | payer MEDICARE, SELFPAY ==
[2022-10-18 18:04] VITALS: BMI 15.1
== END ==
PROVIDERS: PCP Internal Medicine; Referring Provider Podiatrist; Visit Provider Surgery
DX: E11.621 Type 2 diabetes mellitus with foot ulcer (principal); I10 Essential (primary) hypertension; L97.516 Non-pressure chronic ulcer of other part of right foot with bone involvement without evidence of necrosis; L97.412 Non-pressure chronic ulcer of right heel and midfoot with fat layer exposed; L89.150 Pressure ulcer of sacral region, unstageable; R60.0 Localized edema; L53.9 Erythematous condition, unspecified
CPT/HCPCS: 11042; 11044

== ENCOUNTER → 2023-06-10 13:53 | Outpatient (CLI) | payer MEDICARE, SELFPAY ==
[2022-10-18 18:04] VITALS: BMI 15.1
== END ==
PROVIDERS: PCP Internal Medicine; Referring Provider Podiatrist; Visit Provider Surgery
DX: E43 Unspecified severe protein-calorie malnutrition (principal); I69.391 Dysphagia following cerebral infarction; E11.621 Type 2 diabetes mellitus with foot ulcer; L97.412 Non-pressure chronic ulcer of right heel and midfoot with fat layer exposed; I73.9 Peripheral vascular disease, unspecified; L89.153 Pressure ulcer of sacral region, stage 3; L97.514 Non-pressure chronic ulcer of other part of right foot with necrosis of bone; M86.171 Other acute osteomyelitis, right ankle and foot; R22.2 Localized swelling, mass and lump, trunk
CPT/HCPCS: 11042; 11044; 99213; 99214

== ENCOUNTER 2023-06-13 13:21 | Day surgery (SDC) | payer MEDICARE, SELFPAY ==
[2022-10-18 18:04] VITALS: BMI 15.1
[2023-06-12 10:35] VITALS: BMI 18.3
[2023-06-13] VITALS (12 sets, daily range): BP systolic 102–158; BP diastolic 26–70; PULSE 72–90; RESP 16–22; TEMP 36.4–37.1; O2SAT 95–98; BMI 18.3
--- NOTE | 2023-06-13 | PATH_ITS ---
[facility] Accession Number: [id number] No. of containers..01 Tissue . 01 Material submitted: . body - LEFT LOWER QUADRANT MASS . 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 MRV 06/28/2023 1117 Local . 01 Comment: A Congo red stain is performed to identify amyloid, with the control stained appropriately, on block A4, and is negative for apple-green birefringence, ruling against amyloid deposition. This stain, as well as the corresponding H/E, are also reviewed by Dr. Yudelka Elliott, who concurs with the given interpretation. . 01 Electronically signed: . Yuni Norman MD, Pathologist NPI- [id number] . 01 Gross description: . The specimen is received in formalin, labeled with the patient's name, , and left lower quadrant mass, and consists of an unoriented ellipse of skin measuring 10.2 x 5.4 x 3.6 cm. The cutaneous surface has a linear incision measuring 7.1 cm in length by 0.1 cm in diameter. The margins are inked blue. The specimen is serially sectioned into 18 slices to reveal a yellow, rough, firm area within slices 1-13 and measuring 4.8 x 4.2 x 3.5 cm and grossly approaching the blue-inked margin. The remaining cut surface is yellow, soft, and unremarkable. Street Cleaner sections are submitted as follows: A1: Street Cleaner slice 3 with lesion. A2: Street Cleaner slice 7 with lesion. A3: Street Cleaner slice 9 with lesion. A4: Street Cleaner slice 13 with lesion. A5: Street Cleaner slice 16, no lesion. . Case reviewed with Dr. Short. ([id number]) /FRR 06/15/2023 1349 Local . 01 Pathologist provided ICD-10: M79.9 . 01 CPT . 237598 Specimen Comment: A courtesy copy of this report has been sent to [phone] Performed at: 01 [facility] Cytology [address] [place] [address] [address] [facility], [place], [place] [id number] MD Albert Short MD Phone: [phone]
[2023-06-13] MEDS: LACTATED RINGERS 1,000 ML 42 ML IV (14:45)
--- NOTE | 2023-06-13 14:59 | PM.PREOP ---
Pre-operative Note COVID-19 COVID-19 status: Not tested Interval Note History & Physical reviewed/Exam performed by Physician: Yes Changes to H&P: No ASA Class (for procedural sedation): III
--- NOTE | 2023-06-13 15:34 | SUR.OPER ---
Supine on padded OR bed, head on pillow, arms secured on padded arm boards at <90 degrees abduction, legs uncrossed, safety belt at thigh, tape over blanket over lower legs.
[2023-06-13] MEDS: LIDOCAINE 2% W/EPI INJ 20 ML INJ (15:41)
[2023-06-13] MEDS: BUPIVACAINE 0.5% (PF) 10 ML VIAL SUBCUT (15:47)
--- NOTE | 2023-06-13 16:29 | P.OP_ITS ---
Operative Date/Time/Diagnoses Date of procedure: 06/13/23 Time of procedure: 16:29 Pre-op diagnosis: Dysphagia and left lower quadrant soft tissue mass Post-op diagnosis: same Procedure & Clinicians Procedure: 1. Percutaneous endoscopic gastrostomy tube placement 2. Wide local excision of left lower quadrant subcutaneous mass Same procedure as scheduled: Yes Surgeon: Alok Mott Anesthesia Type: General Operative Notes Procedure in detail: The patient was brought to the operating room and placed on the table in the supine position. Monitored anesthesia was induced. A time-out was performed. The left upper quadrant was prepped and draped in the usual fashion. Gastroscope was inserted the stomach and the stomach was insufflated. An appropriate location on the abdominal wall was chosen and palpation of the abdominal wall could be directly visualized from within the stomach. Local was injected into the skin and subcutaneous adipose tissue. The needle was inserted under direct vision and the wire was introduced and grasped with the snare. The scope was then withdrawn bringing the wire with it. We then attached the PEG tube and pulled the PEG into position. The endoscope was inserted back into the stomach and a photograph was taken of the PEG tube bumper in good position. We then trimmed the external portion of the PEG tube and applied the bumper, the clamp and the cap. A dressing was applied. We then prepped and draped the left lower quadrant for the wide local excision. We made a 15 cm transverse incision over the mass and dissected down through the dermis to find a strange orange-yellow dry, fibrous substance. There was no obv ious capsule we then opted to ellipse the entire area abnormal tissue out. We dissected down to the fascia. The edges the wound now appeared to be healthy normal adipose tissue. Injected some additional local into the tissue. We then closed the incision in layers using multiple interrupted 3-0 Vicryl sutures in the subcutaneous adipose tissue followed by multiple interrupted dermal sutures again with 3-0 Vicryl. The skin was then closed with a running 4-0 Monocryl subcuticular stitch. Steri-Strips and dressings were applied. EBL: 10 mL Specimen: Left lower quadrant subcutaneous mass Post-operative Condition: stable Disposition: PACU
--- NOTE | 2023-06-13 18:55 | PC.NURSE ---
Patient has a dressing from lypoma removal that is cdi, and peg tube placment dressing is cdi. Patient is alert and oriented x3. He has a juni of having tonsil and partial tongue removal from Cancer. He is resting comfortably.
[2023-06-13] MEDS: HYDROCODONE/ACET 5/325 TABLET 1 TAB PO (20:23)
[2023-06-14 01:36] VITALS: BP 138/57; PULSE 63; RESP 17; TEMP 36.7; O2SAT 99
--- NOTE | 2023-06-14 01:37 | PC.NURSE ---
Pt is unable to void so this commercial lines underwriter did a bladder scan and got 243mL. RN notified and aware.
[2023-06-14 05:10] VITALS: BP 121/53; PULSE 95; RESP 17; TEMP 36.4; O2SAT 93
[2023-06-14 07:30] VITALS: BP 133/67; PULSE 88; RESP 17; TEMP 36.4; O2SAT 95
--- NOTE | 2023-06-14 11:25 | DIET.CONS ---
Addendum entered by Miguelina Price 06/17/23 11:19: Pt may benefit from consistent carbohydrate formula in SNF or home setting. Pt currently on Jevity 1.2 but also acceptable for Jevity 1.5. Addendum entered by Miguelina Price 06/14/23 17:17: Pt to be NPO with nutrition and hydration needs to be met via enteral nutrition with PEG. Original Note: Dietary Consultation Note Admission Date: 06/13/23 Assessment: 82y M admitted for planned placement of PEG tube for enteral nutrition due to severe protein calorie malnutrition, chronic wounds, hx CVA and partial tongue and tonsil removal due to cancer. Pt with insulin dependent T2DM. Pt followed by wound care team who recc'd placement of PEG tube. Pt admitted in October 2022 for CVA. At that time WRAPPER OPERATOR recc NPO with artificial nutrition due to high risk aspiration on MBSS. Pt declined artificial nutrition and was d/c. Since that time, pt followed by PCP with recorded severe drop in body weight, most notably from February to March 2023, however, pt's weight loss has decelerated since that time but has not increased. Pt is 30% below UBW. Per PCP notes and patient, pt has been severely lowering his insulin use due to poor PO intake. Pt originally taking 45U glargine daily with 1-12U novolog tid. Pt states he only checks his blood sugar q3-4days, has taken one 40U dose of glargine once in the past month and only takes his mealtime insulin sometimes. Upon interviewing pt it is clear he has had meager intake since April with the following dietary consumption: Usual Day: B: Bottled Starbucks Drink (180kcals, 33g CHO, 6g PRO) L: 2 Ensure ONS Drinks (440kcals, 66g CHO, 18g PRO) D: sometimes one more Starbucks Drink Pt tries to eat potato chips every few days. Daily Intake: 800kcals, 30g PRO, 132g CHO meeting 46% calorie needs and 38% protein needs which is inadequate to support weight maintenance or wound healing. Pt at moderate to high risk of refeeding syndrome, recc checking refeeding labs (potassium, magnesium, and phosphorus) bid until tolerating full feeding rate. Recc 100mg thiamine daily for 5 days. Goal: Jevity 1.2 formula given as gravity bolus feeds five times per day: 290mL formula with 150mL free water flushes. Ht: 177.8 cm Wt: 58.06 kg (-19.5% unintentional in 4mo, severe) BMI: 18.3 (severe for age) UBW: 82kg (30% below UBW) Last BM: 06/13/23 (06/13/23 17:22) MNA: 8 Aleksandr Score: 16 Diet: 06/13/23 Dinner General (Regular) Diet Diet Modifications: Nutrition Percent Meal Consumed 10% 06/14/23 09:47 Percent Meal Consumed 50% 06/13/23 18:59 Nutrition Diagnosis: Severe Acute on Chronic Protein Calorie Malnutrition r/t difficulty swallowing aeb pt with 19.5% unintentional weight loss in 4mo (severe), BMI 18.4 (severe for age), MNA on admission 8 (malnourished), MBSS shows aspiration on all textures due to CVA and partial removal of tongue and tonsil due to cancer. Interventions: 1. Recc beginning with 150mL formula gravity feeds with 150mL free water flushes five times daily. Increase formula volume as tolerated up to goal. 2. Check refeeding labs bid and replete per protocol. 3. 100mg thiamine daily x5d to reduce risk of refeeding syndrome 4. HOB elevated >30 degrees for one hour after feed. 5. BG checks per protocol to re-establish insulin needs. EER: 1750kcals (30kcal/kg), 80g PRO (1.4g/kg per PCM and wounds) Pt would benefit from hospital stay until stable on feeds and outside refeeding window with BGs well managed. Electronically Signed by: Miguelina Price 06/14/23 11:25 Clinical Diet[address] [address]
--- NOTE | 2023-06-14 13:21 | P.PN_ITS ---
Subjective Subjective Date Patient Seen: 06/14/23 Time Patient Seen: 13:21 Interval history: Postoperative day 1 status post elective PEG for esophageal dysphagia. No abdominal pain wound drainage overnight. Exam Vital Signs (past 8 hours): - 06/14/23 07:30 Temperature 97.6 F Pulse Rate 88 Respiratory Rate 17 Blood Pressure 133/67 Pulse Oximetry 95 Oxygen Flow Rate 0 Oxygen Delivery Method Room Air Oxygen Flow Rate 0 Narrative Exam Narrative: General cachectic elderly man alert oriented no acute distress Abdomen soft peg tube in place no drainage around it [facility] Medical History (Updated 06/12/23 @ 10:43 by Jeimy Garcia RN) Severe protein-calorie malnutrition Dysphagia as late effect of cerebrovascular accident (CVA) Ischemic cardiomyopathy CVA (cerebral vascular accident) (10/2022) Cholelithiasis Persistent depressive disorder Anemia Hyperlipidemia Skin cancer Type 2 diabetes mellitus with hyperglycemia (09/22/15) Mixed hyperlipidemia (09/22/15) Malignant neoplasm of head, 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) Coronary artery disease Essential hypertension Recurrent major depressive disorder, in partial remission Anxiety Type 2 diabetes mellitus without complication Surgical History (Updated 06/12/23 @ 10:43 by Jeimy Garcia RN) Hx of tonsillectomy History of radical neck surgery (~2011) Status post coronary artery bypass graft (~2005) Family History Father Fam hx-ischem heart disease Mother Family history of Alzheimer's disease Social History marital status: number of children: 1 household members: none lives independently: Yes caregiver/support person: No housing: apartment pets and animals: No education level: college occupational status: other current occupational exposures/hazards: No 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 -dietitian consultation for tube feeds -PEG tube teaching -monitor for refeeding syndrome -PT/OT eval Quality VTE Deep Vein Thrombosis/Pulmonary Embolism Present on Admission: No
[2023-06-14 15:26] LABS: BUN Creatinine Ratio 35.3 (6-22); Blood Urea Nitrogen 30 mg/dL (9-20); Calcium 8.9 mg/dL (8.4-10.2); Carbon Dioxide 34 mmol/L (22-32); Chloride 98 mmol/L (98-107); Estimated Glomerular Filt Rate > 60 mL/min (>60); Glucose 230 mg/dL (80-110); HEMOLYSIS < 15 (0-50); Magnesium 1.9 mg/dL (1.6-2.3); Phosphorous 2.6 mg/dL (2.3-3.7); Potassium 4.7 mmol/L (3.4-5.1); Sodium 134 mmol/L (137-145)
--- NOTE | 2023-06-14 16:47 | CM.DANOTE ---
Addendum entered by ALVIIA Thomas 06/14/23 16:53: previous note signed prematurely- DCP Assessment continued ELECTRIC METER TESTER entered room and introduced self and role. Patient resting in bed. Pt is hard of hearing and prefers to be spoken to on his left side and requested this author speak slowly. Patient reports living home alone. Pt drives locally and not at night. Pt reports it has been increasingly difficult to manage needs at home. Pt reports he hasn't inquired about detention HEIKE/care givers at home because he doesn't know who he would call and struggles to speak over the phone. He reports to this ELECTRIC METER TESTER having no family support. He reports fearing to d/c home due to weakness/struggles to get to the bathroom here. ELECTRIC METER TESTER attempted to explain different statuses for what his insurance would cover for a SNF, it is unclear if he understood this. ELECTRIC METER TESTER attempted to inquire about SNF private pay, pt reports he could not afford it. Pt reported he would want to go to [facility] if possible. Pt reports he has an appt in [place], unclear name of procedure [facility] for a ulcer procedure on Saturday. Pt reports his neighbor was going to drive him, but his neighbor could not stay with him to support him. Pt reports no Hx of HH. Pt mid conversation reported that if we were going to d/c him home he was going to kill himself. I am going to . I'm going to do it. I have a fool proof way to do it. Pt reported he has 20 guns in his house. Pt reported that it was none of this ELECTRIC METER TESTER business how he would kill himself. Pt says he is going to go home to . Pt became agitated and asked this ELECTRIC METER TESTER to leave his room. ELECTRIC METER TESTER updated nurse, charge histotechnologist, CM director, and surgeon on patient's suicidal ideation and d/c concerns. ELECTRIC METER TESTER contacted [facility] due to patient's upcoming d/c for a [facility]. ELECTRIC METER TESTER spoke with Harmony at intake and provided necessary information. Minh Pitts (p [phone]) assigned to the case. (f [phone]). Per dietary, it would be appropriate to keep patient for a few more days due to making sure patient is able to tolerate feeds. Surgeon agreed. Cancelled d/c. ELECTRIC METER TESTER attempted to contact JACKIE x2, lvm to alert to cancelling dc. ELECTRIC METER TESTER spoke with Genesis at . Agreed to review with available information. ELECTRIC METER TESTER coordinated with surgeon/UR nurse frequently throughout the day. ELECTRIC METER TESTER spoke with intake at [facility]. They have not worked with patient previously. Will keep an eye out for official referral. Would need to know dietary order/who the following provider would be. Information unavailable in chart at this time. JACKIE Wilkinson arrived at and spoke with patient. No hold now, Minh recommended [facility] voluntary services at d/c. Call [facility] at [phone] for a voluntary referral. Per Minh, patient has a supportive local son. Plan: 1) pending insurance coverage/SNF acceptance, patient may dc to [facility]. 2) home with HH/[facility]/PP caregivers. Follow closely. ALIVIA Thomas Original Note: DCP Assessment Note patient is a 82yo M here following PEG tube placement with Dr. Mott on 06.13.23 PCP Jennifer Donis Medicare and self pay ELECTRIC METER TESTER reviewed EMR. per chart, dc order in. Nursing concerned with who is teaching feeds. Discharge Planning/Care Management CM Discharge Assessment Start: 06/14/23 15:56 Freq: Status: Active Protocol: Document 06/14/23 15:56 SL (Rec: 06/14/23 16:47 [id number]) Discharge Planning Assessment Assigned Paint Roller Covermaker ALIVIA Granados Advance Directives? No Advance Directives on File No History Provided By Patient,Medical Record Prior Living Arrangements House Household Members none Type of transporation used prior to Drives own vehicle admit Comment drives locally and not at night Comment patient reports it has been increasingly difficult to manage ADLs/IADLs. Barriers to Discharge Yes Comment insurance auth, tolerate feeds , weakness, lack of comprehensive home supports, passive suicidal ideations Transportation Arrangement pending Referrals Initiated Residential If patient plan is SNF: Has PASSR been No completed? Comment SDC status currently. UR team will continue to monitor for changes in medical status SNF/HH Preference [facility] Has Agency SNF been contacted Yes Comment [facility] from reviewing Whiteboard Updated in Patient Room with Yes name and ext. # of Paint Roller Covermaker Review Status In Process Next Review Type Continued Stay Review Pre-Anesthesia Assessment Start: 06/10/23 12:42 Freq: Status: Complete Protocol: Document 06/12/23 10:35 CAB (Rec: 06/12/23 10:48 CAB [id number]) Pre-Anesthesia Assessment Patient Information Reviewed Via Chart Review Primary Care Provider Ryan Rodriguez Seen Specialist in Last 12 Months Yes Specialist Seen General surgeon,Other Comment Wound Care Clinic Primary Language Belarusian Preferred Language [place]ian [employer] Recreational Facilities Manager Required No Height 177.8 cm Weight 58.06 kg Body Mass Index (BMI) 18.3 Comment Hx of CVA 10/2022 Anesthesia Review Requested No Thread Puller No alcohol intake current Smoking Status Never smoker Substance Use Type does not use Pain Present Pain Reported Musculoskeletal Symptoms Abnormal Gait Patient is completely paralyzed or No completely immobile Gait/Transferring Impaired Mental Status Oriented to own ability Is patient on oxygen? No Hx Sleep Apnea No Currently Taking a Beta Aleida Yes: Metoprolol Anti-Coagulant Therapy No Cardiac Testing No Hx Pacemaker/ICD No Pacemaker Rep Required? No Diet Type At Home Dysphagia Diabetes Yes HgbA1C 7.7 Date 03/12/23 Received a COVID vaccine? Yes Marital Status Lives With none Patient Discharge Plan Description Return Home Do You Have Any Spiritual Beliefs That No May Affect Your HC Choices? Do You Have Any Cultural Practices That No May Affect Your HC Choices? Advance Directives? No Advance Directives on File No Power of Reporting Manager No
--- NOTE | 2023-06-14 16:59 | DIET.CONS2 ---
Dietary Inpatient Consultation Note Admission Date: Diet ordered General Diet, however, pt with new PEG tube due to severe oropharyngeal phase dysphagia with severely impaired airway protection and severely limited UES opening per speech therapy 4w ago. Pt allowed pureed solids and honey thick liquids until PEG placed. PEG now placed, pt to be NPO with total nutrition via PEG to bypass oral access in order to reduce risk of aspiration. RD spoke to Dr. Vera who agrees with diet change to NPO. Pt is FULL CODE. Diet: 06/14/23 16:58 NPO Diet Diet Modifications: NPO Type: NPO except for Ice Chips Nutrition Percent Meal Consumed 10% 06/14/23 09:47 Percent Meal Consumed 50% 06/13/23 18:59 Electronically Signed by: Miguelina Price 06/14/23 16:59 Clinical Dietitian [address] [address]
--- NOTE | 2023-06-14 17:20 | PT-IP ANOTE ---
Pt eval received and EMR reviewed. attempted to see pt but pt with mental health worker for a visit and is not ready for PT. will f/u.
[2023-06-14 18:57] LABS: Add Manual Diff / Slide Review NO; Basophils Absolute Auto 0 /uL (0-100); Basophils Percent Auto 0.4 % (0-2); Eosinophils Absolute Auto 0 /uL (0-450); Eosinophils Percent Auto 0.3 % (2-4); Hematocrit 31.6 % (41-53); Hemoglobin 9.9 g/dL (13.5-17.5); Lymphocytes Absolute Auto 700 /uL (1100-4500); Lymphocytes Percent Auto 5.5 % (25-40); Mean Corpuscular HGB Conc 31.3 % (30-36); Mean Corpuscular Hemoglobin 21.9 PG (26-34); Monocytes Absolute Auto 900 /uL (0-900); Monocytes Percent Auto 7.2 % (3-14); Neutrophils Absolute Auto 10600 /uL (1500-7000); Neutrophils Percent Auto 86.6 % (50-75); Platelet Count 270 X10^3/uL (150-400); Red Blood Cell Count 4.51 X10^6/uL (4.5-5.9); Red Cell Distribution Width 18.5 % (11.6-14.8); White Blood Cell Count 12.2 X10^3/uL (4.5-11.0)
[2023-06-14 19:29] LABS: Alanine Aminotransferase 21 IU/L (<50); Albumin 2.9 g/dL (3.5-5.0); Albumin Globulin Ratio 0.9 (1.0-2.8); Alkaline Phosphatase 82 U/L (38-126); Aspartate Aminotransferase 28 IU/L (17-59); BUN Creatinine Ratio 36.7 (6-22); Bilirubin Total 0.7 mg/dL (0.2-1.3); Blood Urea Nitrogen 29 mg/dL (9-20); Calcium 8.7 mg/dL (8.4-10.2); Carbon Dioxide 32 mmol/L (22-32); Chloride 97 mmol/L (98-107); Estimated Glomerular Filt Rate > 60 mL/min (>60); Globulin 3.3 g/dL (1.7-4.1); Glucose 207 mg/dL (80-110); HEMOLYSIS < 15 (0-50); Potassium 3.8 mmol/L (3.4-5.1); Sodium 133 mmol/L (137-145); Total Protein 6.2 g/dL (6.3-8.2)
--- NOTE | 2023-06-14 19:32 | PC.NURSE ---
Peg tube: Instructed to give peg tube teaching. Discussed feedings w/doing bolus feeding w/syringe. Okayed w/Miguelina RD. Pt instructed on wound care for peg tube. With assist he was able to give tube feeding w/out problems. Tolerated well, no nausea or problems. Later found an order it was to be run on the pump and then after that the feeding tube order was cancelled. Miguelina is no longer here to clarify order. Will contact her in the AM. Pt much less anxious after doing tube feeding for the first time. We also discussed wound care.
[2023-06-14 20:00] VITALS: BP 116/52; PULSE 69; RESP 16; TEMP 36.6; O2SAT 99
[2023-06-15] VITALS: BP 118/60; PULSE 74; RESP 16; TEMP 36.5; O2SAT 96
[2023-06-15 05:45] LABS: BUN Creatinine Ratio 33.8 (6-22); Blood Urea Nitrogen 25 mg/dL (9-20); Calcium 9.3 mg/dL (8.4-10.2); Carbon Dioxide 33 mmol/L (22-32); Chloride 98 mmol/L (98-107); Estimated Glomerular Filt Rate > 60 mL/min (>60); Glucose 146 mg/dL (80-110); HEMOLYSIS < 15 (0-50); Phosphorous 2.9 mg/dL (2.3-3.7); Potassium 4.2 mmol/L (3.4-5.1); Sodium 137 mmol/L (137-145)
[2023-06-15 06:00] VITALS: BP 122/68; PULSE 72; RESP 16; TEMP 36.4; O2SAT 98
[2023-06-15 08:00] VITALS: BP 136/50; PULSE 66; RESP 16; TEMP 36.2; O2SAT 96
--- NOTE | 2023-06-15 09:55 | PT.IIE ---
Current Diagnoses Unspecified severe protein-calorie malnutrition (06/13/23) Dysphagia following cerebral infarction (06/13/23) Other specified soft tissue disorders (06/13/23) Other dysphagia (06/13/23) Surgery Performed Operation Date: 06/13/23 14:45 Actual Procedures p Peg Tube Insertion & - Alok Mott MD s lower left quadrant wide local excision(Left) - Alok Mott MD Surgical History (Last Updated 06/12/23 @ 10:43 by Jeimy Garcia RN) History of radical neck surgery (~2011) Hx of tonsillectomy Status post coronary artery bypass graft (~2005) Medical History (Last Updated 06/12/23 @ 10:43 by Jeimy Garcia RN) Anemia Anxiety Cholelithiasis Coronary artery disease CVA (cerebral vascular accident) (10/2022) Dysphagia as late effect of cerebrovascular accident (CVA) Essential hypertension Hyperlipidemia Ischemic cardiomyopathy Malignant neoplasm of head, 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) Mixed hyperlipidemia (09/22/15) Persistent depressive disorder Recurrent major depressive disorder, in partial remission Severe protein-calorie malnutrition Skin cancer Type 2 diabetes mellitus with hyperglycemia (09/22/15) Type 2 diabetes mellitus without complication Physical Therapy Inpatient Evaluation/Re-Eval M1 PT/OT-IP Prior Functional Status Start: 06/15/23 13:13 Freq: NEEDED Status: Active Protocol: Document 06/15/23 09:55 AB (Rec: 06/15/23 13:36 AB [id number]) Medical Review Prior Functional Status Medical History Reviewed Yes Communication able to make needs known Mobility and Gait pt stated that he was modified independent with all mobilities and ambulation without AD indoors but tends to furniture cruise; uses a FWW for outdoor mobility. pt stated that he do things slow but lately, has more difficulty doing things. Social History Household Members none Living Arrangements Apartment/Condo Number of Floors (Floors) One Floor Number of Stairs To Enter/Railing? no steps to enter Home Environment High Toilet,Tub/Shower Home Equipment Grab Bars In Shower Additional Social History Comment pt stated that he had not taken a shower for ~ 4 months but does sponge bathe/uses wet wipes M2 PT-IP Current Condition Start: 06/15/23 13:13 Freq: NEEDED Status: Active Protocol: Document 06/15/23 09:55 AB (Rec: 06/15/23 13:36 [id number]) Physical Therapy Current Condition Current Condition Evaluation Date 06/15/23 Treatment Diagnosis s/p PEG tube placement; difficulty in walking Onset Date 06/13/23 M3 PT-IP Subjective Start: 06/15/23 13:13 Freq: NEEDED Status: Active Protocol: Document 06/15/23 09:55 AB (Rec: 06/15/23 13:36 [email or web address]) Subjective Physical Therapy Visit Type Type Initial Evaluation Visit Start Time 09:55 Visit Stop Time 10:25 Total Visit Minutes 30 Number of RADIOISOTOPE TECHNOLOGIST Visits 0 Therapy Pain Assessment Pain When Pain Assessed At Rest Pain Present Pain Present Pain Reported Location Right Foot Intensity 7 Scale Used Numeric (0 - 10) Pain Management Techniques Distraction,Modification of Treatment,Re-positioning, Timing of Activity with Medications M4 PT-IP Mobility and Gait Start: 06/15/23 13:13 Freq: NEEDED Status: Active Protocol: Document 06/15/23 09:55 AB (Rec: 06/15/23 13:36 [email or web address]) PT-Bed Mobility Assessment Supine to Sit Supine to Sit Maximum Assistance,Head of Bed Elevated,Bedrails Sit to Supine Sit to Supine Maximum Assistance,Head of Bed Elevated,Bedrails PT-Transfer Assessment Sit to and From Stand Sit to and from Stand Maximum Assistance,1 Person Assistance,Use of Upper Extremities Equipment Transfer Assistive Device Gait Belt,Front Wheeled Walker Orthotic/Prosthetic Devices or Brace: No Comments Mobility Comments pt supine in bed. NAC just left pt's room. pt easily gets agitated and has c/o taking so long to get assistance. talked to pt to calm down. pt agreed to do PT but tends to direct his own care. pt stated that he cannot move and ambulate. informed pt that NAC reported that she just walked pt to the toilet this morning. pt became agitated. redirected pt and pt calmed down. obtained PLOF and home set up. pt completed supine to sit max A and max cues with HOB elevated. pt keeps saying that he cannot do it and needs help. asked pt to try to do movement first before PT can assist. pt gets agitated. pt sat on EOB CGA. completed sit to stand max A and cues. pt stated that he is going to fall. pt ambulated ~ 2 ft forward with LOB max A and stated that he cannot walk farther due to increase R foot pain. pt stepped backwards ~ 2 ft using FWW max A. pt sat on EOB. completed sit to supine max A. positioned pt in bed. call light and table placed within reach. Nurse came in to put in bed foot cradle on pt's bed. left pt with nurse. Gait Assessment Gait Gait Assistance Required: Maximum Assistance,1 Person Assist Distance (Feet) 4 Able to Maintain Weight Bearing Status Yes During Gait Assistive Devices Assistive Device Gait Belt,Front Wheeled Walker Orthotic/Prosthetic Devices or Brace: No Gait Deviations General Gait Pattern Antalgic,Decreased Stride Length,Decreased Feet Clearance,Step-to Gait Factors Limiting Gait Function Factors Limiting Gait Function Decreased Activity Tolerance, Decreased Strength,Difficulty Following Directions,Pain,Poor Balance,Poor Safety Awareness PT-Balance Assessment Sitting Balance and Reactions Static Sitting Balance Ability Good Dynamic Sitting Balance Ability Fair Standing Balance and Reactions Static Standing Balance Ability Poor Dynamic Standing Balance Ability Poor Device Used FWW M5 PT-IP Objective Assessments Start: 06/15/23 13:13 Freq: NEEDED Status: Active Protocol: Document 06/15/23 09:55 AB (Rec: 06/15/23 13:36 AB [email or web address]) Orientation Orientation/Cognition Level of Alertness Alert Orientation Name,Place,Situation Language Function Ability Hard of Hearing Safety Awareness Decreased Safety Awareness Strength Lower Extremity Strength Assessment Bilaterally Impaired Hip 4-/5 Knee 4-/5 Muscle Tone Muscle Tone WNL Yes M6 PT-IP Treatment Start: 06/15/23 13:13 Freq: NEEDED Status: Active Protocol: Document 06/15/23 09:55 AB (Rec: 06/15/23 13:36 AB [email or web address]) Physical Therapy Treatment Education Education Provided Safety M7 PT-IP Assessment and Plan Start: 06/15/23 13:13 Freq: NEEDED Status: Active Protocol: Document 06/15/23 09:55 AB (Rec: 06/15/23 13:36 AB [email or web address]) PT Summary Assessment and Plan Potential Rehabilitation Potential Fair Status of Condition at Evaluation Evolving Summary Impairments Pain,ROM,Strength,Balance, Coordination,Sensation,Tone, Cognition,Bed Mobility, Transfers,Gait,Activity Tolerance Assessment Summary pt is an 82 y/o M who has dysphagia and LLQ soft tissue mass and underwent sx for PEG tube placement and excision of mass. pt with chronic R foot wound and c/o 01/14 contributing to mobility difficutly. pt requiring max A with all tasks using fWW and will require SNF rehab to improve strength and function. will continue to assess. Goals Bed Mobility Goal Standby Assistance Transfer Goal Standby Assistance,Front Wheeled Walker Gait Goal Standby Assistance,Front Wheel Walker Gait Distance 30 Other Goals improve bed mobility, transfers and ambulation using LRAD/without AD 150 ft SBA Days to Meet Goals 10 Frequency of Treatment Frequency Of Treatment Once a Day Treatment Plan Physical Therapy Treatment Plan Bed Mobility Training,Transfer Training,Gait Training, Therapeutic Exercise,Balance Retraining,Post Op Education, Discharge Planning,Hot or Cold Pack,Neuromuscular Re-ed, Coordination Retraining,Manual Therapy Precautions Abdominal Surgery Precautions Log Roll,Lifting Restrictions, Gait Belt above Incisional Area Recommendations To Nursing Amount of Assist Needed 1 Person Assist Discharge Recommendations PT Discharge Recommendations SNF Rehab Transportation Needs at Discharge Wheelchair/Cabulance
--- NOTE | 2023-06-15 11:38 | PC.NURSE ---
Late entry: Pt reported suicidal comments to Mexican Food Machine Tender, she was unable to do a full assessment as the pt had kicked her out. Spoke with pt. He sees psych as needed. He states: She ask if I can't get help what would I do. I'm an old man, I told her I'd head up to heaven, not because I'm going to kill myself but if I can't get any care I will .. Pt reports no suicide plans. He does have guns at home, they are kept in a gun locker. He has a friend who have been helping pt to sell the guns, he has already sold 3 of them. SI knew she was going to go and tell everyone else, sheesh. The last time he saw his psych was about a year ago. Her name was Dr. Rodrigues, she left her practice. He and Dr. Rodriguez have been working on getting him a new doctor. Pt denies any suicidal ideation, has no plan in place. Coordinator Eduardo Notifed of Care managements findings and this writers findings. Dr. Vera is chemicals fermentation operator for Dr. Mott. Dr. Vera called and notified of care managements comments and this writers finding. No need for suicide precautions at this time.
--- NOTE | 2023-06-15 11:58 | PM.PN.1 ---
Subjective Subjective Date Patient Seen: 06/15/23 Interval history: Don complains of foot pain. He does not feel like he is able to go home because he can not get up and walk. Exam Vital Signs (past 8 hours): - 06/15/23 06:00 06/15/23 08:00 Temperature 97.6 F 97.2 F L Pulse Rate 72 66 Respiratory Rate 16 16 Blood Pressure 122/68 136/50 L Pulse Oximetry 98 96 Oxygen Flow Rate 0 0 Oxygen Delivery Method Room Air Oxygen Flow Rate 0 Const Nutritional Appearance: cachectic Orientation: awake Objective Labs 06/14/23 18:52 06/15/23 05:15 Labs: Laboratory Results - last 24 hr 06/14/23 06/14/23 06/15/23 14:55 18:52 05:15 WBC 12.2 H RBC 4.51 Hgb 9.9 L Hct 31.6 L MCV 70.0 L MCH 21.9 L MCHC 31.3 RDW 18.5 H Plt Count 270 Neut % (Auto) 86.6 H Lymph % (Auto) 5.5 L [place] % (Auto) 7.2 Eos % (Auto) 0.3 L Baso % (Auto) 0.4 Neut # (Auto) 46285 H Lymph # (Auto) 700 L [place] # (Auto) 900 Eos # (Auto) 0 Baso # (Auto) 0 Sodium 134 L 133 L 137 Potassium 4.7 3.8 4.2 Chloride 98 97 L 98 Carbon Dioxide 34 H 32 33 H BUN 30 H 29 H 25 H Creatinine 0.85 0.79 0.74 Estimated GFR > 60 > 60 > 60 BUN/Creatinine Ratio 35.3 H 36.7 H 33.8 H Glucose 230 H 207 H 146 H Calcium 8.9 8.7 9.3 Phosphorus 2.6 2.9 Magnesium 1.9 2.0 Total Bilirubin 0.7 AST 28 ALT 21 Alkaline Phosphatase 82 Total Protein 6.2 L Albumin 2.9 L Globulin 3.3 Albumin/Globulin Ratio 0.9 L [facility] Medical History (Updated 06/12/23 @ 10:43 by Jeimy Garcia RN) Severe protein-calorie malnutrition Dysphagia as late effect of cerebrovascular accident (CVA) Ischemic cardiomyopathy CVA (cerebral vascular accident) (10/2022) Cholelithiasis Persistent depressive disorder Anemia Hyperlipidemia Skin cancer Type 2 diabetes mellitus with hyperglycemia (09/22/15) Mixed hyperlipidemia (09/22/15) Malignant neoplasm of head, 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) Coronary artery disease Essential hypertension Recurrent major depressive disorder, in partial remission Anxiety Type 2 diabetes mellitus without complication Surgical History (Updated 06/12/23 @ 10:43 by Jeimy Garcia RN) Hx of tonsillectomy History of radical neck surgery (~2011) Status post coronary artery bypass graft (~2005) Family History Father Fam hx-ischem heart disease Mother Family history of Alzheimer's disease Social History marital status: number of children: 1 household members: none lives independently: Yes caregiver/support person: No housing: apartment pets and animals: No education level: college occupational status: other current occupational exposures/hazards: No 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 We will work on discharge planning and start feeding him some Jevity through the tube. We will try to get him back on all of his home meds and use his tube as much as possible until he has a place to go. Quality VTE Deep Vein Thrombosis/Pulmonary Embolism Present on Admission: No
--- NOTE | 2023-06-15 12:02 | PC.NURSE ---
Peg Tube teaching: Discussed peg tube dressing and care, discussed general wound care for his other incision. Pt shown how to clamp and unclamp peg tube feeding. Insert syringe, how to pour in feeding and follow with water. Can get meds down the tube as well, follow with water. Will cont peg tube teaching.
--- NOTE | 2023-06-15 12:45 | CM.DPC ---
Addendum entered by Christy Zavaleta R.N. 06/15/23 15:56: Met with patient, and friend, Julio, who transports patient to appointments. Patient is pleasant, alert, hard of hearing. Has been on ensure prior to surgery. Is open to skilled, would prefer [facility], is ok with going to [facility] if needed. Confirmed with Niki at [facility] that they are in [facility] network. Sent her over referral via right fax. Original Note: DCP Cont: Was going to attempt to meet with patient, is currently sleeping. Just read surgeon, Dr. Mott's note. Was going to originally pursue [facility], now patient unable to walk, can't go home. Currently awaiting P.T. notes, have spoken to Choco over at [facility], patient would need an insurance auth. She asked about patient's mental health status, for he had mentioned yesterday, wanting to . DCR has already seen patient, has not mentioned any suicidal ideations today, according to staff. Hospitalist did also mention the possibility of hospice, but patient has no home support. Asked Dr. Goel when she came in to see other patients if she is familiar with this patient, since this is Dr. Rodriguez's patient, and stated, she is not. Awaiting P.T. to work with patient, they were unable to do so yesterday. P: DCP to continue to work on plan. Barrier is that this is an outpatient surgery, has no local family, has limited knowledge of feeding tube. At this time, will need to continue to pursue long-term, and follow up with [facility] Saturday, will send notes as soon as they are completed. Christy Zavaleta RN/Assistant Site Manager
[2023-06-15] MEDS: METOPROLOL IR 25 MG TABLET 12.5 MG TUBE ×2 (13:38→21:52)
[2023-06-15] MEDS: lisinopriL 5 MG TABLET PO (13:39)
[2023-06-15] MEDS: FLUoxetine 20 MG CAPSULE PO (13:39)
[2023-06-15] MEDS: ENOXAPARIN 40 MG/0.4 ML SYRINGE SUBCUT (13:39)
[2023-06-15] MEDS: INSULIN LISPRO 100 UNIT/ML 3ML VIAL SUBCUT ×2 (14:44→18:40)
[2023-06-15 17:00] VITALS: BP 142/61; PULSE 62; RESP 16; TEMP 36.3; O2SAT 98
[2023-06-15] MEDS: MAGNESIUM HYDROXIDE 30 ML UDC PO (17:54)
[2023-06-15] MEDS: levoFLOXacin 750 MG/150 ML PIGGYBACK 100 MG IV (17:55)
[2023-06-15 20:00] VITALS: BP 104/45; PULSE 68; RESP 16; TEMP 36.7; O2SAT 98
[2023-06-15] MEDS: ATORVASTATIN 20 MG TABLET 40 MG TUBE (21:52)
[2023-06-16 02:23] VITALS: BP 112/55; PULSE 74; RESP 16; TEMP 36.4; O2SAT 97
[2023-06-16] MEDS: PANTOPRAZOLE 40 MG VIAL IV (06:21)
[2023-06-16 07:00] VITALS: BP 120/96; PULSE 70; RESP 16; TEMP 36.2; O2SAT 95
[2023-06-16 07:54] LABS: BUN Creatinine Ratio 39.3 (6-22); Blood Urea Nitrogen 24 mg/dL (9-20); Calcium 8.4 mg/dL (8.4-10.2); Carbon Dioxide 33 mmol/L (22-32); Chloride 97 mmol/L (98-107); Estimated Glomerular Filt Rate > 60 mL/min (>60); Glucose 156 mg/dL (80-110); HEMOLYSIS < 15 (0-50); Magnesium 2.1 mg/dL (1.6-2.3); Phosphorous 2.2 mg/dL (2.3-3.7); Potassium 3.9 mmol/L (3.4-5.1); Sodium 132 mmol/L (137-145)
[2023-06-16 09:18] VITALS: BP 120/96; PULSE 70
[2023-06-16] MEDS: FLUoxetine 20 MG CAPSULE PO (09:18)
[2023-06-16] MEDS: METOPROLOL IR 25 MG TABLET 12.5 MG TUBE ×2 (09:18→21:47)
[2023-06-16] MEDS: lisinopriL 5 MG TABLET PO (09:18)
[2023-06-16] MEDS: INSULIN LISPRO 100 UNIT/ML 3ML VIAL SUBCUT ×4 (09:19→21:46)
[2023-06-16] MEDS: ENOXAPARIN 40 MG/0.4 ML SYRINGE SUBCUT (09:19)
--- NOTE | 2023-06-16 11:08 | PT.IPTN ---
Current Diagnoses Unspecified severe protein-calorie malnutrition (06/13/23) Dysphagia following cerebral infarction (06/13/23) Other specified soft tissue disorders (06/13/23) Other dysphagia (06/13/23) Surgery Performed Operation Date: 06/13/23 14:45 Actual Procedures p Peg Tube Insertion & - Alok Mott MD s lower left quadrant wide local excision(Left) - Alok Mott MD Physical Therapy Treatment Note M2 PT-IP Current Condition Start: 06/15/23 13:13 Freq: NEEDED Status: Active Protocol: Document 06/15/23 09:55 AB (Rec: 06/15/23 13:36 AB [email or web address]) Physical Therapy Current Condition Current Condition Evaluation Date 06/15/23 Treatment Diagnosis s/p PEG tube placement; difficulty in walking Onset Date 06/13/23 M3 PT-IP Subjective Start: 06/15/23 13:13 Freq: NEEDED Status: Active Protocol: Document 06/16/23 10:43 KS (Rec: 06/16/23 12:26 KS [id number]) Subjective Physical Therapy Visit Type Type Treatment Note Visit Start Time 10:43 Visit Stop Time 11:08 Total Visit Minutes 25 Number of CLERICAL METHODS ANALYST Visits 1 Therapy Pain Assessment Pain Present Pain Present Pain Reported Location Right Foot Scale Used not quanitifed Description With Movement Pain Behaviors Wincing Pain Management Techniques Modification of Treatment,Re- positioning M4 PT-IP Mobility and Gait Start: 06/15/23 13:13 Freq: NEEDED Status: Active Protocol: Document 06/16/23 10:43 KS (Rec: 06/16/23 12:26 KS [id number]) PT-Transfer Assessment Comments Mobility Comments Pt in bed sidelying upon arrival, reports too high pain to try getting OOB but was agreeable to LE exercises while in bed. Pt able to perform ankle pumps on L side, but too painful on R. Able to perform bilateral quad sets, heel slides, and SLR. Pt c/o pain on low back while supine, assisted to return to sidelying and placed pillows for comfort. Pt left in bed w/ all needs in reach. Gait Assessment Comments Gait Comments Did not assess. M5 PT-IP Objective Assessments Start: 06/15/23 13:13 Freq: NEEDED Status: Active Protocol: Document 06/15/23 09:55 AB (Rec: 06/15/23 13:36 AB [id number]) Orientation Orientation/Cognition Level of Alertness Alert Orientation Name,Place,Situation Language Function Ability Hard of Hearing Safety Awareness Decreased Safety Awareness Strength Lower Extremity Strength Assessment Bilaterally Impaired Hip 4-/5 Knee 4-/5 Muscle Tone Muscle Tone WNL Yes M6 PT-IP Treatment Start: 06/15/23 13:13 Freq: NEEDED Status: Active Protocol: Document 06/16/23 10:43 KS (Rec: 06/16/23 12:26 KS [id number]) Physical Therapy Treatment Exercises Exercises Ankle Pumps,Gluteal Sets,Quad Sets,Heel Slides M7 PT-IP Assessment and Plan Start: 06/15/23 13:13 Freq: NEEDED Status: Active Protocol: Document 06/16/23 10:43 KS (Rec: 06/16/23 12:26 KS [id number]) PT Summary Assessment and Plan Potential Rehabilitation Potential Fair Summary Impairments Pain,ROM,Strength,Balance, Coordination,Sensation,Tone, Cognition,Bed Mobility, Transfers,Gait,Activity Tolerance Progress Towards Goals Slow Progress due to Pain,Slow Progress due to Medical Issues,Slow Progress due to Activity Tolerance Assessment Summary Pt unable to tolerate OOB mobility today, but did perform BLE exercises to promote blood flow and strengthening. Pt was very pleasant and cooperative but c /o high level of pain even with light mobility and touch in R foot. At this time, pt will require SNF to improve strength and functional mobility. Goals Bed Mobility Goal Standby Assistance Transfer Goal Standby Assistance,Front Wheeled Walker Gait Goal Standby Assistance,Front Wheel Walker Gait Distance 30 Other Goals improve bed mobility, transfers and ambulation using LRAD/without AD 150 ft SBA Days to Meet Goals 10 Frequency of Treatment Frequency Of Treatment Once a Day Treatment Plan Physical Therapy Treatment Plan Bed Mobility Training,Transfer Training,Gait Training, Therapeutic Exercise,Balance Retraining,Post Op Education, Discharge Planning,Hot or Cold Pack,Neuromuscular Re-ed, Coordination Retraining,Manual Therapy Precautions Abdominal Surgery Precautions Log Roll,Lifting Restrictions, Gait Belt above Incisional Area Recommendations To Nursing Amount of Assist Needed 1 Person Assist Discharge Recommendations PT Discharge Recommendations SNF Rehab Transportation Needs at Discharge Wheelchair/Cabulance
--- NOTE | 2023-06-16 13:42 | P.PN_ITS ---
Subjective Subjective Date Patient Seen: 06/16/23 Time Patient Seen: 13:42 Interval history: Don still feels he is unable to go home and take care of himself. Currently waiting for auth from insurance for [facility] facility [facility]. [facility] tube feeds are going according to plan. Exam Vital Signs (past 8 hours): - 06/16/23 07:00 06/16/23 08:30 06/16/23 09:18 Temperature 97.1 F L Pulse Rate 70 70 Respiratory Rate 16 Blood Pressure 120/96 H 120/96 H Pulse Oximetry 95 Oxygen Delivery Method Room Air Oxygen Delivery Method Room Air Oxygen Flow Rate 0 Const General: No acute distress Objective Labs 06/14/23 18:52 06/16/23 06:50 Labs: Laboratory Results - last 24 hr 06/16/23 06:50 Sodium 132 L Potassium 3.9 Chloride 97 L Carbon Dioxide 33 H BUN 24 H Creatinine 0.61 L Estimated GFR > 60 BUN/Creatinine Ratio 39.3 H Glucose 156 H Calcium 8.4 Phosphorus 2.2 L Magnesium 2.1 PFSH Medical History (Updated 06/12/23 @ 10:43 by Jeimy Garcia RN) Severe protein-calorie malnutrition Dysphagia as late effect of cerebrovascular accident (CVA) Ischemic cardiomyopathy CVA (cerebral vascular accident) (10/2022) Cholelithiasis Persistent depressive disorder Anemia Hyperlipidemia Skin cancer Type 2 diabetes mellitus with hyperglycemia (09/22/15) Mixed hyperlipidemia (09/22/15) Malignant neoplasm of head, 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) Coronary artery disease Essential hypertension Recurrent major depressive disorder, in partial remission Anxiety Type 2 diabetes mellitus without complication Surgical History (Updated 06/12/23 @ 10:43 by Jeimy Garcia RN) Hx of tonsillectomy History of radical neck surgery (~2011) Status post coronary artery bypass graft (~2005) Family History Father Fam hx-ischem heart disease Mother Family history of Alzheimer's disease Social History marital status: number of children: 1 household members: none lives independently: Yes caregiver/support person: No housing: apartment pets and animals: No education level: college occupational status: other current occupational exposures/hazards: No 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
[2023-06-16] MEDS: HYDROCODONE/ACET 5/325 TABLET 1 TAB PO ×2 (14:47→22:14)
[2023-06-16] MEDS: SODIUM,POTASSIUM PHOSPHATES PACKET 2 EACH TUBE (14:47)
--- NOTE | 2023-06-16 16:18 | CM.DPC ---
DCP continued KNOWLEDGE MANAGEMENT ADVISOR reviewed EMR. Per previous CM note, [facility]. [facility] pt[facility]. Per PT note, rec SNF. Per RN, continues to report feeling too weak to dc home. Spoke with Choco at , auth pending. KNOWLEDGE MANAGEMENT ADVISOR emailed Choco updated PN/RN/PT notes, CC'd dcp and CM team. Unable to meet with pt today due to triaging needs. Plan: pending insurance auth for SNF. CM team will continue to follow closely. ALIVIA Thomas
[2023-06-16 20:51] VITALS: BP 120/51; PULSE 66; RESP 18; TEMP 36.4; O2SAT 99
[2023-06-16] MEDS: ATORVASTATIN 20 MG TABLET 40 MG TUBE (21:47)
[2023-06-17 01:41] VITALS: BP 109/50; PULSE 75; RESP 18; TEMP 36.4; O2SAT 99
[2023-06-17 03:47] VITALS: BP 105/36; PULSE 59; RESP 18; TEMP 36.1; O2SAT 94
[2023-06-17 06:34] LABS: BUN Creatinine Ratio 44.4 (6-22); Blood Urea Nitrogen 32 mg/dL (9-20); Carbon Dioxide 35 mmol/L (22-32); Chloride 93 mmol/L (98-107); Estimated Glomerular Filt Rate > 60 mL/min (>60); Glucose 274 mg/dL (80-110); HEMOLYSIS < 15 (0-50); Magnesium 2.1 mg/dL (1.6-2.3); Potassium 4.3 mmol/L (3.4-5.1); Sodium 130 mmol/L (137-145)
[2023-06-17] MEDS: PANTOPRAZOLE 40 MG VIAL IV (06:51)
[2023-06-17] MEDS: INSULIN LISPRO 100 UNIT/ML 3ML VIAL SUBCUT ×4 (08:42→22:32)
[2023-06-17 09:43] VITALS: BP 105/49; PULSE 67
[2023-06-17] MEDS: METOPROLOL IR 25 MG TABLET 12.5 MG TUBE ×2 (09:43→22:31)
[2023-06-17] MEDS: FLUoxetine 20 MG CAPSULE PO (09:43)
[2023-06-17] MEDS: ENOXAPARIN 40 MG/0.4 ML SYRINGE SUBCUT (09:44)
--- NOTE | 2023-06-17 10:26 | PT-IP ANOTE ---
Attempted to see pt this AM, Pt refuses therapy stating he's in too much pain. Consulted with nursing who reports the meds he's prescribed are not controlling his pain at this time.
--- NOTE | 2023-06-17 11:39 | CM.DPC ---
Addendum entered by ALIVIA Zapata 06/17/23 15:01: ADD: SW received a call from [facility] that they just obtained insurance auth and can transport pt tomorrow 06/18 at 1100 if he can tolerate w/c van. SW checked with PT and they are recommending w/c van and SW met bedside with pt and confirmed he feels he can tolerate w/c van as well. [facility] still needs H&P as none in the computer and CC Rachell kindly faxed down to PACU as Dr. Mott in surgery and he will sign and fax back to care Management. PASRR completed but needs Surgeon signature. BF Addendum entered by ALIVIA Zapata 06/17/23 13:28: ADD: SW met bedside with pt and explained role and updated him on [facility] not confirming they could accept and not initiating auth and [facility] acceptance and auth initiation and pt agreeable but disappointed not staying in [place]. Pt very pleasant and chatty and provided social security number for [facility]. SW inquired if pt has DPOA and he confirms he realizes he needs to complete this paperwork and is thinking likely his son and DIL and SW provided the copy of DPOA brochure/pwk to review. BF Original Note: DCP SNF Planning Per MD, pt making progress with his Jevity feeds and still needing SNF at d/c due to pt's comorbidities. ROOSEVELT received a call from Niki at [facility] stating they reviewed referral and can accept pt if needed but aware that [facility] was the preference. [facility] willing to submit for auth beulah if needed. ROOSEVELT contacted Genesis at [facility] and she states that they are still reviewing and have NOT submitted [employer] auth yet and not yet confirmed they have accepted pt and agreeable with another SNF submitting auth. ROOSEVELT spoke to Niki and faxed updated clinicals and confirmed with Manager Of Change Miguelina that pt can utilize Jevity 1.5 as that is the formulary at the SNF and Niki confirms she has submitted [employer] auth this morning. Plan: SW to meet with pt bedside and update on above for likely SNF when insurance SNF auth obtained. ALIVIA Zapata
[2023-06-17 12:34] VITALS: BP 143/52; PULSE 67; RESP 16; TEMP 37.4; O2SAT 100
--- NOTE | 2023-06-17 14:22 | P.PN_ITS ---
Subjective Subjective Date Patient Seen: 06/17/23 Interval history: Complains of right great toe pain. Exam Vital Signs (past 8 hours): - 06/17/23 09:43 06/17/23 12:34 Temperature 99.3 F Pulse Rate 67 67 Respiratory Rate 16 Blood Pressure 105/49 L 143/52 H Pulse Oximetry 100 Oxygen Flow Rate 0 Oxygen Delivery Method Room Air Oxygen Flow Rate 0 Narrative Exam Narrative: Incision is clean dry and intact Peg tube is in place with good function Right great toe is dressed Objective Labs 06/14/23 18:52 06/17/23 06:00 Labs: Laboratory Results - last 24 hr 06/17/23 06:00 Sodium 130 L Potassium 4.3 Chloride 93 L Carbon Dioxide 35 H BUN 32 H Creatinine 0.72 Estimated GFR > 60 BUN/Creatinine Ratio 44.4 H Glucose 274 H D Calcium 8.0 L Phosphorus 3.0 Magnesium 2.1 PFSH Medical History (Updated 06/12/23 @ 10:43 by Jeimy Garcia RN) Severe protein-calorie malnutrition Dysphagia as late effect of cerebrovascular accident (CVA) Ischemic cardiomyopathy CVA (cerebral vascular accident) (10/2022) Cholelithiasis Persistent depressive disorder Anemia Hyperlipidemia Skin cancer Type 2 diabetes mellitus with hyperglycemia (09/22/15) Mixed hyperlipidemia (09/22/15) Malignant neoplasm of head, 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) Coronary artery disease Essential hypertension Recurrent major depressive disorder, in partial remission Anxiety Type 2 diabetes mellitus without complication Surgical History (Updated 06/12/23 @ 10:43 by Jeimy Garcia RN) Hx of tonsillectomy History of radical neck surgery (~2011) Status post coronary artery bypass graft (~2005) Family History Father Fam hx-ischem heart disease Mother Family history of Alzheimer's disease Social History marital status: number of children: 1 household members: none lives independently: Yes caregiver/support person: No housing: apartment pets and animals: No education level: college occupational status: other current occupational exposures/hazards: No 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
[2023-06-17] MEDS: levoFLOXacin 750 MG/150 ML PIGGYBACK 100 MG IV (16:30)
[2023-06-17] MEDS: HYDROMORPHONE 0.5 MG INJ IV ×2 (18:05→22:31)
[2023-06-17 20:40] VITALS: BP 156/58; PULSE 60; RESP 17; TEMP 36.8; O2SAT 100
[2023-06-17] MEDS: ATORVASTATIN 20 MG TABLET 40 MG TUBE (22:31)
[2023-06-18] MEDS: HYDROCODONE/ACET 5/325 TABLET 2 TAB PO ×2 (04:45→09:30)
--- NOTE | 2023-06-18 05:12 | PC.NURSE ---
Addendum entered by Cipriano Ortega R.N. 06/18/23 06:21: This RN went to complete morning tube feeding with patient, patient said no. I do not want any more feedings or medications unless its pain medications. This RN asked if patient wanted to talk further about this, patient declined, stating he has made up his mind. Original Note: Patient verbalizes the need to urinate, but unable to. Bladder scan showed 410ml. Dr. Mott called and iyer catheter order placed and followed through. Patient verbalizes to this RN that he has decided tonight he wants to go home on hospice.
[2023-06-18 08:00] VITALS: BP 131/57; PULSE 62; RESP 16; TEMP 36.4; O2SAT 98
[2023-06-18] MEDS: INSULIN LISPRO 100 UNIT/ML 3ML VIAL SUBCUT (09:27)
[2023-06-18] MEDS: ENOXAPARIN 40 MG/0.4 ML SYRINGE SUBCUT (09:27)
[2023-06-18] MEDS: METOPROLOL IR 25 MG TABLET 12.5 MG TUBE (09:27)
[2023-06-18] MEDS: PANTOPRAZOLE 40 MG VIAL IV (09:27)
[2023-06-18] MEDS: lisinopriL 5 MG TABLET PO (09:28)
[2023-06-18] MEDS: FLUoxetine 20 MG CAPSULE PO (09:30)
--- NOTE | 2023-06-18 11:51 | PC.NURSE ---
Transfer: Pt is going to [facility] in [facility], the patient feels this is best for his situation and he doesn't feel confident with giving tube feedings. Pt goes from one decision to another, should he do hospice or should he not. It is his choice and he was allowed to verb feelings. Report called to Maxi, admission nurse. Reviewed hospital course. Pt TF w/jevity explained as well as pt was sent w/RD order. Discussed dressing change, pt has most of his supplies with him. Questions answered. Admit nurse can call at any time is she needs more info about pt.
--- NOTE | 2023-06-18 13:31 | PM.DS.1 ---
History of Present Illness History of Present Illness Chief complaint: PEG Tube & LLQ wide local exc Discharge Providers Provider Discharge Date: 06/18/23 Primary care physician: Ryan Rodriguez MD Consults: 06/14/23 09:04 Consult to Dietitian, Adult Routine Comment: dysphagia POD1 sp PEG tube Reason For Exam: tube feed recomendations 06/14/23 13:23 Consult to Physical Therapy Evaluate & Treat Comment: Physician Instructions: Evaluate and Treat 06/15/23 12:05 Consult to Hospice Referral Routine Comment: 06/15/23 12:06 Consult to Palliative Care Routine Comment: Consulting Provider: Parvin Cameron Discharge provider: Alok Mott MD Summary Hospital Course Discharge Diagnosis: Malnutrition Hospital Course: Timur Varner was admitted to the hospital following a G-tube placement and removal left lower abdominal soft tissue mass. He was initially admitted for outpatient with bed status because he lives alone however he felt unable to go home on postoperative day 1 because of pain from his right foot and inability to care for himself. The G-tube was used for nutrition on postop day 1. He would no problems with his G-tube site or the left lower abdominal excisional biopsy site. He was accepted to a care home facility on 06/18/2023 Exam Vital Signs (past 8 hours): - 06/18/23 08:00 06/18/23 08:10 Temperature 97.6 F Pulse Rate 62 Respiratory Rate 16 Blood Pressure 131/57 L Pulse Oximetry 98 Oxygen Delivery Method Room Air Oxygen Delivery Method Room Air Oxygen Flow Rate 0 Objective Labs 06/14/23 18:52 06/17/23 06:00 [facility] Medical History (Updated 06/12/23 @ 10:43 by Jeimy Garcia RN) Severe protein-calorie malnutrition Dysphagia as late effect of cerebrovascular accident (CVA) Ischemic cardiomyopathy CVA (cerebral vascular accident) (10/2022) Cholelithiasis Persistent depressive disorder Anemia Hyperlipidemia Skin cancer Type 2 diabetes mellitus with hyperglycemia (09/22/15) Mixed hyperlipidemia (09/22/15) Malignant neoplasm of head, 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) Coronary artery disease Essential hypertension Recurrent major depressive disorder, in partial remission Anxiety Type 2 diabetes mellitus without complication Surgical History (Updated 06/12/23 @ 10:43 by Jeimy Garcia RN) Hx of tonsillectomy History of radical neck surgery (~2011) Status post coronary artery bypass graft (~2005) Family History Father Fam hx-ischem heart disease Mother Family history of Alzheimer's disease Social History marital status: number of children: 1 household members: none lives independently: Yes caregiver/support person: No housing: apartment pets and animals: No education level: college occupational status: other current occupational exposures/hazards: No 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 leisure activities: reading and other Smoking Status: Never smoker Tobacco: How many years used: 0 quit status: quit date established second hand exposure: Yes alcohol intake: current substance use type: does not use Discharge Plan Discharge Plan Patient Disposition: SNF I certify the postop hospital care home care is medically necessary on a continuing basis for any conditions for which he/ she received care during this hospitalization.: Yes The receiving facility has agreed to accept transfer and provide medical treatment.: Yes Discharge orders & Medications Discharge Orders: Discharge (Order); Ordered 06/18/23 Ordered By: Alfonso Gomez Prescriptions: New hydrocodone-acetaminophen 7.5-325 mg/15 mL solution 15 ml feeding tube Q6H PRN (Reason: pain) Qty: 200 0RF Continued ferrous sulfate [Feosol] 325 mg (65 mg iron) tablet 650 mg PO DAILY cholecalciferol (vitamin D3) 50 mcg (2,000 unit) capsule 50 mcg PO DAILY lisinopril 5 mg tablet 5 mg PO DAILY Qty: 90 3RF (DME) Disabled Parking See Rx Instructions .ROUTE .MEDSUPPLY Qty: 1 0RF Rx Instructions: Patient qualifies for disabled parking as per the attached form. Ensure High Protein Liquid 1 ea PO DAILY Qty: 5688 12RF atorvastatin [Lipitor] 40 mg tablet 40 mg PO Q DAY Qty: 90 3RF pantoprazole [Protonix] 40 mg tablet,delayed release (DR/EC) 40 mg PO QDAY Qty: 90 3RF metoprolol succinate 25 mg tablet extended release 24 hr 25 mg PO DAILY Qty: 90 3RF fluoxetine 20 mg capsule 20 mg PO QDAY Qty: 90 3RF (DME) blood sugar diagnostic [Blood Glucose Test] Strip See Rx Instructions .ROUTE .MEDSUPPLY Qty: 250 6RF Rx Instructions: for Lifestyle LIte meter, use to check sugar up to 6 times a day Lantus Solostar U-100 Insulin 100 unit/mL (3 mL) insulin pen 45 unit subcut DAILY Qty: 75 11RF Novolog FlexPen U-100 Insulin 100 unit/mL (3 mL) insulin pen 1 - 12 unit SUBCUT QACHS PRN (Reason: hyperglycemia) Qty: 30 3RF levofloxacin 250 mg tablet 750 mg PO DAILY Follow up/Referrals: Ryan Rodriguez MD [Primary Care Provider] - 2 Weeks Diet/Activity/Treatments Diet: Tube Feeding Skin/Wound/Dressing Care Report to your healthcare provider any signs of infection, such as:: chills, fever, increased pain, unusual drainage and unusual redness [facility] Reason for rehabilitation: Recovery r/t decondition Rehab type: Physical therapy and Occupational therapy Visit Report/Discharge Packet Instructions: How to Care for Your PEG Tube, DI for Percutaneous Endoscopic Gastrostomy (PEG), How to Use Your Feeding Tube, [facility]: Wound Care Stand Alone Forms: Patient Portal/API Discharge Data Primary Care Provider: Ryan Rodriguez Attending Provider: Alok Mott VTE Deep Vein Thrombosis/Pulmonary Embolism Present on Admission: No
== END 2023-06-18 11:20 ==
LOC: OR 13:23 → AC 15:04
PROVIDERS: Surgery; PCP Internal Medicine; Referring Provider Surgery; Visit Provider Surgery
PROC: 0DH63UZ Insertion of Feeding Device into Stomach, Percutaneous Approach (ICD-10-PCS; CPT 43246; principal; 2023-06-13 14:45)
PROC: (CPT 22903; 2023-06-13 14:45)
DX: M79.9 Soft tissue disorder, unspecified (principal); I69.391 Dysphagia following cerebral infarction; E11.9 Type 2 diabetes mellitus without complications; Z79.4 Long term (current) use of insulin; Z85.828 Personal history of other malignant neoplasm of skin
CPT/HCPCS: 22903; 43246; 36415; 80048; 80053; 82962; 83735; 84100; 85025; 97110; 97162; 97530; C9113; J1170; J1650; J1815; J1956; J2704; J3010